=== PATIENT | male | born 1945 | race Caucasian/White ===

== ENCOUNTER 2019-08-29 13:36 | Outpatient (CLI) | payer MEDICARE, SELFPAY ==
--- NOTE | ~2019-08-29 | XR_ITS ---
EXAMINATION: XR chest 2V DATE: 08/29/2019 13:56 INDICATION: Shortness of breath TECHNIQUE: Frontal and lateral views of the chest are obtained COMPARISON: 09/22/2018 FINDINGS: There is severe emphysema. Patchy bilateral airspace opacities are present in the lung base s and right midlung zone. There is a nodular opacity of the right lung base. The cardiomediastinal si lhouette is normal. There is no pleural effusion or pneumothorax. There is mild thoracic spondylosis. IMPRESSION: 1. Patchy airspace opacities and nodular opacity of the right lung base which could be infectious or inflammatory. Recommend followup radiographs in 10-14 days after appropriate therapy to evaluate for improvement/resolution. 2. Emphysema. Reviewed, dictated and finalized at location B. IMPRESSION: 1. Patchy airspace opacities and nodular opacity of the right lung base which c ould be infectious or inflammatory. Recommend followup radiographs in 10-14 day s after appropriate therapy to evaluate for improvement/resolution. 2. Emphysema.
== END 2019-08-29 13:37 | disposition home or self-care (01) ==
PROVIDERS: PCP Family Medicine; Visit Provider Family Medicine
DX: R06.02 Shortness of breath (principal); J43.9 Emphysema, unspecified; R91.8 Other nonspecific abnormal finding of lung field
CPT/HCPCS: 71046

== ENCOUNTER 2019-09-15 11:17 | Outpatient (CLI) | payer MEDICARE, SELFPAY ==
--- NOTE | ~2019-09-15 | XR_ITS ---
EXAMINATION: XR chest 2V DATE: 09/15/2019 11:40 INDICATION: Pneumonia, unspecified organism. TECHNIQUE: Frontal and lateral views of the chest were obtained. COMPARISON: Chest 2 views 08/29/2019, 09/22/2018, chest CT 05/30/2017 FINDINGS: The lungs are hyperexpanded, consistent with emphysema. There are mild airspace opacities i n right mid and lower lung zones with a peripheral predominance. No pleural effusion or pneumothorax. The heart size is normal. IMPRESSION: 1. Unchanged mild peripheral airspace opacities in right mid and lower lung zones, consistent with at electasis/scarring versus pneumonia. 2. Emphysema. Reviewed, dictated and finalized at location A. IMPRESSION: 1. Unchanged mild peripheral airspace opacities in right mid and lower lung zon es, consistent with atelectasis/scarring versus pneumonia. 2. Emphysema.
== END 2019-09-15 11:18 | disposition home or self-care (01) ==
PROVIDERS: PCP Family Medicine; Visit Provider Physician Assistant Medical
DX: J18.9 Pneumonia, unspecified organism (principal); J43.9 Emphysema, unspecified; R91.8 Other nonspecific abnormal finding of lung field
CPT/HCPCS: 71046

== ENCOUNTER 2020-08-05 09:57 | Outpatient (CLI) | payer MEDICARE, SELFPAY | END 2020-08-05 09:58 | disposition home or self-care (01) | LOC: ANHCOVIDVC 09:57 | PROVIDERS: PCP Family Medicine | DX: Z23 Encounter for immunization (principal) | CPT/HCPCS: 0001A; 91300 ==

== ENCOUNTER 2020-08-26 10:02 | Outpatient (CLI) | payer MEDICARE, SELFPAY | END 2020-08-26 10:03 | disposition home or self-care (01) | LOC: ANHCOVIDVC 10:02 | PROVIDERS: PCP Family Medicine | DX: Z23 Encounter for immunization (principal) | CPT/HCPCS: 0002A; 91300 ==

== ENCOUNTER 2020-10-21 15:38 | Outpatient (CLI) | payer MEDICARE, SELFPAY ==
--- NOTE | ~2020-10-21 | CT_ITS ---
EXAMINATION:CT lung screening DATE: 10/21/2020 16:01 INDICATION: Personal history of tobacco dependence. Current smoker with 60 pack year history. TECHNIQUE: Computed tomography (CT) of the chest was performed without intravenous contrast. Automate d exposure control and iterative reconstruction technique were employed. The dose-length product (DLP ) was 116.44 mGy-cm. COMPARISON: Chest CT 05/30/2017 FINDINGS: There is severe emphysema. There is mild atelectasis in right middle lobe and right lower l obe. No pleural effusion. The heart size is normal. There are coronary artery calcifications. There a re calcifications of the aortic valve. No pericardial effusion. The central pulmonary arteries are en larged, consistent with pulmonary arterial hypertension. There are cysts in the liver measuring up to 2.5 cm. There is bilateral gynecomastia. There is mild thoracic spondylosis. IMPRESSION: 1. Lung-RADS category 1: Negative. Continue annual screening with noncontrast low-dose chest CT in 12 months. Reviewed, dictated and finalized at location A. IMPRESSION: 1. Lung-RADS category 1: Negative. Continue annual screening with noncontrast l ow-dose chest CT in 12 months.
== END 2020-10-21 15:39 | disposition home or self-care (01) ==
PROVIDERS: PCP Family Medicine; Visit Provider Internal Medicine Critical Care Medicine
DX: Z12.2 Encounter for screening for malignant neoplasm of respiratory organs (principal); Z87.891 Personal history of nicotine dependence
CPT/HCPCS: 71271

== ENCOUNTER 2020-12-17 12:14 | Outpatient (RCR) | payer MEDICARE, SELFPAY ==
[2020-12-17 14:29] VITALS: BMI 25.1
== END 2021-01-28 12:07 | disposition home or self-care (01) ==
LOC: ANHWOC 12:14
PROVIDERS: PCP Family Medicine; Visit Provider Urology
DX: C67.9 Malignant neoplasm of bladder, unspecified (principal)
CPT/HCPCS: 99212; A9270; G0463

== ENCOUNTER 2021-05-08 07:48 | Outpatient (RCR) | payer MEDICARE, SELFPAY | END 2021-07-16 23:59 | disposition home or self-care (01) | LOC: ANHWOC 07:48 | PROVIDERS: PCP Family Medicine; Visit Provider Urology | DX: C67.9 Malignant neoplasm of bladder, unspecified (principal) | CPT/HCPCS: 99213; G0463 ==

== ENCOUNTER 2021-11-01 13:03 | Emergency (ER) | payer MEDICARE, SELFPAY ==
[2021-11-01 13:18] VITALS: BP 158/74; PULSE 103; RESP 18; TEMP 36.2; O2SAT 95
--- NOTE | 2021-11-01 13:36 | ED.SKABFB ---
HPI - Skin/Abscess/Foreign Bdy General Chief complaint: Skin/Abscess/Foreign Body Stated complaint: itchy rash all over body Time Seen by Provider: 11/01/21 13:16 History of Present Illness HPI narrative: 76-year-old male with history of bullous pemphigoid who has been following up with his doctor for multiple months and has had multiple courses of steroids, doxycycline, amongst many other treatments, with only temporary relief, presents here with the same symptoms, he is mostly concerned about the itchiness. Denies any pain, fevers, or any signs of infection. Related Data Home Medications Medication Instructions Recorded Confirmed niacinamide 500 mg tablet 500 mg PO BID 06/30/21 10/14/21 hydrochlorothiazide 12.5 mg capsule 12.5 mg PO BID 10/14/21 10/14/21 Allergies Allergy/AdvReac Type Severity Reaction Status Date / Time No Known Allergies Allergy Unknown Verified 11/01/21 13:21 Review of Systems Review of Systems: CONST: No fever. HEENT: No sore throat C/V: No chest pain RESP: No cough GI: No nausea/vomiting : No dysuria. M/S: No joint pain. SKIN: Diffuse rash all over body, worst in right lower extremity NEURO: [No headache or focal numbness or weakness] PSYCH: [No depression] FORMERLY [facility], 1928–1983 Past Medical History Medical History BMI 23.0-23.9, adult BMI 24.0-24.9, adult BMI 25.0-25.9,adult BMI 26.0-26.9,adult BMI 27.0-27.9,adult BMI 28.0-28.9,adult BMI 35.0-35.9,adult Bullous pemphigoid Hyperkalemia Hyperlipidemia associated with type 2 diabetes mellitus Hypertension Malignant neoplasm of bladder, unspecified Pneumonia and influenza Pulmonary artery hypertension Rash Tobacco abuse Surgical History Surgical History History of radical prostatectomy Family History Family History Father Cancer Diabetes mellitus Mother Diabetes mellitus Acute myocardial infarction Sibling No problems noted. 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 EYES: EOMI, conjunctiva normal ENT: Hearing grossly intact LUNGS: Nonlabored breathing. HEART: [Regular rate and rhythm] ABD: Stoma in place draining clear urine EXT: Normal range of motion, multiple vesicles RLE non painful, vesicles RUE and several on back, not in dermatomal distribution SKIN: Per above NEURO: [Alert and oriented x 3. No gross focal sensory or strength deficits.] PSYCH: Normal affect Course Course Emergency Course: 76-year-old male who has been dealing with chronic skin rash and itchiness presents with itchiness, vital signs within acceptable limits, distribution and lack of pain not consistent with shingles infection, no signs of infection of the rash, patient very well-appearing, as he already is being followed by his primary care doctor for the bullous pemphigoid I will not try to alter his medications at this time, I will start him on medications for pruritus which include hydroxyzine at night, Zyrtec during the day. He is urged to follow-up with his primary care doctor. Stable fo
--- NOTE | 2021-11-01 13:49 | PC.NURSE ---
Pt has itching and redness and tenderness to the stoma site on his urostomy bag, skin is irritated and states it is chronic.
== END 2021-11-01 14:06 | disposition home or self-care (01) ==
LOC: ANHED 13:48
PROVIDERS: Emergency Provider Emergency Medicine; PCP Family Medicine
DX: L29.9 Pruritus, unspecified (principal); L12.0 Bullous pemphigoid; F17.210 Nicotine dependence, cigarettes, uncomplicated; I10 Essential (primary) hypertension; E78.5 Hyperlipidemia, unspecified; E11.9 Type 2 diabetes mellitus without complications
CPT/HCPCS: 99283

== ENCOUNTER 2021-11-05 12:32 | Outpatient (RCR) | payer MEDICARE, SELFPAY ==
[2021-11-05 14:28] VITALS: BMI 28.6
== END 2022-01-19 08:08 | disposition home or self-care (01) ==
LOC: ANHWOC 12:32
PROVIDERS: PCP Family Medicine; Visit Provider Nurse Practitioner Family
DX: L30.9 Dermatitis, unspecified (principal)
CPT/HCPCS: 99213; G0463

== ENCOUNTER 2021-12-01 09:23 | Emergency (ER) | payer MEDICARE, SELFPAY ==
[2021-12-01] VITALS (7 sets, daily range): BP systolic 112–120; BP diastolic 71–80; PULSE 76–87; RESP 16–18; TEMP 36.4; O2SAT 92–96
--- NOTE | ~2021-12-01 | US_ITS ---
EXAMINATION: US venous doppler [facility] DATE: 12/01/2021 10:34 INDICATION: Bilateral lower limb swelling TECHNIQUE: Grayscale ultrasound images without and with compression and Doppler ultrasound images of the bilateral lower extremity veins were obtained. COMPARISON: None. FINDINGS: The visualized portions of right common femoral vein, profunda (deep) femoral vein, femoral vein, pop liteal vein, posterior tibial veins, peroneal veins, lesser saphenous vein and greater saphenous vein outflow are patent. 3.2 x 1.2 x 3.7 cm Evans cyst at the right popliteal fossa. The visualized portions of left common femoral vein, profunda femoral vein, femoral vein, popliteal v ein, posterior tibial veins, peroneal veins, lesser saphenous vein and greater saphenous vein outflow are patent. IMPRESSION: 1. No deep venous thrombosis in either lower limb. 2. Small Evans's cyst at the right popliteal fossa. Reviewed, dictated and finalized at location A.
--- NOTE | ~2021-12-01 | XR_ITS ---
EXAMINATION: XR chest 2V DATE: 12/01/2021 09:59 INDICATION: Fatigue and shortness of breath TECHNIQUE: AP and lateral views of the chest are obtained. COMPARISON: None available FINDINGS: The lungs are hyperinflated but free of acute opacities. There is no pleural effusion or pn eumothorax. The cardiomediastinal silhouette is normal. There is mild thoracic spondylosis. IMPRESSION: 1. No acute cardiopulmonary abnormality. Reviewed, dictated and finalized at location A.
--- NOTE | 2021-12-01 09:34 | ECG_ITS ---
Measurements Intervals [place] Rate: 77 P: 77 UT: 164 QRS: -21 QRSD: 90 T: -1 QT: 339 QTc: 385 Interpretive Statements SINUS RHYTHM WITH OCCASIONAL SUPRAVENTRICULAR PREMATURE COMPLEXES LOW QRS VOLTAGE IN PRECORDIAL LEADS [QRS DEFLECTION < 1.0 mV IN CHEST LEADS] ANTERIOR MYOCARDIAL INFARCTION , OLD [40+ ms Q WAVE IN V1-V4] COMPARED TO ECG 03/29/2019 15:44:54 T-WAVE ABNORMALITIES HAVE IMPROVED Electronically Signed On 12-01-2021 15:52:10 CDT by Cory Phillips M.D.
--- NOTE | 2021-12-01 09:35 | ED.BACK ---
HPI - Back Pain/Injury General Chief Complaint: Back Pain/Injury Stated Complaint: kidney problems/pain x 6-7 days Time Seen by Provider: 12/01/21 09:23 History of Present Illness HPI Narrative: Patient is a 76-year-old male here with a history of DM, COPD, pulmonary HTN, bullous pemphigoid for evaluation of fatigue and weakness over the past several weeks. Patient states that he has been feeling generally unwell and fatigued. He has been evaluated by his primary care provider without clear etiology, although he was treated for UTI about a month ago. Of note, urine culture did not grow any bacteria. Does note that he feels short of breath and nauseated but denies vomiting. He has a history of chronic leg swelling, was taking a diuretic but was taken off of this due to kidney function. Leg swelling is now worse. States his low back with aching over the past couple of days, but his not having any back pain today. Denies chest pain, fevers, chills, diarrhea, constipation, blood in stools, changes to his weight. He has a uterotomy bag due to bladder and prostate cancer. Related Data Home Medications Medication Instructions Recorded Confirmed niacinamide 500 mg tablet 500 mg PO BID 06/30/21 11/25/21 hydrochlorothiazide 12.5 mg capsule 12.5 mg PO BID 10/14/21 11/25/21 empagliflozin 25 mg tablet 25 mg PO DAILY 11/25/21 11/25/21 (Jardiance) Allergies Allergy/AdvReac Type Severity Reaction Status Date / Time No Known Allergies Allergy Unknown Verified 12/01/21 09:28 Review of Systems Review of Systems: Gen: Reports weakness. Denies fevers or chills Eyes: Denies eye pain or visual change ENT: Denies congestion Respiratory: Denies shortness of breath or cough CV: Denies chest pain or palpitations GI: Reports nausea. Denies abdominal pain, emesis or diarrhea denies burning, urgency, frequency or hematuria Musculoskeletal: Reports back pain, resolved. Reports leg swelling. Denies muscle pain Neuro: Denies numbness, tingling, focal weakness Skin: Denies rash Except as documented, all other systems reviewed and negative PMFSH Past Medical History Medical History BMI 23.0-23.9, adult BMI 24.0-24.9, adult BMI 25.0-25.9,adult BMI 26.0-26.9,adult BMI 27.0-27.9,adult BMI 28.0-28.9,adult BMI 35.0-35.9,adult Bullous pemphigoid Hyperkalemia Hyperlipidemia associated with type 2 diabetes mellitus Hypertension Malignant neoplasm of bladder, unspecified Pneumonia and influenza Pulmonary artery hypertension Rash Tobacco abuse Surgical History Surgical History History of radical prostatectomy Family History Family History Father Cancer Diabetes mellitus Pancreatic cancer Mother Diabetes mellitus Acute myocardial infarction Heart disease Sibling No problems noted. 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 Head: Normocephalic and atraumatic. EYES: PERRLA/EOMI, conjunctivae clear NOSE: No nasal drainage EARS: External ear normal in appearance THROAT: Oropharynx is clear. Mucous membranes are moist. NECK: [place]
[2021-12-01 10:02] LABS: Basophils Percent Auto 0.1 % (0.2-1.2); Hematocrit 50.9 % (42.0-52.0); Immature Granulocyte Absolute 0.14 K/mm3 (0.00-0.031); Immature Granulocyte Percent A 0.9 % (0-0.5); Lymphocytes Absolute Auto 0.57 K/mm3 (0.9-3.2); Lymphocytes Percent Auto 3.8 % (18.3-44.2); Mean Corpuscular HGB Conc 33.4 g/dl (32-36); Mean Corpuscular Hemoglobin 28.9 pg (26-34); Mean Corpuscular Volume 86.4 fl (80-100); Mean Platelet Volume 8.9 fl (7.4-10.4); Monocytes Absolute Auto 0.5 K/mm3 (0.1-0.6); Monocytes Percent Auto 3.3 % (2.6-8.5); Neutrophils Absolute Auto 13.8 K/mm3 (1.3-6.7); Neutrophils Percent Auto 91.9 % (45.5-73.1); Nucleated Red Blood Cells Perc 0.1 % (0.0-0.2); Platelet Count Result 179 k/mm3 (150-375); Red Blood Count 5.89 M/mm3 (4.6-6.20); Red Cell Distribution Width 14.2 % (11.5-14.5)
[2021-12-01 10:04] LABS: Appearance Urine Clear (Clear); Bilirubin Urine Negative (Negative); Blood Urine 2+ (Negative); Color Urine Yellow (Yellow); Glucose Urine UA 1+ mg/dL (Negative); Ketones Urine Negative (Negative); Leukocyte Esterase Ur Negative LEU/UL (Negative); Nitrate Urine Negative (Negative); Protein Urine 3+ mg/dL (Negative); Specific Grav Ur 1.015 (1.001-1.035); Urobilinogen Urine 0.2 mg/dL (<2.0)
[2021-12-01 10:07] LABS: Add Urine Microscopic? YES
[2021-12-01 10:15] LABS: Bacteria Urine Trace /hpf; Mucus Urine Rare /lpf; Squamous Epithelial Cell Urine Rare /hpf (Few)
[2021-12-01 10:21] LABS: Sodium 132 mmol/L (137-145)
[2021-12-01 10:25] LABS: Alanine Aminotransferase 39 U/L (6-50); Albumin Level 3.9 g/dL (3.5-5.1); Alkaline Phosphatase 50 U/L (38-126); Anion Gap 7 mmol/L (8-16); Aspartate Amino Transferase 29 U/L (17-59); Bilirubin,Total 0.6 mg/dL (0.2-1.3); Blood Urea Nitrogen 60 mg/dL (9-20); Calcium 10.4 mg/dL (8.4-10.2); Carbon Dioxide 20 mmol/L (22-30); Chloride 105 mmol/L (98-107); Estimated CRCL calculation 35 ml/min; Estimated Glomerular Filt Rate 45; Glucose 202 mg/dL (65-110); Potassium 4.3 mmol/L (3.4-5.0)
[2021-12-01 10:28] LABS: NT Pro B Type Natriuretic Pept 268 pg/mL (5-100)
[2021-12-01 10:45] LABS: Magnesium 2.1 mg/dL (1.6-2.3)
--- NOTE | 2021-12-01 12:16 | PC.NURSE ---
home medication list put in pt. discharge folder. Pt. signed discharge instruction sheet but refused verbal discharge instructions. Pt. in NAD. Shirt returned to pt. Pt. refuses to change and didn't want me checking to see if his gown is untied. Asked Why isn't my stupid here? . States he cannot provide a number to call to notify his he needs picked up.
--- NOTE | 2021-12-01 12:16 | PC.NURSE ---
IV lock was in L AC, removed, dressing applied. Multiple bruises on LUE prior to removal.
--- NOTE | 2021-12-01 12:23 | PC.NURSE ---
contacted by Gunjan Brunner RN prior to this time supposed to be enroute.
== END 2021-12-01 17:02 | disposition home or self-care (01) ==
PROVIDERS: Physician Assistant; Emergency Provider Emergency Medicine; PCP Family Medicine
DX: L03.115 Cellulitis of right lower limb (principal); J44.9 Chronic obstructive pulmonary disease, unspecified; E11.69 Type 2 diabetes mellitus with other specified complication; E78.5 Hyperlipidemia, unspecified; I10 Essential (primary) hypertension; I27.21 Secondary pulmonary arterial hypertension; M79.89 Other specified soft tissue disorders; R06.02 Shortness of breath; Z85.51 Personal history of malignant neoplasm of bladder; Z87.01 Personal history of pneumonia (recurrent); Z90.79 Acquired absence of other genital organ(s); Z87.891 Personal history of nicotine dependence; Z79.84 Long term (current) use of oral hypoglycemic drugs; R94.31 Abnormal electrocardiogram [ECG] [EKG]
CPT/HCPCS: 36415; 71046; 80053; 81001; 83735; 83880; 84100; 85025; 93005; 93970; 99284

== ENCOUNTER 2021-12-07 19:40 | Inpatient (IN) | payer MEDICARE, SELFPAY ==
[2021-12-07] VITALS (21 sets, daily range): BP systolic 100–131; BP diastolic 49–68; PULSE 90–113; RESP 15–24; TEMP 36.6; O2SAT 93–100
--- NOTE | ~2021-12-07 | XR_ITS ---
EXAMINATION: XR chest 1V portable Exam Date/Time: 12/07/2021 20:17 CDT HISTORY: cough Comparison: 12/01/2021. RESULT: Lines, tubes, and devices: None. Lungs and pleura: Senescent change, otherwise clear. Cardiomediastinal silhouette: Stable cardiomediastinal silhouette. Other: No acute osseous or upper abdominal finding. IMPRESSION: No acute cardiopulmonary process. Reviewed, dictated and finalized at location K.
--- NOTE | ~2021-12-07 | CT_ITS ---
EXAMINATION: CT abdomen pelvis wo con DATE: 12/07/2021 21:09 INDICATION: weaknesss TECHNIQUE: Computed tomography (CT) of the abdomen and pelvis was performed without intravenous contr ast. Automated exposure control and iterative reconstruction technique were employed. The dose-length product was 686.73 mGy-cm. COMPARISON: 05/12/2006. FINDINGS: Lower thorax: Senescent changes in the lungs. Right lower pleural bleb with surrounding fibrosis. Aor tic valve calcification Liver: Normal. Biliary/Gallbladder: Gallbladder is normal. No bile duct dilation. Pancreas: No mass or duct dilation. Spleen: Normal. Adrenals:No mass. Kidneys: No mass, stone, or hydronephrosis. Bilateral perinephric stranding. GI tract: No small or large bowel dilation. Normal appendix. Post surgical changes in the bowel inclu ding a dilated appearing right lower quadrant small bowel anastomosis, without any dilation of proxim al small bowel, right lower quadrant ostomy, and anastomosis of the bilateral ureters with the ileum. Diverticulosis without diverticulitis. Mesentery/Peritoneum: No ascites, mass, or free air. Retroperitoneum: No mass. Atherosclerotic abdominal aortic and/or arterial calcifications. 3.2 cm inf rarenal abdominal aortic aneurysm. Pelvis: Bladder is surgically absent.. Soft Tissues: Large fat herniation into the right lower quadrant ostomy, without bowel obstruction. Bones: No acute osseous finding. IMPRESSION: No acute abdominopelvic process. Reviewed, dictated and finalized at location K.
--- NOTE | ~2021-12-07 | NM_ITS ---
EXAMINATION: NM GI bleeding DATE: 12/16/2021 16:56 CDT INDICATION: GI bleeding. TECHNIQUE: 22.9 mCi Tc 99m in vitro labeled red cells administered intravenously. Scintigraphic imag es of the abdomen were obtained through 1 hour. FINDINGS: There is abnormal radiotracer accumulation in the right central abdomen which progresses in to the left abdomen over the course of the examination. IMPRESSION: 1. Active GI bleed which may originate in the proximal small bowel or the transverse colon. Reviewed, dictated and finalized at location A. IMPRESSION: 1. Active GI bleed which may originate in the proximal small bowel or the booth sverse colon.
--- NOTE | ~2021-12-07 | US_ITS ---
EXAMINATION: US renal BI DATE: 12/09/2021 12:42 INDICATION: Elevated creatinine TECHNIQUE: Multiple grayscale and Doppler ultrasound images of the kidneys were obtained. COMPARISON: None. FINDINGS: The right kidney measures 11.9 x 5.7 x 7.0 cm. The left kidney measures 11.4 x 6.1 x 6.2 cm . The kidneys demonstrate normal parenchymal echogenicity. There is no hydronephrosis. The bladder is not distended. IMPRESSION: 1. Normal kidneys without hydronephrosis. Reviewed, dictated and finalized at location B.
--- NOTE | ~2021-12-07 | NM_ITS ---
EXAMINATION: NM GI bleeding DATE: 12/11/2021 14:59 INDICATION: Gastrointestinal bleed TECHNIQUE: 18.6 mCi Tc 99m UltraTag in vitro labeled red cells administered intravenously. Scintigra phic images of the abdomen were obtained through 43 minutes. FINDINGS: Activity is first seen in the bowels in the right upper quadrant at 3-4 minutes in the margareth on of the proximal duodenum. There is good movement movement of the activity fossa midline extending into a the jejunum initially in the left upper quadrant and left subsequently in the more caudally in the left abdomen. IMPRESSION: 1. Active gastrointestinal bleed which appears to originate in the proximal duodenum in the right up per quadrant which suggests possibility of peptic ulcer disease. Consider endoscopy for further evalu ation. Reviewed, dictated and finalized at location A. IMPRESSION: 1. Active gastrointestinal bleed which appears to originate in the proximal du odenum in the right upper quadrant which suggests possibility of peptic ulcer d isease. Consider endoscopy for further evaluation.
--- NOTE | 2021-12-07 19:50 | ECG_ITS ---
Measurements Intervals [place] Rate: 93 P: 76 MO: 166 QRS: -41 QRSD: 86 T: 60 QT: 291 QTc: 363 Interpretive Statements SINUS RHYTHM LOW QRS VOLTAGE IN LIMB LEADS INFERIOR INFARCT, AGE INDETERMINATE ANTEROSEPTAL INFARCT, AGE INDETERMINATE BORDERLINE T WAVE ABNORMALITY- HIGH LATERAL LEADS BASELINE ARTIFACT- I, III, AVL, V4 ABNORMAL ECG Electronically Signed On 12-07-2021 21:08:24 CDT by Osmani Cain D.O.
[2021-12-07 20:17] LABS: Basophils Percent Auto 0.2 % (0.2-1.2); Hemoglobin 17.7 g/dL (14.0-18.0); Immature Granulocyte Absolute 0.16 K/mm3 (0.00-0.031); Immature Granulocyte Percent A 1.3 % (0-0.5); Lymphocytes Absolute Auto 0.35 K/mm3 (0.9-3.2); Lymphocytes Percent Auto 2.8 % (18.3-44.2); Mean Corpuscular HGB Conc 33.4 g/dl (32-36); Mean Corpuscular Hemoglobin 28.3 pg (26-34); Mean Corpuscular Volume 84.8 fl (80-100); Mean Platelet Volume 8.8 fl (7.4-10.4); Monocytes Absolute Auto 0.2 K/mm3 (0.1-0.6); Monocytes Percent Auto 1.7 % (2.6-8.5); Neutrophils Absolute Auto 11.8 K/mm3 (1.3-6.7); Nucleated Red Blood Cells Perc 0.3 % (0.0-0.2); Platelet Count Result 209 k/mm3 (150-375); Red Blood Count 6.25 M/mm3 (4.6-6.20); Red Cell Distribution Width 14.2 % (11.5-14.5); White Blood Count 12.6 K/mm3 (4.5-10.0)
[2021-12-07 20:21] LABS: Alveolar/Arterial O2 Gradient 65.2 mmHg; Base Excess ABG -14.9 mEq/l (+/-2.0); Fractional Inspired Oxygen 28 %; HCO3 ABG 11.8 mEq/l (22.0-26.0); Oxygen Content ABG 23.3 %vol (16.0-22.0); Oxyhemoglobin 95.6 % THb (90.0-100.0); PCO2 ABG 31.5 mmHg (35.0-45.0); PO2 ABG 97.3 mmHg (80.0-100.0); PO2 FiO2 Ratio Arterial Blood 3.48 %; Total Hemoglobin 17.3 g/dL (12.0-18.0)
[2021-12-07 20:23] LABS: Device NASAL CANNULA; Modified Allen's Test Pass; Site Drawn RIGHT RADIAL; pH ABG 7.193 (7.350-7.450)
[2021-12-07 20:28] LABS: Burr Cells 1+ (NORMAL); Platelet Estimate Adequate (Adequate); Poikilocytosis 1+ (NORMAL)
[2021-12-07 20:29] LABS: Alanine Aminotransferase 41 U/L (6-50); Albumin Level 3.8 g/dL (3.5-5.1); Alkaline Phosphatase 53 U/L (38-126); Anion Gap 14 mmol/L (8-16); Aspartate Amino Transferase 34 U/L (17-59); Bilirubin,Total 0.6 mg/dL (0.2-1.3); Blood Urea Nitrogen 95 mg/dL (9-20); Carbon Dioxide 12 mmol/L (22-30); Chloride 103 mmol/L (98-107); Glucose 228 mg/dL (65-110); Potassium 5.9 mmol/L (3.4-5.0); Sodium 129 mmol/L (137-145)
[2021-12-07 20:38] LABS: Estimated CRCL calculation 16 ml/min; Estimated Glomerular Filt Rate 18; NT Pro B Type Natriuretic Pept 555 pg/mL (5-100)
[2021-12-07] MEDS: SODIUM CHLORIDE 0.9% IV 1,000 ML 999 ML IV CONT (20:49)
--- NOTE | 2021-12-07 20:55 | ED.WEAKNESS ---
HPI - Weakness General Chief complaint: Weakness Stated complaint: weakness diarrhea lethargy Time Seen by Provider: 12/07/21 19:47 Source: patient History of Present Illness HPI Narrative: Patient presents with generalized weakness and fatigue. Patient reports he was seen the other day was diagnosed with a skin infection discharged home on antibiotics. Reports his cellulitis has improved however his weakness continued to worsen so they return to the ER for further evaluation. Patient denies any focal areas of pain such as chest pain or abdominal pain. He denies nausea and vomiting. He does report diarrhea since initiating his antibiotics for cellulitis. He is also reporting shortness of breath and cough. Reports overall he feels like his weakness is progressively worse over the past couple weeks Related Data Home Medications Medication Instructions Recorded Confirmed niacinamide 500 mg tablet 500 mg PO BID 06/30/21 11/25/21 hydrochlorothiazide 12.5 mg capsule 12.5 mg PO BID 10/14/21 11/25/21 empagliflozin 25 mg tablet 25 mg PO DAILY 11/25/21 11/25/21 (Jardiance) doxycycline hyclate 100 mg capsule cap 12/07/21 prednisone 20 mg tablet tablet 12/07/21 rosuvastatin 40 mg tablet tablet 12/07/21 Allergies Allergy/AdvReac Type Severity Reaction Status Date / Time No Known Allergies Allergy Unknown Verified 12/07/21 19:52 Review of Systems Review of Systems: CONSTITUTIONAL: Denies fever, chills, or sweats. EYES: Denies visual changes, redness, or discharge. ENT: Denies rhinorrhea, congestion, sore throat, or otalgia. CARDIOVASCULAR: Denies chest pain, palpitations, or edema. RESPIRATORY: Denies cough or dyspnea. GASTROINTESTINAL: Denies abdominal pain, nausea, vomiting, or diarrhea. GENITOURINARY: Denies dysuria or hematuria. SKIN: Denies rash or itching. MUSCULOSKELETAL: Denies back pain, joint pain, or myalgia. NEUROLOGIC: Denies headache, numbness, dizziness, or focal weakness. PSYCHIATRIC: Denies anxiety or depression. All systems reviewed & are unremarkable except as noted in HPI and below PMFSH Past Medical History Medical History BMI 23.0-23.9, adult BMI 24.0-24.9, adult BMI 25.0-25.9,adult BMI 26.0-26.9,adult BMI 27.0-27.9,adult BMI 28.0-28.9,adult BMI 35.0-35.9,adult Bullous pemphigoid Hyperkalemia Hyperlipidemia associated with type 2 diabetes mellitus Hypertension Malignant neoplasm of bladder, unspecified Pneumonia and influenza Pulmonary artery hypertension Rash Tobacco abuse Surgical History Surgical History History of radical prostatectomy Family History Family History Father Cancer Diabetes mellitus Pancreatic cancer Mother Diabetes mellitus Acute myocardial infarction Heart disease Sibling No problems noted. 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 HEAD: Normocephalic, atraumatic. EYES: PERRLA and EOMI. ENT: Nares clear, no rhinorrhea or epistaxis. Mucous membranes moist. NECK: Supple. No masses. No JVD CHEST: Clear to auscultation
--- NOTE | 2021-12-07 21:00 | PC.NURSE ---
Patient in CT at this time.
[2021-12-07 21:32] LABS: Appearance Urine Slightly Cloudy (Clear); Bilirubin Urine 3+ (Negative); Blood Urine 2+ (Negative); Color Urine Yellow (Yellow); Glucose Urine UA Negative (Negative); Ketones Urine Negative (Negative); Leukocyte Esterase Ur 1+ LEU/UL (Negative); Nitrate Urine Negative (Negative); Protein Urine 3+ mg/dL (Negative); Specific Grav Ur 1.015 (1.001-1.035); Urobilinogen Urine 0.2 mg/dL (<2.0); pH Urine >=9.0 (5.0-9.0)
[2021-12-07 21:41] LABS: Bacteria Urine Trace /hpf; Mucus Urine Rare /lpf; Squamous Epithelial Cell Urine Rare /hpf (Few); WBC Urine 31-50 /hpf
[2021-12-07 21:42] LABS: Add Urine Microscopic? YES
[2021-12-07] MEDS: FUROSEMIDE INJ 40 MG/4 ML VIAL IV PUSH (21:49)
[2021-12-07] MEDS: INSULIN HUMAN REGULAR (*BKC) 100 UNITS/ML 8 UNITS IV PUSH (21:49)
--- NOTE | 2021-12-07 22:00 | PC.NURSE ---
Attempted to draw lactic, this nurse attempted, and 2 ED techs, unsuccessful,Phlebotomy called,manager house also looking.
[2021-12-07] MEDS: ALBUTEROL SULFATE NEB 2.5 MG/3 ML INH 5 MG INHALATION (22:14)
[2021-12-07] MEDS: SODIUM ZIRCONIUM CYCLOSILICATE 10 GM POWD.PACK PO (22:21)
[2021-12-07 22:24] LABS: Lactic Acid Reflex 3.5 mmol/L (0.7-2.0)
[2021-12-07] MEDS: CALCIUM GLUCONATE 1,000 MG/10 ML VIAL 1000 MG IV PUSH (23:01)
--- NOTE | 2021-12-07 23:25 | PM.IMHP ---
H&P: HPI History of Present Illness Date/Time: Patient was placed observation status for expected length of stay less than 23 hours for management, will plan to re-evaluate tomorrow for improvement. 12/07/21 23:25 Chief Complaint: Weakness Narrative: Mr. Canales is a 76-year-old gentleman who presented emergency room with complaints of increasing weakness. Patient was seen in the emergency room on 12/01/2021 with complaints of fatigue and weakness for several weeks. Patient stated at that time he had been generally feeling unwell and fatigued. Patient had been evaluated by his primary care provider without a clear etiology of his weakness. Patient at that time was diagnosed with cellulitis and was sent home on Keflex. Patient is already on doxycycline for his history of bullous pemphigoid. Patient states that he has progressively gotten weaker and over the last 2 days he has had diarrhea. Patient states he has also been dry heaving, but has had no vomiting. Patient states today he did tolerate a soft well that for breakfast and half a cup of applesauce later that day. Patient's spouse states the patient was supposed to follow up with Nephrology in January, and they were attempting to get an earlier appointment secondary to patient not feeling well. Patient denies any chest pain, abnormal shortness of breath, lightheadedness, dizziness, syncopal, or near syncopal episodes. Patient does wear oxygen at 2 L at home per nasal cannula at night. Patient is supposed to be wearing oxygen at all times, but he states he only wears it during the day if he is feeling unwell. Patient states over the last 2 days he has been wearing it 24 hours a day. Patient states that he feels the cellulitis he was treated for on the 01 of December has significantly improved. Patient states he does continue to have edema to bilateral extremities, but this is a chronic issue. Patient states that he also does have discoloration to bilateral feet and they are chronically cold secondary to poor circulation. Upon evaluation in emergency room patient was noted to have hyperkalemia with a BUN and creatinine that were more elevated than normal. Patient states he has been nauseated. Patient does have a history of bladder cancer and urostomy. Patient states he has been taking all medications at home as best he can secondary to his nausea. Patient states that he does have a history of COPD and he has been using his DuoNebs at least daily if not twice daily. Review of Systems Review of Systems: A 12 point review of systems was completed patient all pertinent positive and negative per HPI the remainder are unremarkable. [facility] Past Medical History Medical History (Updated 12/07/21 @ 23:42 by Pat Parada APRN) BMI 26.0-26.9,adult BMI 27.0-27.9,adult Bullous pemphigoid Chronic kidney disease COPD (chronic obstructive pulmonary disease) Hyperkalemia Hyperlipidemia associated with type 2 diabetes mellitus Hypertension Malignant neoplasm of bladder, unspecified On home oxygen therapy Pneumonia and influenza Pulmonary artery hypertension Rash Tobacco abuse Surgical History Surgical History (Updated 12/07/21 @ 23:37 by Pat Parada APRN) History of radical prostatectomy History of urostomy Family History Family History Father Cancer Diabetes mellitus Pancreatic cancer Mother Diabetes mellitus Acute myocardial infarction Heart disease Sibling No problems noted. Social History Social History Smoking packs per day: 1 Smoking cigarettes per day: 20.0 Years smoked: 60 Smoking pack-years: 60.00 Smoking status: Former smoker (quit spring 2020) Tobacco type: cigarettes Second hand tobacco smoke exposure: Yes Smoking end date: 08/05/20 Alcohol intake: current Drinks per week:
[2021-12-08] VITALS (17 sets, daily range): BP systolic 102–116; BP diastolic 55–62; PULSE 93–111; RESP 14–20; TEMP 36.3–36.5; O2SAT 92–98; BMI 25.2
--- NOTE | 2021-12-08 00:20 | ADMGEN ---
This patient, Raimundo Canales, was admitted to Medical Room 240-01. Patient/family oriented to hospital policies and general routines including ID bracelet, bed and alarms, visiting hours, pain management, procedures, bathroom and other care routines, personal items, smoking policy, room service/diet, and visiting hours. Information on how to activate the Rapid Response Team has been discussed. Patient/Family are encouraged to report perceived risks to care and to ask questions if they do not understand what they are told or what they should do.
[2021-12-08 01:12] LABS: Reflex Lactic Acid Yes or No Add Lactic
[2021-12-08 01:21] LABS: Anion Gap 16 mmol/L (8-16); Blood Urea Nitrogen 91 mg/dL (9-20); Calcium 10.1 mg/dL (8.4-10.2); Carbon Dioxide 11 mmol/L (22-30); Chloride 105 mmol/L (98-107); Estimated CRCL calculation 16 ml/min; Estimated Glomerular Filt Rate 18; Glucose 99 mg/dL (65-110); Phosphorus 5.6 mg/dL (2.5-4.5); Sodium 132 mmol/L (137-145)
[2021-12-08 05:48] LABS: Lactic Acid 2.5 mmol/L (0.7-2.0)
[2021-12-08 06:05] LABS: Albumin Level 3.4 g/dL (3.5-5.1); Anion Gap 17 mmol/L (8-16); Blood Urea Nitrogen 96 mg/dL (9-20); Calcium 9.9 mg/dL (8.4-10.2); Carbon Dioxide 11 mmol/L (22-30); Chloride 104 mmol/L (98-107); Estimated CRCL calculation 15 ml/min; Estimated Glomerular Filt Rate 17; Glucose 143 mg/dL (65-110); Phosphorus 6.7 mg/dL (2.5-4.5); Potassium 5.7 mmol/L (3.4-5.0); Sodium 132 mmol/L (137-145)
[2021-12-08 07:54] LABS: Glucose Point of Care 168 mg/dl (65-105)
--- NOTE | 2021-12-08 07:57 | PM.CNNEP ---
Assessment and Plan Additional Plan 1. the patient has chronic kidney disease. This is most likely to diabetes and hypertension. He has not been evaluated for other causes though. Possibilities include infiltrative diseases and inflammatory diseases. Obstruction is always a possibility as well. I will order a renal ultrasound. He does have an ileostomy however so may have the appearance of ultrasound because of the presence of the ileostomy the insertion of the ureters in to this. I will order KENDAL, sed rate, complements, immunofixation, and a renal ultrasound. 2. The patient has acute on chronic kidney disease. The patient has had nausea vomiting and diarrhea. Been eating. He is probably dehydrated. I will give him some IV fluids. Progressive diabetic kidney is a possibility as well but this is somewhat rapid for just simple progression. Obstruction is always a possibility as well. He could have passed a stone. Allergic interstitial nephritis is less likely but possible because he is on antibiotics for that cellulitis. Rhabdomyolysis is always a possibility so will check a CPK. Will give him IV fluids. His sugar is low I will give him D5 with the isotonic fluid 3. The patient has pyuria and a mildly elevated white count in his blood. He could also have a UTI as well as cellulitis. He is on ceftriaxone. Will get some blood cultures. Urine cultures are pending. will add vancomycin to the mix. 4. Sodium level is slightly low. This is improving with time. Will keep an eye on this. Normal saline should help this. Will check a Cortisol and TSH in case it persists. 5. the patient has a metabolic acidosis. Anion gap is about 17. Lactic acid is a little bit high. Uremic acids it also could be a possibility. Ketones could be high because of starvation ketosis. His sugars are not high so I doubt if this is DKA. Does the bicarb is so low and he has renal impairment will add some bicarb to the fluid. Lactate levels are decreasing. He is on metformin which may have caused this. Will check another lactic acid level later today. 6. Phosphorus level is high. Will keep an eye on this. Consider binders if he starts eating at all. 7. Potassium is 5.7. Will give Lokelma. 8. Diabetes. He is on insulin and sliding scale Per hospitalists. 9. Patient has hypertension. Blood pressure is well controlled. 10. The patient has edema. This is probably from nephrotic syndrome. He is probably still volume depleted. Consider albumin supplementation once we learn a little bit more. History of Present Illness Reason for Consult Consult date: 12/08/21 Chief Complaint Chief complaint: Hyperkalemia History of Present Illness Narrative: Raimundo is a very pleasant 76-year-old gentleman is who has multiple medical problems including chronic kidney disease with a baseline creatinine of 1.5, proteinuria, diabetes, diabetic retinopathy, bladder cancer status post resection of the bladder and ileostomy, hypertension, COPD, bullous pemphigoid, pulmonary hypertension, former tobacco abuse but he does not smoke anymore, hyperlipidemia. The patient has been sick for couple of weeks. Has had nausea. He has been unable to eat. He also has some belly discomfort. He also has had diarrhea. He has had gradually worsening swelling. About a week ago he came to the emergency room was found to have cellulitis. He was treated with an antibiotic. He never did really get any better but he has continued to have nausea and diarrhea. His swelling has also worsened. He has gradually gotten weaker as well. He was going to see Dr. Hernández in the office but was unable to get an appointment for quite a while. Because he was getting worse he decided to come back to the ER. He has not noted dark urine or bloody urine. Review of Systems Constitutional: Constitutional: Reports no additional constitutional complaints Eyes: Eyes: Reports n
[2021-12-08 08:44] LABS: Parathyroid Intact 46.5 pg/mL (7.5-53.5)
[2021-12-08 08:48] LABS: Complement C3 100 mg/dL (88-165)
[2021-12-08] MEDS: FLUTICASONE/SALMETEROL 230-21 MCG INHALER 1 PUFF 2 PUFF INHALATION (08:53)
[2021-12-08] MEDS: IPRATROPIUM BR 0.02% INH SOLN 0.5 MG/2.5 ML VIAL INHALATION ×2 (08:53→14:08)
[2021-12-08] MEDS: ALBUTEROL SULFATE NEB 2.5 MG/3 ML INH INHALATION ×2 (08:53→14:08)
[2021-12-08] MEDS: SODIUM BICARBONATE 8.4% 150 MEQ in DEXTROSE 5% 1,000 ML 950 ML 100 MEQ IV CONT ×2 (09:23→21:00)
[2021-12-08] MEDS: ONDANSETRON INJ 4 MG/2 ML VIAL IV PUSH (09:24)
[2021-12-08] MEDS: HEPARIN SODIUM 5,000 UNITS/ML VIAL 5000 UNITS SUB-Q ×2 (09:24→20:59)
[2021-12-08] MEDS: ROSUVASTATIN 10 MG TABLET 40 MG PO (09:24)
[2021-12-08] MEDS: SODIUM ZIRCONIUM CYCLOSILICATE 10 GM POWD.PACK PO (11:01)
[2021-12-08 12:02] LABS: Glucose Point of Care 270 mg/dl (65-105)
[2021-12-08 12:04] LABS: Creatinine Urine 19.3 mg/dL; Total Protein Urine Random 77 mg/dL; Ur Ttl Prot Creatinine Ratio 3.99 mg/mg (0-0.20)
[2021-12-08 12:05] LABS: Sodium Urine Random 81 meq/L
[2021-12-08] MEDS: INSULIN ASPART (*BKC) 100 UNITS/ML SUB-Q ×2 (12:11→16:41)
--- NOTE | 2021-12-08 12:42 | PM.IMPN ---
Progress Note: A&P Assessment and Plan (1) Acute kidney injury superimposed on chronic kidney disease: Code(s): N17.9 - Acute kidney failure, unspecified; N18.9 - Chronic kidney disease, unspecified Status: Acute Assessment and Plan: Most likely multifactorial including dehydration from diarrhea as well as advancing kidney disease. Patient did receive a L of IV fluids in the emergency room. Nephrology Consul, monitor labs (2) Acute hyperkalemia: Code(s): E87.5 - Hyperkalemia Status: Acute Assessment and Plan: Monitor (3) Acidosis: Code(s): E87.2 - Acidosis Status: Acute Assessment and Plan: Metabolic. Complicated by renal failure. (4) Diarrhea: Code(s): R19.7 - Diarrhea, unspecified Status: Acute Assessment and Plan: C diff pending (5) UTI (urinary tract infection): Code(s): N39.0 - Urinary tract infection, site not specified Status: Acute Assessment and Plan: Rocephin Subjective Date/time seen: 12/08/21 12:42 Having complaints of nausea. Mild abdominal cramping. Exam Narrative: Constitutional: Patient is well-nourished in no acute distress. Patient is alert and oriented x3 HEENT: Moist mucous membranes. No scleral icterus. No lymphadenopathy. Neck: No carotid bruits noted no JVD noted Lungs: Patient has expiratory wheezes noted to bilateral lung silveira upon auscultation. Accessory muscle use. Cardiovascular: Apical pulse is regular rate and rhythm. S1-S2 noted, no S3 or S4 noted. No gallops, murmurs, or rubs noted. Abdomen: Soft, round, and nontender. No palpable masses. Urostomy bags in place draining a clear yellow urine. Extremities: 3+ edema noted to bilateral lower extremities from gambino to feet. Patient's toes and feet are purple in color. Pedal pulses are palpable at 1+. Neurological: No focal neurological deficits. Cranial nerves II-XII grossly intact. Psychiatric: Cooperative, appropriate mood, and affect Objective Data Vital Signs Vital Signs: Vital Signs - 24 hr 12/07/21 19:40 12/07/21 20:09 12/07/21 20:15 Temperature 97.8 F Pulse Rate 95 97 96 Respiratory Rate 17 15 Blood Pressure 100/68 Pulse Oximetry 93 Oxygen Delivery Room Air 12/07/21 20:16 07/03/22 20:30 12/07/21 20:31 Temperature Pulse Rate 96 93 93 Respiratory Rate 20 19 17 Blood Pressure 106/60 116/68 Pulse Oximetry 93 Oxygen Delivery 12/07/21 20:45 12/07/21 21:09 12/07/21 21:10 Temperature Pulse Rate 90 101 H 94 Respiratory Rate 16 21 H 21 H Blood Pressure 111/65 Pulse Oximetry 98 Oxygen Delivery 12/07/21 21:15 12/07/21 21:52 12/07/21 22:00 Temperature Pulse Rate 91 91 98 Respiratory Rate 15 16 17 Blood Pressure Pulse Oximetry 99 Oxygen Delivery 12/07/21 22:14 12/07/21 22:19 12/07/21 22:15 Temperature Pulse Rate 112 H 113 H Respiratory Rate 24 H 22 H 19 Blood Pressure Pulse Oximetry 100 Oxygen Delivery 12/07/21 22:27 12/07/21 22:30 12/07/21 22:31 Temperature Pulse Rate Respiratory Rate 16 17 18 Blood Pressure 102/49 L 115/63 Pulse Oximetry Oxygen Delivery 12/07/21 23:47 12/07/21 22:32 12/07/21 22:45 Temperature Pulse Rate 102 H 99 Respiratory Rate 18 18 19 Blood Pressure 131/66 Pulse Oximetry 97 Oxygen Delivery 12/08/21 00:46 12/08/21 00:53 12/08/21 01:57 Temperature 97.7 F 97.7 F Pulse Rate 106 H 106 H Respiratory Rate 16 16 Blood Pressure 102/60 102/60 Pulse Oximetry 92 92 95 Oxygen Delivery Room Air 12/08/21 04:40 12/08/21 04:00 12/08/21 08:54 Temperature 97.6 F Pulse Rate 108 H 111 H 98 Respiratory Rate 14 20 Blood Pressure 114/55 L Pulse Oximetry 98 Oxygen Delivery 12/08/21 08:58 12/08/21 09:08 Temperature Pulse Rate 102 H Respiratory Rate 18 Blood Pressure Pulse Oximetry 93 Oxygen Delivery Room Air Intake/Output Intake/Output: Intake &
[2021-12-08 14:41] LABS: Erythrocyte Sedimentation Rate 1 mm/hr (0-20)
[2021-12-08 14:56] LABS: Creatine Kinase 45 U/L (55-170)
[2021-12-08 16:29] LABS: Glucose Point of Care 312 mg/dl (65-105)
[2021-12-08 21:12] LABS: Glucose Point of Care 264 mg/dl (65-105)
[2021-12-08] MEDS: ACETAMINOPHEN 325 MG TABLET 650 MG PO (22:00)
[2021-12-08 22:39] LABS: Lactic Acid Reflex 2.7 mmol/L (0.7-2.0)
[2021-12-09] VITALS (11 sets, daily range): BP systolic 96–106; BP diastolic 46–73; PULSE 95–103; RESP 18; TEMP 36.5–36.6; O2SAT 91–95
[2021-12-09 01:28] LABS: Reflex Lactic Acid Yes or No Add Lactic
[2021-12-09 02:28] LABS: Hematocrit 45.2 % (42.0-52.0); Hemoglobin 15.7 g/dL (14.0-18.0); Mean Corpuscular HGB Conc 34.7 g/dl (32-36); Mean Corpuscular Hemoglobin 28.3 pg (26-34); Mean Corpuscular Volume 81.4 fl (80-100); Mean Platelet Volume 8.5 fl (7.4-10.4); Platelet Count Result 165 k/mm3 (150-375); Red Blood Count 5.55 M/mm3 (4.6-6.20); Red Cell Distribution Width 13.8 % (11.5-14.5); White Blood Count 16.3 K/mm3 (4.5-10.0)
[2021-12-09 02:40] LABS: Lactic Acid Reflex 1.2 mmol/L (0.7-2.0)
[2021-12-09 02:43] LABS: Albumin Level 2.7 g/dL (3.5-5.1); Anion Gap 10 mmol/L (8-16); Blood Urea Nitrogen 106 mg/dL (9-20); Calcium 8.3 mg/dL (8.4-10.2); Carbon Dioxide 18 mmol/L (22-30); Chloride 97 mmol/L (98-107); Glucose 268 mg/dL (65-110); Phosphorus 5.6 mg/dL (2.5-4.5); Sodium 125 mmol/L (137-145)
[2021-12-09 02:46] LABS: Estimated CRCL calculation 14 ml/min; Estimated Glomerular Filt Rate 16
[2021-12-09] MEDS: ONDANSETRON INJ 4 MG/2 ML VIAL IV PUSH ×2 (04:50→08:12)
[2021-12-09] MEDS: METOCLOPRAMIDE HCL INJ 10 MG/2 ML VIAL IV PUSH (06:31)
[2021-12-09 07:55] LABS: Glucose Point of Care 322 mg/dl (65-105)
[2021-12-09] MEDS: HEPARIN SODIUM 5,000 UNITS/ML VIAL 5000 UNITS SUB-Q ×2 (08:02→20:46)
[2021-12-09] MEDS: ROSUVASTATIN 10 MG TABLET 40 MG PO (08:02)
[2021-12-09] MEDS: INSULIN ASPART (*BKC) 100 UNITS/ML SUB-Q ×3 (08:02→16:37)
--- NOTE | 2021-12-09 09:24 | PM.PNNEP ---
Progress Note: A&P Additional Plan 1. the patient has chronic kidney disease. Serology and immuno fix are pending. Renal ultrasound not done yet. Urinalysis shows protein blood bilirubin and white cells. Urine culture shows mixed general fill abhi. Blood cultures are pending. He is on ceftriaxone and vancomycin. This is most likely to diabetes and hypertension. However, his urinalysis has always shown blood in the urine dating back to October. Consider eval or renal biopsy down the line? Because of question of infection will hold off on biopsy for now. Will continue antibiotics and IV fluids and see where this goes. 2. The patient has acute on chronic kidney disease. Renal ultrasound not done yet. urine culture shows mixed general fill abhi. Urine electrolytes are non pre renal. Urine protein shows nephrotic range proteinuria. Blood cultures are pending. He is on ceftriaxone and vancomycin. CPK is normal. The patient has had nausea vomiting and diarrhea. He has not been eating. He is hungry or today though. I suspect he has dehydration. renal ultrasound is still pending so we have not ruled out obstruction. CT did not show obstruction or stone, though. He did have bilateral perinephric stranding. Unclear what the etiology of this is but he is on antibiotics in case it is infectious. thing a negative urine culture is not necessarily factual because he was on antibiotics at the time the culture. Progressive diabetic kidney is a possibility as well but this is somewhat rapid for just simple progression. Will continue IV fluids. Check another creatinine tomorrow 3. The patient has Possible infection. He had cellulitis before and is on antibiotics for that. He has pyuria and perinephric stranding but is urine cultures are negative. However he was on antibiotics at the time of the culture from the prior emergency room stay. 4. Sodium level is lower. It was in the low 130s recently. His renal insufficiency may be contributing to this. He is getting normal saline IV fluids. Will check another sodium later today. He does have high sugars which may contribute to the low sodium as well. 5. the patient has a metabolic acidosis. Anion gap is now 10. Lactic acid is now normal. 6. Phosphorus level is Better. 7. Potassium is normal now. Will DC Mojganma. 8. Diabetes. He is on insulin and sliding scale Per hospitalists. 9. Patient has hypertension. Blood pressure is well controlled. 10. The patient has edema. This is probably from nephrotic syndrome. He is probably still volume depleted. Consider albumin supplementation once we learn a little bit more. Subjective Date/time seen: 12/09/21 09:24 Interval history: patient feels better today. He is less nauseated. He thinks he may even have some breakfast. He has no shortness of breath. Review of Systems Cardiovascular: Cardiovascular: Reports no additional cardiovascular complaints Respiratory: Respiratory: Reports no additional respiratory complaints Gastrointestinal: Gastrointestinal: Reports no additional gastrointestinal complaints Genitourinary: Genitourinary: Reports no additional male genitourinary complaints Exam Narrative: WDWN in NAD skin no rash head ncat lungs clear cor reg no rub abd BS+ nontender and soft ext 1+ bilateral edema below the knees. Objective Data Vital Signs Vital Signs: Vital Signs - 24 hr 12/08/21 14:08 12/08/21 14:19 12/08/21 12:00 Temperature Pulse Rate 93 99 100 Respiratory Rate 18 18 Blood Pressure Pulse Oximetry Oxygen Delivery Oxygen Flow Rate 12/08/21 14:28 12/08/21 16:00 12/08/21 19:51 Temperature 36.3 C L 36.4 C Pulse Rate 97 102 H 100 Respiratory Rate 16 14 Blood Pressure 108/62 116/60 Pulse Oximetry 97 96 Oxygen Delivery Oxygen Flow Rate 12/08/21 20:00 12/08/21 20:00 0
[2021-12-09] MEDS: FLUTICASONE/SALMETEROL 230-21 MCG INHALER 1 PUFF 2 PUFF INHALATION (09:45)
[2021-12-09] MEDS: ALBUTEROL SULFATE NEB 2.5 MG/3 ML INH INHALATION ×2 (09:45→14:23)
[2021-12-09] MEDS: IPRATROPIUM BR 0.02% INH SOLN 0.5 MG/2.5 ML VIAL INHALATION ×2 (09:45→14:23)
[2021-12-09] MEDS: SODIUM BICARBONATE 8.4% 100 MEQ in DEXTROSE 5% 1,000 ML 1,000 ML IV CONT ×2 (11:17→21:27)
--- NOTE | 2021-12-09 11:32 | PM.IMPN ---
Progress Note: A&P Assessment and Plan (1) Acute kidney injury superimposed on chronic kidney disease: Code(s): N17.9 - Acute kidney failure, unspecified; N18.9 - Chronic kidney disease, unspecified Status: Acute Assessment and Plan: Most likely multifactorial including dehydration from diarrhea as well as advancing kidney disease. Nephrology Consul, monitor labs -question need for hemodialysis. -possible progression chronic kidney disease (2) Acute hyperkalemia: Code(s): E87.5 - Hyperkalemia Status: Acute Assessment and Plan: Monitor (3) Acidosis: Code(s): E87.2 - Acidosis Status: Acute Assessment and Plan: Metabolic. Complicated by renal failure. (4) UTI (urinary tract infection): Code(s): N39.0 - Urinary tract infection, site not specified Status: Acute Assessment and Plan: Negative urine cultures. (5) Weakness: Code(s): R53.1 - Weakness Status: Acute Assessment and Plan: Question etiology. Likely related to worsening kidney function and uremia. Being managed per Nephrology (6) Hyponatremia: Code(s): E87.1 - Hypo-osmolality and hyponatremia Status: Acute Assessment and Plan: Likely secondary to the decreased p.o. intake and also renal dysfunction. Plan If cultures negative can Dc antibiotics Subjective Date/time seen: 12/09/21 11:32 Patient still feels pretty weak and lethargic. No specific complaints. Exam Narrative: Constitutional: Patient is well-nourished in no acute distress. Patient is alert and oriented x3 HEENT: Moist mucous membranes. No scleral icterus. No lymphadenopathy. Neck: No carotid bruits noted no JVD noted Lungs: Patient has expiratory wheezes noted to bilateral lung silveira upon auscultation. Accessory muscle use. Cardiovascular: Apical pulse is regular rate and rhythm. S1-S2 noted, no S3 or S4 noted. No gallops, murmurs, or rubs noted. Abdomen: Soft, round, and nontender. No palpable masses. Urostomy bags in place draining a clear yellow urine. Extremities: 3+ edema noted to bilateral lower extremities from gambino to feet. Patient's toes and feet are purple in color. Pedal pulses are palpable at 1+. Neurological: No focal neurological deficits. Cranial nerves II-XII grossly intact. Psychiatric: Cooperative, appropriate mood, and affect Objective Data Vital Signs Vital Signs: Vital Signs - 24 hr 12/08/21 14:08 12/08/21 14:19 12/08/21 12:00 Temperature Pulse Rate 93 99 100 Respiratory Rate 18 18 Blood Pressure Pulse Oximetry Oxygen Delivery Oxygen Flow Rate 12/08/21 14:28 12/08/21 16:00 12/08/21 19:51 Temperature 97.3 F L 97.6 F Pulse Rate 97 102 H 100 Respiratory Rate 16 14 Blood Pressure 108/62 116/60 Pulse Oximetry 97 96 Oxygen Delivery Oxygen Flow Rate 12/08/21 20:00 12/08/21 20:00 12/09/21 00:00 Temperature Pulse Rate 97 100 Respiratory Rate Blood Pressure Pulse Oximetry Oxygen Delivery Nasal Cannula Oxygen Flow Rate 2 12/09/21 04:08 12/09/21 04:00 12/09/21 08:00 Temperature 97.7 F Pulse Rate 99 99 Respiratory Rate 18 Blood Pressure 96/58 L Pulse Oximetry 93 Oxygen Delivery Room Air Oxygen Flow Rate Intake/Output Intake/Output: Intake & Output 12/06/21 12/07/21 12/08/21 12/09/21 23:59 23:59 23:59 23:59 Intake Total 1000 2300 690 Output Total 1375 450 Balance 1000 925 240 Meds/Results Medications: Active Medications Generic Name Dose Route Start Last Admin Trade Name Conorq PRN Reason Stop Dose Admin Acetaminophen 650 mg 12/07/21 23:12 12/08/21 22:00 Acetaminophen 325 Mg Tablet PO 650 mg Q6H PRN Administration Mild Pain (1-3) or Fever Albuterol 2.5 mg 12/08/21 02:00 12/09/21 09:45 Albuterol Sulfate Neb 2.5 Mg/3 Ml Inh INHALATION 2.5 mg Q6HRT DAVID Administration Albuterol 2.5 mg 12/08/21 01:46 Albuterol
[2021-12-09 12:00] LABS: Glucose Point of Care 283 mg/dl (65-105)
[2021-12-09] MEDS: ACETAMINOPHEN 325 MG TABLET 650 MG PO (12:14)
[2021-12-09 16:36] LABS: Glucose Point of Care 299 mg/dl (65-105)
[2021-12-09 21:26] LABS: Glucose Point of Care 371 mg/dl (65-105)
[2021-12-10] VITALS (17 sets, daily range): BP systolic 90–116; BP diastolic 48–60; PULSE 74–112; RESP 12–18; TEMP 36.4–36.6; O2SAT 87–99
[2021-12-10] MEDS: IPRATROPIUM BR 0.02% INH SOLN 0.5 MG/2.5 ML VIAL INHALATION ×3 (02:18→13:30)
[2021-12-10] MEDS: ALBUTEROL SULFATE NEB 2.5 MG/3 ML INH INHALATION ×2 (02:18→08:01)
[2021-12-10] MEDS: ONDANSETRON INJ 4 MG/2 ML VIAL IV PUSH ×3 (02:34→20:35)
[2021-12-10 06:14] LABS: Hematocrit 39.4 % (42.0-52.0); Hemoglobin 14.1 g/dL (14.0-18.0); Mean Corpuscular HGB Conc 35.8 g/dl (32-36); Mean Corpuscular Hemoglobin 29.1 pg (26-34); Mean Corpuscular Volume 81.2 fl (80-100); Mean Platelet Volume 9.6 fl (7.4-10.4); Platelet Count Result 123 k/mm3 (150-375); Red Blood Count 4.85 M/mm3 (4.6-6.20); Red Cell Distribution Width 13.6 % (11.5-14.5); White Blood Count 14.1 K/mm3 (4.5-10.0)
[2021-12-10 06:30] LABS: Albumin Level 2.3 g/dL (3.5-5.1); Anion Gap 9 mmol/L (8-16); Calcium 7.2 mg/dL (8.4-10.2); Carbon Dioxide 26 mmol/L (22-30); Chloride 89 mmol/L (98-107); Glucose 379 mg/dL (65-110); Phosphorus 4.6 mg/dL (2.5-4.5); Potassium 3.9 mmol/L (3.4-5.0); Sodium 124 mmol/L (137-145)
[2021-12-10 07:50] LABS: Glucose Point of Care 402 mg/dl (65-105)
[2021-12-10] MEDS: FLUTICASONE/SALMETEROL 230-21 MCG INHALER 1 PUFF 2 PUFF INHALATION (08:04)
[2021-12-10 08:05] LABS: Blood Urea Nitrogen 128 mg/dL (9-20); Estimated CRCL calculation 14 ml/min; Estimated Glomerular Filt Rate 15
[2021-12-10] MEDS: INSULIN GLARGINE (*BKC) 100 UNITS/ML 10 UNITS SUB-Q (08:35)
[2021-12-10] MEDS: INSULIN ASPART (*BKC) 100 UNITS/ML 10 UNITS SUB-Q (08:35)
[2021-12-10] MEDS: FUROSEMIDE 40 MG TABLET PO ×2 (08:36→17:13)
[2021-12-10] MEDS: ROSUVASTATIN 10 MG TABLET 40 MG PO (08:36)
[2021-12-10] MEDS: HEPARIN SODIUM 5,000 UNITS/ML VIAL 5000 UNITS SUB-Q ×2 (08:36→20:35)
[2021-12-10] MEDS: SODIUM BICARBONATE 8.4% 100 MEQ in DEXTROSE 5% 1,000 ML 1,000 ML IV CONT (09:19)
--- NOTE | 2021-12-10 09:46 | PM.PNNEP ---
Progress Note: A&P Additional Plan 1. the patient has chronic kidney disease. Serology and immuno fix are pending. Renal ultrasound not done yet. Urinalysis shows protein blood bilirubin and white cells. Urine culture shows mixed general fill abhi. Blood cultures are pending. He is on ceftriaxone and vancomycin. This is most likely to diabetes and hypertension. However, his urinalysis has always shown blood in the urine dating back to October. Consider eval or renal biopsy down the line? for now will continue to treat infection. Will repeat the urinalysis to be sure it is clearing up. 2. The patient has acute on chronic kidney disease. Renal ultrasound not done yet. urine culture shows mixed general fill ahbi. Urine electrolytes are non pre renal. Urine protein shows nephrotic range proteinuria. Blood cultures are No growth to date. Renal ultrasound shows no hydro. Normal size kidneys. He is on ceftriaxone and vancomycin. CPK is normal. The patient has had nausea vomiting and diarrhea. I suspect he has dehydration. CT did not show obstruction or stone, though. He did have bilateral perinephric stranding. He is on antibiotics in case infection is playing a role. Progressive diabetic kidney is a possibility as well but this is somewhat rapid for just simple progression. Will continue IV fluids. Check a urinalysis today to be sure infection is clearing. His creatinine is a little higher. This may be from the diuretics. Will add albumin to help intravascular volume. 3. The patient has possible infection. He had cellulitis before and is on antibiotics for that. He has pyuria and perinephric stranding but is urine cultures are negative. However he was on antibiotics at the time of the culture from the prior emergency room stay. 4. Sodium level is lower. It was in the low 130s recently. His renal insufficiency may be contributing to this. He is getting normal saline IV fluids. Will check another sodium later today. He does have high sugars which may contribute to the low sodium as well. 5. the patient has a metabolic acidosis. Anion gap is now 10. Lactic acid is now normal. 6. Phosphorus level is better. 7. Potassium is normal now. He is off Lokelma. 8. Diabetes. He is on insulin and sliding scale Per hospitalists. 9. Patient has hypertension. Blood pressure is well controlled. actually it is a little bit soft. 10. The patient has edema. This is probably from nephrotic syndrome. He is probably still volume depleted. At albumin Subjective Date/time seen: 12/10/21 09:46 Interval history: patient feels better today. He ate some yesterday. He thinks he may even have some breakfast. He has no shortness of breath. Exam Narrative: WDWN in NAD skin no rash or subcu nodules head ncat lungs clear bilateral cor reg no rub abd BS+ nontender and soft ext 1+ bilateral edema below the knees. He has no erythema anymore. Objective Data Vital Signs Vital Signs: Vital Signs - 24 hr 12/09/21 12:00 12/09/21 14:26 12/09/21 14:26 Temperature Pulse Rate 95 97 Respiratory Rate 18 Blood Pressure Pulse Oximetry 94 Oxygen Delivery Room Air Oxygen Flow Rate 12/09/21 14:35 12/09/21 14:26 12/09/21 16:00 Temperature 36.6 C Pulse Rate 96 98 103 H Respiratory Rate 18 18 Blood Pressure 106/73 Pulse Oximetry 93 Oxygen Delivery Oxygen Flow Rate 12/09/21 19:19 12/09/21 20:22 12/09/21 20:00 Temperature 36.6 C Pulse Rate 100 100 Respiratory Rate 18 18 Blood Pressure 98/46 L Pulse Oximetry 91 95 95 Oxygen Delivery Room Air Room Air Oxygen Flow Rate 12/09/21 20:00 12/10/21 00:00 12/10/21 02:21 Temperature Pulse Rate 103 H 112 H 110 H Respiratory Rate 18 Blood Pressure Pulse Oximetry Oxygen Delivery Oxygen Flow Rate 12/10/21 02:31 12/10/21
[2021-12-10] MEDS: SODIUM CHLORIDE 0.9% IV 1,000 ML 75 ML IV CONT (10:24)
[2021-12-10] MEDS: TIMOLOL MALEATE 0.5% OP SOLN 5 ML BOTTLE 1 DROP LEFT EYE ×2 (10:55→17:13)
[2021-12-10 11:47] LABS: Appearance Urine Clear (Clear); Bilirubin Urine Negative (Negative); Blood Urine 2+ (Negative); Color Urine Yellow (Yellow); Glucose Urine UA 1+ mg/dL (Negative); Ketones Urine Negative (Negative); Leukocyte Esterase Ur 1+ LEU/UL (NEGATIVE); Nitrate Urine Positive (Negative); Protein Urine 1+ mg/dL (Negative); Specific Grav Ur 1.015 (1.001-1.035); Urobilinogen Urine 0.2 mg/dL (<2.0); pH Urine 8.5 (5.0-9.0)
[2021-12-10] MEDS: ALBUMIN HUMAN 25% 25 GM/100 ML 100 ML IVPB ×3 (11:52→23:21)
[2021-12-10 11:57] LABS: Amorphous Sediment Urine Few; Bacteria Urine 1+ /hpf; Mucus Urine Moderate /lpf; Squamous Epithelial Cell Urine Rare /hpf (Few); WBC Urine 21-30 /hpf (0-3)
[2021-12-10] MEDS: ACETAMINOPHEN 325 MG TABLET 650 MG PO ×2 (11:58→20:38)
[2021-12-10 11:59] LABS: Add Urine Microscopic? YES; IFOB Positive Control Positive; Immunochemical Fecal Occult Bl Positive (N)
[2021-12-10 12:00] LABS: Glucose Point of Care 313 mg/dl (65-105)
[2021-12-10] MEDS: INSULIN ASPART (*BKC) 100 UNITS/ML SUB-Q (12:05)
[2021-12-10 13:29] LABS: Alveolar/Arterial O2 Gradient 635.2 mmHg; Base Excess ABG -14.3 mEq/l (+/-2.0); Fractional Inspired Oxygen 100 %; HCO3 ABG 13.9 mEq/l (22.0-26.0); PCO2 ABG 42.3 mmHg (35.0-45.0); PO2 FiO2 Ratio Arterial Blood 0.35 %; Total Hemoglobin 8.7 g/dL (12.0-18.0)
[2021-12-10] MEDS: ALBUTEROL SULFATE NEB 2.5 MG/0.5 ML INH (13:30)
[2021-12-10 13:33] LABS: Oxygen Saturation ABG 51.7 % (95.0-100.0); Oxyhemoglobin 64.9 % THb (90.0-100.0); PO2 ABG 35.5 mmHg (80.0-100.0); pH ABG 7.134 (7.350-7.450)
--- NOTE | 2021-12-10 15:12 | PM.IMPN ---
Progress Note: A&P Assessment and Plan (1) Acute kidney injury superimposed on chronic kidney disease: Code(s): N17.9 - Acute kidney failure, unspecified; N18.9 - Chronic kidney disease, unspecified Status: Acute Assessment and Plan: Most likely multifactorial including dehydration from diarrhea as well as advancing kidney disease. Nephrology Consul, monitor labs -question need for hemodialysis. -possible progression chronic kidney disease (2) Acute hyperkalemia: Code(s): E87.5 - Hyperkalemia Status: Acute Assessment and Plan: Monitor (3) Acidosis: Code(s): E87.2 - Acidosis Status: Acute Assessment and Plan: Metabolic. Complicated by renal failure. (4) UTI (urinary tract infection): Code(s): N39.0 - Urinary tract infection, site not specified Status: Acute Assessment and Plan: Negative urine cultures. (5) Weakness: Code(s): R53.1 - Weakness Status: Acute Assessment and Plan: Question etiology. Likely related to worsening kidney function and uremia. Being managed per Nephrology (6) Hyponatremia: Code(s): E87.1 - Hypo-osmolality and hyponatremia Status: Acute Assessment and Plan: Likely secondary to the decreased p.o. intake and also renal dysfunction. Plan If cultures negative can Dc antibiotics Additional Plan 12/10/2021 interval history patient still complains of being tired and fatigue does not feel like participating in physical therapy and has a poor appetite, patient is a chronic kidney disease seen by Nephrology suspect secondary to diabetes and hypertension kidney ultrasound is normal, blood in urine culture no growth so far patient is being treated ceftriaxone and vancomycin will continue 1 more day if there is no growth will stop antibiotic, will continue IV fluid and monitor kidney function, will PT OT evaluate the patient, patient is present in the room and answered all questions Subjective Date/time seen: 12/10/21 15:12 12/10/2021 interval history patient still complains of being tired and fatigue does not feel like participating in physical therapy and has a poor appetite, patient is a chronic kidney disease seen by Nephrology suspect secondary to diabetes and hypertension kidney ultrasound is normal, blood in urine culture no growth so far patient is being treated ceftriaxone and vancomycin will continue 1 more day if there is no growth will stop antibiotic, will continue IV fluid and monitor kidney function, will PT OT evaluate the patient, patient is present in the room and answered all questions. Exam Narrative: Patient is comfortable, NAD HEENT: eyes are clear and none icteric LUNGS: normal respiratory effort ABD: not distended Lower extremities: no edema SKIN: nonjaundiced Neuro: grossly intact. Objective Data Vital Signs Vital Signs: Vital Signs - 24 hr 12/09/21 16:00 12/09/21 19:19 12/09/21 20:22 Temperature 97.8 F Pulse Rate 103 H 100 Respiratory Rate 18 Blood Pressure 98/46 L Pulse Oximetry 91 95 Oxygen Delivery Room Air Oxygen Flow Rate 12/09/21 20:00 12/09/21 20:00 12/10/21 00:00 Temperature Pulse Rate 100 103 H 112 H Respiratory Rate 18 Blood Pressure Pulse Oximetry 95 Oxygen Delivery Room Air Oxygen Flow Rate 12/10/21 02:21 12/10/21 02:31 12/10/21 03:11 Temperature 97.9 F Pulse Rate 110 H 103 H 103 H Respiratory Rate 18 18 18 Blood Pressure 90/48 L Pulse Oximetry 92 Oxygen Delivery Oxygen Flow Rate 12/10/21 04:00 12/10/21 08:01 12/10/21 08:07 Temperature Pulse Rate 112 H 89 91 Respiratory Rate 12 12 Blood Pressure Pulse Oximetry Oxygen Delivery Oxygen Flow Rate 12/10/21 08:40 12/10/21 08:49 12/10/21 08:43 Temperature Pulse Rate Respiratory Rate Blood Pressure Pulse Oximetry 87 L Oxygen Delivery Nasal Cannula Nasal Cannula Room Air Oxygen F
[2021-12-10] MEDS: MENTHOL 10% / METHYL SALICYLATE 15% 57 GM TUBE 1 APPLIC TOPICAL (15:19)
[2021-12-10 16:30] LABS: Glucose Point of Care 97 mg/dl (65-105)
[2021-12-10 20:54] LABS: Glucose Point of Care 170 mg/dl (65-105)
[2021-12-11] VITALS (51 sets, daily range): BP systolic 48–131; BP diastolic 21–82; PULSE 80–115; RESP 16–23; TEMP 36.1–36.8; O2SAT 90–100
[2021-12-11] MEDS: ONDANSETRON INJ 4 MG/2 ML VIAL IV PUSH (01:17)
[2021-12-11] MEDS: IPRATROPIUM BR 0.02% INH SOLN 0.5 MG/2.5 ML VIAL INHALATION ×4 (02:33→19:55)
[2021-12-11] MEDS: ALBUTEROL SULFATE NEB 2.5 MG/3 ML INH INHALATION ×4 (02:33→19:55)
[2021-12-11] MEDS: SODIUM CHLORIDE 0.9% IV 1,000 ML 75 ML IV CONT ×2 (04:42→16:42)
[2021-12-11] MEDS: ALBUMIN HUMAN 25% 25 GM/100 ML 100 ML IVPB ×3 (04:43→19:00)
[2021-12-11 05:19] LABS: Kappa\\Lambda Light Chains 0.84 (0.26-1.65); Lambda Light Chain 26.5 mg/L (5.7-26.3)
[2021-12-11] MEDS: ACETAMINOPHEN 325 MG TABLET 650 MG PO (05:52)
[2021-12-11 06:17] LABS: Albumin Level 3.3 g/dL (3.5-5.1); Anion Gap 10 mmol/L (8-16); Calcium 7.3 mg/dL (8.4-10.2); Carbon Dioxide 29 mmol/L (22-30); Chloride 91 mmol/L (98-107); Glucose 196 mg/dL (65-110); Phosphorus 3.6 mg/dL (2.5-4.5); Potassium 3.3 mmol/L (3.4-5.0); Sodium 130 mmol/L (137-145)
[2021-12-11 06:47] LABS: Blood Urea Nitrogen 135 mg/dL (9-20); Estimated CRCL calculation 13 ml/min; Estimated Glomerular Filt Rate 15
[2021-12-11 08:01] LABS: Glucose Point of Care 189 mg/dl (65-105)
[2021-12-11] MEDS: ROSUVASTATIN 10 MG TABLET 40 MG PO (08:19)
[2021-12-11] MEDS: TIMOLOL MALEATE 0.5% OP SOLN 5 ML BOTTLE 1 DROP LEFT EYE (08:19)
[2021-12-11 08:34] LABS: Basophils Percent Auto 0.1 % (0.2-1.2); Eosinophils Absolute Auto 0.1 K/mm3 (0-0.3); Eosinophils Percent Auto 0.6 % (0-4.4); Hematocrit 28.3 % (42.0-52.0); Hemoglobin 9.8 g/dL (14.0-18.0); Immature Granulocyte Percent A 0.8 % (0-0.5); Immature Platelet Fraction Pct 2.9 % (0.9-11.2); Lymphocytes Absolute Auto 0.93 K/mm3 (0.9-3.2); Lymphocytes Percent Auto 7.4 % (18.3-44.2); Mean Corpuscular HGB Conc 34.6 g/dl (32-36); Mean Corpuscular Hemoglobin 28.9 pg (26-34); Mean Corpuscular Volume 83.5 fl (80-100); Mean Platelet Volume 9.2 fl (7.4-10.4); Monocytes Absolute Auto 0.8 K/mm3 (0.1-0.6); Monocytes Percent Auto 6.4 % (2.6-8.5); Neutrophils Absolute Auto 10.7 K/mm3 (1.3-6.7); Neutrophils Percent Auto 84.7 % (45.5-73.1); Platelet Count Result 121 k/mm3 (150-375); Red Blood Count 3.39 M/mm3 (4.6-6.20); Red Cell Distribution Width 13.6 % (11.5-14.5); White Blood Count 12.7 K/mm3 (4.5-10.0)
[2021-12-11] MEDS: SODIUM CHLORIDE 0.9% IV 500 ML IV CONT (08:43)
[2021-12-11] MEDS: SODIUM CHLORIDE 0.9% IV 500 ML 999 ML IV CONT (09:58)
[2021-12-11] MEDS: FLUTICASONE/SALMETEROL 230-21 MCG INHALER 1 PUFF 2 PUFF INHALATION ×2 (10:08→19:55)
--- NOTE | 2021-12-11 11:27 | PC.NURSE ---
While doing morning med pass I checked patients BP and it was 67/33. Patient reported feeling weak and tired. Dr Justin called and orders were received. Bolus given per orders. Patient received 2 500ml bolus and pressure came up to 94/56. Will continue to monitor patient.
[2021-12-11 11:41] LABS: Glucose Point of Care 204 mg/dl (65-105)
--- NOTE | 2021-12-11 12:03 | PM.PNNEP ---
Progress Note: A&P Additional Plan 1. the patient has chronic kidney disease. Serology and immuno fix are pending. Renal ultrasound not done yet. Urinalysis shows protein blood bilirubin and white cells. Urine culture shows mixed general fill abhi. Blood cultures are pending. He is on ceftriaxone and vancomycin. This is most likely to diabetes and hypertension. However, his urinalysis has always shown blood in the urine dating back to October. Consider eval or renal biopsy down the line? for now will continue to treat infection. his repeat urinalysis still shows blood and pus. He has been on antibiotics for a while. He does not have any symptoms of UTI. Perhaps the red cells and the white cells are inflammatory rather than infectious. His creatinine keeps going up. I think we should do a kidney biopsy. I will talk with the patient more. 2. The patient has acute on chronic kidney disease. Renal ultrasound not done yet. urine culture shows mixed general fill abhi. Urine electrolytes are non pre renal. Urine protein shows nephrotic range proteinuria. Blood cultures are No growth to date. Renal ultrasound shows no hydro. Normal size kidneys. He is on ceftriaxone and vancomycin. CPK is normal. The patient has had nausea vomiting and diarrhea. I suspect he has dehydration. CT did not show obstruction or stone, though. He did have bilateral perinephric stranding. He is on antibiotics in case infection is playing a role. Progressive diabetic kidney is a possibility as well but this is somewhat rapid for just simple progression. Will continue IV fluids. See discussion above about urinalysis. 3. The patient has possible infection. He had cellulitis before and is on antibiotics for that. He has pyuria and perinephric stranding but is urine cultures are negative. However he was on antibiotics at the time of the culture from the prior emergency room stay. 4. Sodium level is better. He is on fluid restriction, furosemide, and saline. 5. Metabolic acidosis is resolved. 6. Phosphorus level is better. 7. Hyperkalemia is resolved. 8. Diabetes. He is on insulin and sliding scale Per hospitalists. 9. Patient has hypertension. Blood pressure is well controlled. actually it is a little bit soft. 10. The patient has edema. This is probably from nephrotic syndrome. He is probably still volume depleted. He is getting albumin plus Lasix. Subjective Date/time seen: 12/11/21 12:03 Interval history: patient feels better today. No chest pain or shortness of breath. Exam Narrative: WDWN in NAD skin no rash or subcu nodules head ncat lungs clear to auscultation cor reg no rub abd BS+ nontender and soft ext 1+ bilateral edema below the knees. He has no erythema anymore. Objective Data Vital Signs Vital Signs: Vital Signs - 24 hr 12/10/21 13:31 12/10/21 13:39 12/10/21 14:12 Temperature 36.4 C L Pulse Rate 74 82 98 Respiratory Rate 12 18 Blood Pressure 116/60 Pulse Oximetry 99 Oxygen Delivery Oxygen Flow Rate 12/10/21 16:00 12/10/21 19:59 12/10/21 20:00 Temperature 36.4 C Pulse Rate 97 91 93 Respiratory Rate 16 Blood Pressure 97/48 L Pulse Oximetry 97 Oxygen Delivery Oxygen Flow Rate 12/10/21 20:00 12/11/21 00:27 12/11/21 02:36 Temperature 36.5 C Pulse Rate 93 94 80 Respiratory Rate 16 16 16 Blood Pressure 110/70 Pulse Oximetry 97 92 Oxygen Delivery Nasal Cannula Oxygen Flow Rate 2 12/10/21 21:08 12/11/21 00:00 12/11/21 02:50 Temperature Pulse Rate 92 82 Respiratory Rate 16 Blood Pressure Pulse Oximetry 94 Oxygen Delivery Nasal Cannula Oxygen Flow Rate 2 12/11/21 04:26 12/11/21 04:00 12/11/21 08:03 Temperature 36.4 C Pulse Rate 93 89 94 Respiratory Rate 16 Blood Pressure 90/62 L Pulse Oximetry 90 Oxygen Delivery Oxygen Flow R
--- NOTE | 2021-12-11 12:19 | WPDGICN ---
Assessment and Plan Assessment and plan (1) Gastrointestinal bleeding: Code(s): K92.2 - Gastrointestinal hemorrhage, unspecified Status: Acute Assessment and Plan: he began seen blood in his stools yesterday. His states that it was dark red primarily. His hemoglobin dropped by over 4 g. he will have a tag red blood cell scan shortly. I told that depending on the results he may need EGD and/or colonoscopy tomorrow. Hopefully this can will localize source of bleeding. If not we will perform both upper and lower gastrointestinal endoscopy. I discussed the procedures with him and his and also discussed the prep and risks. (2) Acute anemia: Code(s): D64.9 - Anemia, unspecified Status: Acute Assessment and Plan: He has never been anemic before. As noted, his hemoglobin was 14.1 yesterday and had been in normal range recently. He does not recall ever being treated for anemia in the past. (3) Acute kidney injury superimposed on chronic kidney disease: Code(s): N17.9 - Acute kidney failure, unspecified; N18.9 - Chronic kidney disease, unspecified Status: Acute Assessment and Plan: His BUN was 62 weeks ago and now is over 130. Likewise creatinine has increased from 1.5 2 weeks ago to 4.0 today he is being followed by Nephrology for acute chronic kidney failure (4) Bullous pemphigoid: Code(s): L12.0 - Bullous pemphigoid Status: Acute Assessment and Plan: he has had this condition for a long time. He states that he had been on prednisone, steroids for long time which is why he has chronic ecchymoses of his skin. He had finally got off the prednisone but recently did take a short course for a flare up and because of his COPD. (5) Ecchymosis: Code(s): R58 - Hemorrhage, not elsewhere classified Status: Acute Assessment and Plan: severe ecchymoses of the upper extremities which are not new and he believes secondary to long-term steroid therapy. He has not had any active bleeding from his extremities. GI Consult Note Consult date/time: 12/11/21 12:19 HPI: Raimundo Canales is a 76 year old male with a history of DM, COPD, pulmonary HTN, bullous pemphigoid for evaluation of fatigue and weakness over the past several weeks.? Patient states that he has been feeling generally unwell and fatigued.? He has been evaluated by his primary care provider without clear etiology, although he was treated for UTI about a month ago. Of note, urine culture did not grow any bacteria. Does note that he feels short of breath and nauseated but denies vomiting.?He was in the emergency room a little over a week ago and found to have cellulitis. He was sent home on antibiotics. A few days ago he came back because he was feeling so weak. On admission his hemoglobin was normal. Today it is 9.8, down from 14 yesterday. He has been seen dark red blood in his stools beginning early yesterday. He does not have any specific abdominal pain. His added that his appetite has been poor lately. He had been on anti-inflammatory medications but not in the last few weeks. He also had that prednisone for many years for his skin condition. He had been off it except for short course that he took recently. He has never had endoscopy or colonoscopy Review of Systems Review of Systems: All systems reviewed & are unremarkable except as noted in HPI and below PMFSH Past Medical History Medical History BMI 26.0-26.9,adult BMI 27.0-27.9,adult Bullous pemphigoid Chronic kidney disease COPD (chronic obstructive pulmonary disease) Hyperkalemia Hyperlipidemia associated with type 2 diabetes mellitus Hypertension Malignant neoplasm of bladder, unspecified On home oxygen therapy Pneumonia and influenza Pulmonary artery hypertension Rash Tobacco abuse Surgical History Surgical History (Reviewed 12/11/21 @ 12:39 by Sheryl
--- NOTE | 2021-12-11 13:00 | PM.EVENT ---
Event Note Event Note Event Note: Late entry. I went back to talk with patient about the renal biopsy at around 1pm and he is down for a bleeding scan to investigate a large drop in hemoglobin. discussed with at length.
--- NOTE | 2021-12-11 15:23 | PCDIET ---
Patients BP is 64/[address] Justin notified and came to bedside to assess patient. He is talking with shells inspector at this time. Patient HR 112 , temp 97.5, resp 20. Patient alert and oriented complains of weakness and fatigue. Awaiting orders from physician.
--- NOTE | 2021-12-11 15:35 | PM.IMPN ---
Progress Note: A&P Assessment and Plan (1) Acute kidney injury superimposed on chronic kidney disease: Code(s): N17.9 - Acute kidney failure, unspecified; N18.9 - Chronic kidney disease, unspecified Status: Acute Assessment and Plan: Most likely multifactorial including dehydration from diarrhea as well as advancing kidney disease. Nephrology Consul, monitor labs -question need for hemodialysis. -possible progression chronic kidney disease (2) Acute hyperkalemia: Code(s): E87.5 - Hyperkalemia Status: Acute Assessment and Plan: Monitor (3) Acidosis: Code(s): E87.2 - Acidosis Status: Acute Assessment and Plan: Metabolic. Complicated by renal failure. (4) UTI (urinary tract infection): Code(s): N39.0 - Urinary tract infection, site not specified Status: Acute Assessment and Plan: Negative urine cultures. (5) Weakness: Code(s): R53.1 - Weakness Status: Acute Assessment and Plan: Question etiology. Likely related to worsening kidney function and uremia. Being managed per Nephrology (6) Hyponatremia: Code(s): E87.1 - Hypo-osmolality and hyponatremia Status: Acute Assessment and Plan: Likely secondary to the decreased p.o. intake and also renal dysfunction. Plan If cultures negative can Dc antibiotics Additional Plan 12/11/2021 interval history patient still complains of being tired and fatigue does not feel like participating in physical therapy and has a poor appetite, patient is a chronic kidney disease seen by Nephrology suspect secondary to diabetes and hypertension kidney ultrasound is normal, blood in urine culture no growth so far patient is being treated ceftriaxone and vancomycin will continue 1 more day if there is no growth will stop antibiotic, will continue IV fluid and monitor kidney function, will PT OT evaluate the patient, patient is present in the room and answered all questions. This morning patient was more somnolent and his BP was soft, his stool was black, no esperanza bleeding, patient was given NS 500 bolus which did improve his BP, gave another 500cc bolus, his HGB dropped to 9.8 today from 14.1 on 12/10, RBC tag scan showed Active gastrointestinal bleed which appears to originate in the proximal duodenum in the right upper quadrant which suggests possibility of peptic ulcer disease. Consider endoscopy for further evaluation. D/W Dr. Stark, will give 2 units of PRBC, 1 L of NS bolus, PPI drip, and transferred to ICU, will Check hgb q4 hours, Called Dr. Odonnell, no answer and sent a text with information, will monitor, will Keep patient NPO. Subjective Date/time seen: 12/11/21 15:35 12/11/2021 interval history patient still complains of being tired and fatigue does not feel like participating in physical therapy and has a poor appetite, patient is a chronic kidney disease seen by Nephrology suspect secondary to diabetes and hypertension kidney ultrasound is normal, blood in urine culture no growth so far patient is being treated ceftriaxone and vancomycin will continue 1 more day if there is no growth will stop antibiotic, will continue IV fluid and monitor kidney function, will PT OT evaluate the patient, patient is present in the room and answered all questions This morning patient was more somnolent and his BP was soft, his stool was black, no esperanza bleeding, patient was given NS 500 bolus which did improve his BP, gave another 500cc bolus, his HGB dropped to 9.8 today from 14.1 on 12/10, RBC tag scan showed Active gastrointestinal bleed which appears to originate in the proximal duodenum in the right upper quadrant which suggests possibility of peptic ulcer disease. Consider endoscopy for further evaluation. D/W Dr. Stark, will give 2 units of PRBC, 1 L of NS bolus, PPI drip, and transferred to ICU, will Check hgb q4 hours, Called Dr. Odonnell, no answer and sent a text with information, theo joyce
--- NOTE | 2021-12-11 15:56 | PC.NURSE ---
This patient, Raimundo Canales, was transferred to [ICU 11 ] on 12/11/21 at 1556. Personal belongings sent with patient. Report given to [Martinez ADAN ]. Appropriate documentation sent with patient.
--- NOTE | 2021-12-11 16:04 | PC.NURSE ---
This patient, Raimundo Canales, was received from [facility] on 12/11/21 at 1604. Patient/family oriented to unit policies and routines.
[2021-12-11] MEDS: SODIUM CHLORIDE 0.9% IV 1,000 ML 999 ML IV CONT ×2 (16:06→17:15)
[2021-12-11 16:53] LABS: INR 1.9; Prothrombin Time 20.8 Seconds (11.1-14.7)
[2021-12-11 17:00] LABS: Hemoglobin 5.8 g/dL (14.0-18.0)
[2021-12-11 17:01] LABS: Hematocrit 17.6 % (42.0-52.0)
[2021-12-11] MEDS: NOREPINEPHRINE 8 MG/D5W 250 ML 8 MG/250 ML BAG 9.38 MG IV CONT (17:14)
[2021-12-11] MEDS: SODIUM CHLORIDE 0.9% IV 250 ML 30 ML IV CONT (17:14)
--- NOTE | 2021-12-11 18:11 | WPDANESEPP ---
Anes - Eval Pre Procedure Procedure: Operation Date: 12/11/21 18:00 Proposed Procedures p Esophagogastroduodenoscopy - Vitor Odonnell MD Date/Time: 12/11/21 18:11 Surgeon: dalia Pre Op Diagnosis: Hyperkalemia Patient Data Age: 76 Gender: M Height: 1.7 m Weight: 73.2 kg Last Vital Signs Temp 36.6 C 12/11/21 18:07 Pulse 101 H 12/11/21 18:07 Resp 20 12/11/21 18:07 BP 84/55 L 12/11/21 18:07 Pulse Ox 95 12/11/21 18:07 O2 Del Method Nasal Cannula 12/11/21 10:06 O2 Flow Rate 1 12/11/21 10:06 Allergies Allergy/AdvReac Type Severity Reaction Status Date / Time No Known Allergies Allergy Unknown Verified 12/07/21 19:52 Home Medications Medication Instructions Recorded Confirmed Type niacinamide 500 mg tablet 500 mg PO BID 06/30/21 12/08/21 History insulin glargine 100 unit/mL (3 20 unit (0.2 mL) subcut QPM #15 mL 11/04/21 12/08/21 Rx mL) subcutaneous pen (Basaglar KwikPen U-100 Insulin) cephalexin 500 mg capsule 500 mg PO Q6H #28 caps 12/01/21 12/08/21 Rx doxycycline hyclate 100 mg capsule 1 cap PO BID 12/07/21 12/08/21 History prednisone 20 mg tablet 1.5 tablet PO DAILY 12/07/21 12/08/21 History rosuvastatin 40 mg tablet 1 tablet PO DAILY 12/07/21 12/08/21 History fluticasone furoate 200 1 inh inhalation DAILY 12/08/21 12/08/21 History mcg-vilanterol 25 mcg/dose inhalation powder (Breo Ellipta) metformin 1,000 mg tablet 1 tablet PO BID 12/08/21 12/08/21 History timolol maleate 0.5 % eye drops 1 drp LEFT EYE BID 12/10/21 12/10/21 History Laboratory Tests 12/08/21 12/08/21 12/10/21 22:21 22:21 20:37 WBC RBC Hgb Hct MCV MCH MCHC RDW Plt Count MPV Immature Gran % (Auto) Neut % (Auto) Lymph % (Auto) [place] % (Auto) Eos % (Auto) Baso % (Auto) Lymph # (Auto) [place] # (Auto) Eos # (Auto) Baso # (Auto) Abs Immat Gran (auto) Absolute Neuts (auto) Absolute Nucleated RBC Nucleated RBC % % Immature Plt Fraction PT INR Sodium Potassium Chloride Carbon Dioxide Anion Gap BUN Creatinine Estim Creat Clear Calc Estimated GFR Glucose POC Capillary Glucose 170 mg/dl H mg/dl (65-105) Calcium Phosphorus Albumin KENDAL Screen Negative (Negative) [place]/Lambda Ratio 0.84 (0.26-1.65) Free [place] Light Chains 22.2 mg/L H mg/L (3.3-19.4) Free Lambda Light Chain 26.5 mg/L H mg/L (5.7-26.3) Blood Type Antibody Screen Crossmatch 12/11/21 12/11/21 12/11/21 05:41 07:54 08:11 WBC RBC Hgb Hct MCV MCH MCHC RDW Plt Count MPV Immature Gran % (Auto) Neut % (Auto) Lymph % (Auto) [place] % (Auto) Eos % (Auto) Baso % (Auto) Lymph # (Auto) [place] # (Auto) Eos # (Auto) Baso # (Auto) Abs Immat Gran (auto) Absolute Neuts (auto) Absolute Nucleated RBC Nucleated RBC % % Immature Plt Fraction PT INR Sodium 130 mmol/L L mmol/L (137-145) Potassium 3.3 mmol/L L mmol/L (3.4-5.0) Chloride 91 mmol/L L mmol/L (98-107) Carbon Dioxide 29 mmol/L mmol/L (22-30) Anion Gap 10 mmol/L mmol/L (8-16) BUN 135 mg/dL H mg/dL (9-20) Creatinine 4.00
--- NOTE | 2021-12-11 18:15 | P.PCNBED_ITS ---
Procedures Central Line Placement Right Femoral: Central Line Date: 12/11/21 Central Line Time: 18:15 Discussed w/ the patient/family/POA,the placement of a central venous catheter, including its clinical necessity/indication & associated potential risks, benifits and alternatives.: Yes The patient/family/POA understand(s) and acknowledge(s) the need to proceed with central venous catheter insertion as an important element of the patient's clinical management.: Yes Consent: I have discussed with the patient and/or surrogate, the non-emergent placement of a central venous catheter, including its clinical necessity/indication and associated potential risks and complications. The patient and/or surrogate understand(s) and acknowledge(s) the need to proceed with central venous catheter insertion as an important element of the patient's clinical management. Time Out Performed: Yes Patient Position: supine Patient placed on monitor/pulse ox: Yes Provider Prep: mask, sterile gown, sterile gloves, Max. sterile barrier precautions and hand hygiene with conventional soap/water or alcohol based hand rub Central line prep: 2% Chlorhexidine scrub Local anesthesia used: lidocaine 1% Amount of anesthesia used (ml): 5 Sterile US Technique with sterile gel/sterile probe covers: Yes Central line lumen inserted: triple [place]: 7 Length (cm): 20 Post Procedure: sutured in place, good blood return, all ports aspirated, flushed, capped, transparent dressing, hemostatic product, antimicrobial product and aseptic technique maintained throughout procedure Post procedure x-ray: other (n/a with femoral placement) Patient tolerated procedure: well Complications: none Additional comments: Dr. Victor Manuel Bernard, attending ED physician, notified of procedure and was available if needed.
[2021-12-11 18:27] LABS: Glucose Point of Care 248 mg/dl (65-105)
[2021-12-11] MEDS: LACTATED RINGERS 1,000 ML 150 ML IV CONT (18:46)
[2021-12-11] MEDS: EPINEPHrine INJ 1 MG/10 ML SYRINGE XX (19:03)
--- NOTE | 2021-12-11 19:12 | WPDANESEPPF ---
Anes - Initial Pre Proc Eval Procedure: Operation Date: 12/11/21 18:00 Proposed Procedures p Esophagogastroduodenoscopy - Vitor Odonnell MD Date/Time: 12/11/21 19:12 Surgeon: Jeimy Lugo MD Pre Op Diagnosis: Hyperkalemia Patient Data Age: 76 Gender: M Height: 1.7 m Weight: 73.2 kg Last Vital Signs Temp 36.6 C 12/11/21 18:07 Pulse 93 12/11/21 19:02 Resp 20 12/11/21 18:07 BP 48/21 L 12/11/21 19:02 Pulse Ox 95 12/11/21 18:07 O2 Del Method Nasal Cannula 12/11/21 10:06 O2 Flow Rate 1 12/11/21 10:06 Allergies Allergy/AdvReac Type Severity Reaction Status Date / Time No Known Allergies Allergy Unknown Verified 12/07/21 19:52 Home Medications Medication Instructions Recorded Confirmed Type niacinamide 500 mg tablet 500 mg PO BID 06/30/21 12/08/21 History insulin glargine 100 unit/mL (3 20 unit (0.2 mL) subcut QPM #15 mL 11/04/21 12/08/21 Rx mL) subcutaneous pen (Basaglar KwikPen U-100 Insulin) cephalexin 500 mg capsule 500 mg PO Q6H #28 caps 12/01/21 12/08/21 Rx doxycycline hyclate 100 mg capsule 1 cap PO BID 12/07/21 12/08/21 History prednisone 20 mg tablet 1.5 tablet PO DAILY 12/07/21 12/08/21 History rosuvastatin 40 mg tablet 1 tablet PO DAILY 12/07/21 12/08/21 History fluticasone furoate 200 1 inh inhalation DAILY 12/08/21 12/08/21 History mcg-vilanterol 25 mcg/dose inhalation powder (Breo Ellipta) metformin 1,000 mg tablet 1 tablet PO BID 12/08/21 12/08/21 History timolol maleate 0.5 % eye drops 1 drp LEFT EYE BID 12/10/21 12/10/21 History Laboratory Tests 12/08/21 12/08/21 12/10/21 22:21 22:21 20:37 WBC RBC Hgb Hct MCV MCH MCHC RDW Plt Count MPV Immature Gran % (Auto) Neut % (Auto) Lymph % (Auto) [place] % (Auto) Eos % (Auto) Baso % (Auto) Lymph # (Auto) [place] # (Auto) Eos # (Auto) Baso # (Auto) Abs Immat Gran (auto) Absolute Neuts (auto) Absolute Nucleated RBC Nucleated RBC % % Immature Plt Fraction PT INR Sodium Potassium Chloride Carbon Dioxide Anion Gap BUN Creatinine Estim Creat Clear Calc Estimated GFR Glucose POC Capillary Glucose 170 mg/dl H mg/dl (65-105) Calcium Phosphorus Albumin KENDAL Screen Negative (Negative) [place]/Lambda Ratio 0.84 (0.26-1.65) Free [place] Light Chains 22.2 mg/L H mg/L (3.3-19.4) Free [place]ambda Light Chain 26.5 mg/L H mg/L (5.7-26.3) Blood Type Antibody Screen Crossmatch 12/11/21 12/11/21 12/11/21 05:41 07:54 08:11 WBC RBC Hgb Hct MCV MCH MCHC RDW Plt Count MPV Immature Gran % (Auto) Neut % (Auto) Lymph % (Auto) [place] % (Auto) Eos % (Auto) Baso % (Auto) Lymph # (Auto) [place] # (Auto) Eos # (Auto) Baso # (Auto) Abs Immat Gran (auto) Absolute Neuts (auto) Absolute Nucleated RBC Nucleated RBC % % Immature Plt Fraction PT INR Sodium 130 mmol/L L mmol/L (137-145) Potassium 3.3 mmol/L L mmol/L (3.4-5.0) Chloride 91 mmol/L L mmol/L (98-107) Carbon Dioxide 29 mmol/L mmol/L (22-30) Anion Gap 10 mmol/L mmol/L (8-16) BUN 135 mg/dL H mg/dL (9-20)
[2021-12-11] MEDS: NOREPINEPHRINE 8 MG/D5W 250 ML 8 MG/250 ML BAG 28.13 MG IV CONT (20:08)
[2021-12-11] MEDS: CENTRAL LINE FLUSH 10 ML IV PUSH (20:38)
[2021-12-12] VITALS (38 sets, daily range): BP systolic 84–130; BP diastolic 47–94; PULSE 77–124; RESP 11–20; TEMP 36.2–36.8; O2SAT 90–100
[2021-12-12] MEDS: NOREPINEPHRINE 8 MG/D5W 250 ML 8 MG/250 ML BAG 18.75 MG IV CONT (00:37)
[2021-12-12] MEDS: ALBUMIN HUMAN 25% 25 GM/100 ML 100 ML IVPB ×4 (00:41→18:41)
[2021-12-12] MEDS: ALBUTEROL SULFATE NEB 2.5 MG/3 ML INH INHALATION ×4 (01:51→19:55)
[2021-12-12] MEDS: IPRATROPIUM BR 0.02% INH SOLN 0.5 MG/2.5 ML VIAL INHALATION ×4 (01:52→19:56)
[2021-12-12 02:29] LABS: Basophils Absolute Auto 0.1 K/mm3 (0.0-0.1); Basophils Percent Auto 0.3 % (0.2-1.2); Hematocrit 38.9 % (42.0-52.0); Immature Granulocyte Absolute 0.31 K/mm3 (0.00-0.031); Immature Platelet Fraction Pct 7.1 % (0.9-11.2); Lymphocytes Absolute Auto 0.38 K/mm3 (0.9-3.2); Lymphocytes Percent Auto 1.2 % (18.3-44.2); Mean Corpuscular HGB Conc 33.4 g/dl (32-36); Mean Corpuscular Hemoglobin 30.2 pg (26-34); Mean Corpuscular Volume 90.3 fl (80-100); Mean Platelet Volume 9.7 fl (7.4-10.4); Monocytes Absolute Auto 1.2 K/mm3 (0.1-0.6); Monocytes Percent Auto 3.7 % (2.6-8.5); Neutrophils Absolute Auto 29.4 K/mm3 (1.3-6.7); Neutrophils Percent Auto 93.8 % (45.5-73.1); Nucleated Red Blood Cells Perc 0.1 % (0.0-0.2); Platelet Count Result 78 k/mm3 (150-375); Red Blood Count 4.31 M/mm3 (4.6-6.20); Red Cell Distribution Width 13.9 % (11.5-14.5); White Blood Count 31.3 K/mm3 (4.5-10.0)
[2021-12-12 03:15] LABS: Alanine Aminotransferase 34 U/L (6-50); Albumin Level 2.4 g/dL (3.5-5.1); Alkaline Phosphatase 36 U/L (38-126); Anion Gap 11 mmol/L (8-16); Aspartate Amino Transferase 43 U/L (17-59); Bilirubin,Total 0.3 mg/dL (0.2-1.3); Calcium 5.7 mg/dL (8.4-10.2); Carbon Dioxide 21 mmol/L (22-30); Chloride 98 mmol/L (98-107); Estimated CRCL calculation 13 ml/min; Estimated Glomerular Filt Rate 14; Glucose 335 mg/dL (65-110); Magnesium 1.5 mg/dL (1.6-2.3); Potassium 3.5 mmol/L (3.4-5.0); Sodium 130 mmol/L (137-145)
[2021-12-12 03:20] LABS: Blood Urea Nitrogen 140 mg/dL (9-20)
[2021-12-12] MEDS: INSULIN ASPART (*BKC) 100 UNITS/ML SUB-Q ×3 (03:42→18:41)
[2021-12-12] MEDS: CENTRAL LINE FLUSH 10 ML IV PUSH ×4 (03:47→22:56)
[2021-12-12] MEDS: SODIUM CHLORIDE 0.9% IV 1,000 ML 75 ML IV CONT (04:49)
--- NOTE | 2021-12-12 06:49 | WPDGIPROGNO ---
Progress Note: A&P Assessment and Plan (1) Gastrointestinal bleeding: Code(s): K92.2 - Gastrointestinal hemorrhage, unspecified Status: Acute Assessment and Plan: he began seen blood in his stools yesterday. His states that it was dark red primarily. His hemoglobin dropped by over 4 g. he will have a tag red blood cell scan shortly. I told that depending on the results he may need EGD and/or colonoscopy tomorrow. Hopefully this can will localize source of bleeding. If not we will perform both upper and lower gastrointestinal endoscopy. I discussed the procedures with him and his and also discussed the prep and risks. 12/12/2021 since endoscopy and cautery of his ulcer, his blood counts have come up. Hemoglobin now over 13. This is likely to drop somewhat with equal aeration. His blood pressure has improved as we have been able to taper his pressors . I will start him on clear liquid diet. will continue to monitor with serial H&H. (2) Acute anemia: Code(s): D64.9 - Anemia, unspecified Status: Acute Assessment and Plan: He has never been anemic before. As noted, his hemoglobin was 14.1 yesterday and had been in normal range recently. He does not recall ever being treated for anemia in the past. 12/12/2021 total of 4 units of red blood cells have been given. (3) Acute kidney injury superimposed on chronic kidney disease: Code(s): N17.9 - Acute kidney failure, unspecified; N18.9 - Chronic kidney disease, unspecified Status: Acute Assessment and Plan: His BUN was 62 weeks ago and now is over 130. Likewise creatinine has increased from 1.5 2 weeks ago to 4.0 today he is being followed by Nephrology for acute chronic kidney failure (4) Bullous pemphigoid: Code(s): L12.0 - Bullous pemphigoid Status: Acute Assessment and Plan: he has had this condition for a long time. He states that he had been on prednisone, steroids for long time which is why he has chronic ecchymoses of his skin. He had finally got off the prednisone but recently did take a short course for a flare up and because of his COPD. (5) Ecchymosis: Code(s): R58 - Hemorrhage, not elsewhere classified Status: Acute Assessment and Plan: severe ecchymoses of the upper extremities which are not new and he believes secondary to long-term steroid therapy. He has not had any active bleeding from his extremities. (6) Hypotension: Code(s): I95.9 - Hypotension, unspecified Status: Acute Assessment and Plan: systolic pressure was below 100 most of the evening but has improved and now his norepinephrine drip has been tapered down to 7 mics. Subjective Date/time seen: 12/12/21 06:49 He has done well during the night. It appears that his bleeding has stopped since endoscopy. His blood counts have come up after 4 units of blood. Hemoglobin is currently 13, up from 5.8 before transfusion with 4 units of blood. His INR is elevated at 1.9, protime greater than 20 seconds. Consequently he will need FFP to help prevent rebleeding. His blood pressure has responded to Levophed which has been tapered from 20 mics down to 7. He asks whether he would need surgery not told him at this point it does not appear that he will. Exam Const: General: alert Orientation/consciousness: patient oriented x3 Resp: Auscultation: clear to auscultation bilaterally Cardio: Rhythm: regular rhythm GI: Auscultation: normal bowel sounds Skin: General skin exam: ecchymosis and purpura ( Upper extremity) Neuro: General: patient oriented x3 Objective Data Vital Signs Vital Signs: Vital Signs - 24 hr 12/11/21 08:03 12/11/21 10:04 12/11/21 10:06 Temperature Pulse Rate 94 83 83 Respiratory Rate 16 16 Blood Pressure Pulse Oximetry 93 Oxygen Delivery Nasal Cannula Oxygen Flow Rate 1 12/11/21 10:13 12/11/21 08:25 12/11/21 09:50 Temperature
--- NOTE | 2021-12-12 08:01 | PM.PNNEP ---
Progress Note: A&P Additional Plan 1. the patient has chronic kidney disease. Serology and immuno fix are pending. Renal ultrasound not done yet. Urinalysis shows protein blood bilirubin and white cells. Urine culture shows mixed general fill abhi. Blood cultures are pending. He is on ceftriaxone and vancomycin. KENDAL , sed rate, and complements okay. kappa lambda is normal. Immunofixation pending. Ultrasound shows normal size kidneys. This is most likely to diabetes and hypertension. Consider other causes due to blood in the urine? 2. The patient has acute on chronic kidney disease. Renal ultrasound not done yet. urine culture shows mixed general fill abhi. Urine electrolytes are non pre renal. Urine protein shows nephrotic range proteinuria. Blood cultures are No growth to date. Renal ultrasound shows no hydro. Normal size kidneys. He is on ceftriaxone and vancomycin. CPK is normal. acute kidney injury could be due to hydration versus progression of kidney disease, or other issues. CT did not show obstruction or stone, though. He did have bilateral perinephric stranding. He is on antibiotics in case infection is playing a role. He is too sick right now but possibly consider renal biopsy down the line. His BUN is high because of the renal failure but also because the blood in the gut. He has no uremic symptoms right now. I discussed with the patient that he might need dialysis down the line. 3. The patient has possible infection. He had cellulitis before and is on antibiotics for that. He has pyuria and perinephric stranding but is urine cultures are negative. However he was on antibiotics at the time of the culture from the prior emergency room stay. 4. Sodium level is fairly stable. 5. Metabolic acidosis is resolved. 6. Phosphorus level is better. 7. Hyperkalemia is resolved. 8. Diabetes. He is on insulin and sliding scale Per hospitalists. 9. Patient has hypertension. Blood pressure is well controlled. actually it is a little bit soft. 10. Edema is gone. 11. The patient has a duodenal ulcer with anemia. Getting treated for the ulcer. 12. The patient has hypotension. He is on pressors for this. Subjective Date/time seen: 12/12/21 08:00 Interval history: yesterday the patient had a substantial GI bleed. Bleeding scan and then endoscopy showed a duodenal ulcer. He is now on pantoprazole and octreotide. He never did really have any symptoms except for the blood in his stools. Patient feels okay today. He has no nausea Exam Narrative: WDWN in NAD skin no rash head ncat lungs clear to auscultation cor reg no rub or gallop abd BS+ nontender and soft ext 1+ bilateral edema below the knees. He has no erythema anymore. Objective Data Vital Signs Vital Signs: Vital Signs - 24 hr 12/11/21 15:27 12/11/21 17:14 12/11/21 17:31 Temperature 36.4 C L 36.1 C L Pulse Rate 112 H 109 H 102 H Respiratory Rate 20 23 H Blood Pressure 64/40 L 67/37 L 75/43 L Pulse Oximetry 98 92 Oxygen Delivery Oxygen Flow Rate 12/11/21 17:48 12/11/21 18:06 12/11/21 18:07 Temperature 36.1 C L 36.6 C 36.6 C Pulse Rate 95 104 H 101 H Respiratory Rate 19 21 H 20 Blood Pressure 67/37 L 84/55 L 84/55 L Pulse Oximetry 90 96 95 Oxygen Delivery Oxygen Flow Rate 12/11/21 19:02 12/11/21 18:24 12/11/21 19:28 Temperature 36.5 C 36.4 C Pulse Rate 93 99 92 Respiratory Rate 16 23 H Blood Pressure 48/21 L 103/82 90/55 L Pulse Oximetry 100 100 Oxygen Delivery Oxygen Flow Rate 12/11/21 18:40 12/11/21 18:50 12/11/21 18:55 Temperature 36.6 C Pulse Rate 100 98 101 H Respiratory Rate 19 20 20 Blood Pressure 77/42 L 81/30 L 48/21 L Pulse Oximetry 100 96 97 Oxygen Delivery Nasal Cannula Nasal Cannula Nasal Cannula Oxygen Flow Rate 1 1 1 12/11/21 18:57 12/11/21 19:02 12/11/21 16:00
[2021-12-12] MEDS: FLUTICASONE/SALMETEROL 230-21 MCG INHALER 1 PUFF 2 PUFF INHALATION ×2 (08:16→19:55)
[2021-12-12] MEDS: CALCIUM GLUC 2,000 MG/NS 100ML 2,000 MG/100 ML BAG 100 MG IVPB (10:10)
[2021-12-12] MEDS: TIMOLOL MALEATE 0.5% OP SOLN 5 ML BOTTLE 1 DROP LEFT EYE ×2 (10:11→16:31)
[2021-12-12] MEDS: INSULIN GLARGINE (*BKC) 100 UNITS/ML 20 UNITS SUB-Q (10:17)
[2021-12-12] MEDS: POTASSIUM CHLORIDE 20 MEQ PACKET (FOR LIQUID) 40 MEQ PO (10:18)
[2021-12-12] MEDS: MAGNESIUM SULF 2 GM/WATER 50ML 2 GM/50 ML BAG IVPB (10:18)
[2021-12-12 10:27] LABS: Glucose Point of Care 302 mg/dl (65-105)
[2021-12-12 11:21] LABS: Basophils Percent Auto 0.2 % (0.2-1.2); Eosinophils Absolute Auto 0.1 K/mm3 (0-0.3); Eosinophils Percent Auto 0.3 % (0-4.4); Hematocrit 31.2 % (42.0-52.0); Hemoglobin 10.6 g/dL (14.0-18.0); Immature Granulocyte Absolute 0.15 K/mm3 (0.00-0.031); Immature Granulocyte Percent A 0.8 % (0-0.5); Immature Platelet Fraction Pct 5.5 % (0.9-11.2); Lymphocytes Absolute Auto 0.59 K/mm3 (0.9-3.2); Mean Corpuscular Hemoglobin 29.9 pg (26-34); Mean Corpuscular Volume 88.1 fl (80-100); Mean Platelet Volume 10.6 fl (7.4-10.4); Monocytes Absolute Auto 1.1 K/mm3 (0.1-0.6); Monocytes Percent Auto 5.6 % (2.6-8.5); Neutrophils Percent Auto 90.1 % (45.5-73.1); Platelet Count Result 68 k/mm3 (150-375); Red Blood Count 3.54 M/mm3 (4.6-6.20); Red Cell Distribution Width 13.5 % (11.5-14.5); White Blood Count 19.9 K/mm3 (4.5-10.0)
--- NOTE | 2021-12-12 11:48 | WPDCNINT ---
Assessment and Plan Assessment and plan (1) Gastrointestinal bleeding: Code(s): K92.2 - Gastrointestinal hemorrhage, unspecified Status: Acute Assessment and Plan: Status post EGD which showed esophagitis gastritis and duodenal ulcer. Duodenal ulcer was injected with epinephrine cauterized and clipped He received 4 units of PRBC He is going to get 2 units of FFP for coagulopathy which was ordered by GI Continue serial hemoglobin monitoring every 6 hours Continue PPI infusion Discontinue octreotide infusion Started on clear liquid diet by GI advanced as per Gastroenterology recommendations (2) Acute kidney injury superimposed on chronic kidney disease: Code(s): N17.9 - Acute kidney failure, unspecified; N18.9 - Chronic kidney disease, unspecified Status: Acute Assessment and Plan: Patient is being followed by Nephrology who is managing workup for his acute kidney injury BUN is disproportionately elevated as compared to creatinine secondary to GI bleed Will defer workup and non emergent management to Nephrology (3) Shock: Code(s): R57.9 - Shock, unspecified Status: Acute Assessment and Plan: Hemorrhagic and hypovolemic shock secondary to upper GI bleed Patient was given2 L fluid bolus followed by 4 units of PRBC transfusion yesterday central venous catheter was emergently placed and patient was started on Levophed for blood pressure support continue Levophed titration to maintain mean arterial pressure patient is going get FFP today as per GI will hold further IV fluids in light of his renal failure and low urine output he is also receiving 25% albumin (4) Duodenal ulcer: Code(s): K26.9 - Duodenal ulcer, unspecified as acute or chronic, without hemorrhage or perforation Status: Acute Assessment and Plan: See above (5) Gastritis: Code(s): K29.70 - Gastritis, unspecified, without bleeding Status: Acute (6) Esophagitis: Code(s): K20.90 - Esophagitis, unspecified without bleeding Status: Acute (7) Hyperglycemia: Code(s): R73.9 - Hyperglycemia, unspecified Status: Acute Assessment and Plan: Continue Lantus and sliding scale (8) Electrolyte abnormality: Code(s): E87.8 - Other disorders of electrolyte and fluid balance, not elsewhere classified Status: Acute Assessment and Plan: Replace low Mag potassium and calcium (9) Metabolic acidosis: Code(s): E87.2 - Acidosis Status: Acute Assessment and Plan: Add bicarb (10) Coagulopathy: Code(s): D68.9 - Coagulation defect, unspecified Status: Acute Assessment and Plan: To he is going to receive FFP Will give vitamin K Check INR and fibrinogen level in the morning (11) UTI (urinary tract infection): Code(s): N39.0 - Urinary tract infection, site not specified Status: Acute Assessment and Plan: His UA was abnormal culture was negative. He will Complete a 5 day course of antibiotic tomorrow Additional Plan DVT prophylaxis -SCDs Stress ulcer prophylaxis -on PPI infusion Nutrition -clear liquid diet Code Status - Full Code Total Critical Care Time -32 minutes Due to a high probability of clinically significant, life threatening deterioration, the patient required my highest level of preparedness to intervene emergently and I personally spent this critical care time directly and personally managing the patient. This critical care time included obtaining a history; examining the patient; pulse oximetry; ordering and review of studies; arranging urgent treatment with development of a management plan; evaluation of patient's response to treatment; frequent reassessment; and discussions with other providers. It was exclusive of separately billable procedures and treating other patients and teaching time. Please see Assessment and Plan section and the rest of the note for further information on
[2021-12-12] MEDS: ROSUVASTATIN 10 MG TABLET 40 MG PO (13:08)
[2021-12-12 13:25] LABS: Glucose Point of Care 288 mg/dl (65-105)
[2021-12-12 13:38] LABS: Complement Total CH50 >60 U/mL (31-60)
[2021-12-12] MEDS: SODIUM CHLORIDE 0.9% IV 250 ML 30 ML IV CONT (15:56)
--- NOTE | 2021-12-12 16:00 | PCPTNOTE ---
Spoke with Dr. Price, patient currently on bedrest due to having a R femoral central line placed on 12/11/21. Dr. Price aware and approved Discharge of therapy orders at this time. Please re-order when patient is appropriate.
--- NOTE | 2021-12-12 16:53 | PCOTNOTE ---
D/C pt. from OT services at this time. Pt. experienced change in status, with transfer to ICU and femoral line placement. Pt is not appropriate for OT services at this time. Re-order therapy evaluations, when femoral line removed, and pt. safe to participate in therapy.
[2021-12-12 17:11] LABS: Hematocrit 26.1 % (42.0-52.0); Hemoglobin 9.3 g/dL (14.0-18.0)
[2021-12-12 19:02] LABS: Glucose Point of Care 210 mg/dl (65-105)
[2021-12-12] MEDS: PHYTONADIONE INJ 10 MG/ML AMP SUB-Q (19:23)
[2021-12-12] MEDS: ACETAMINOPHEN 325 MG TABLET 650 MG PO (22:55)
[2021-12-13] VITALS (25 sets, daily range): BP systolic 86–112; BP diastolic 46–59; PULSE 69–81; RESP 10–24; TEMP 36.4–36.8; O2SAT 90–100
[2021-12-13 00:36] LABS: Glucose Point of Care 102 mg/dl (65-105)
[2021-12-13] MEDS: ALBUMIN HUMAN 25% 25 GM/100 ML 100 ML IVPB ×2 (00:37→05:31)
[2021-12-13] MEDS: NOREPINEPHRINE 8 MG/D5W 250 ML 8 MG/250 ML BAG 7.5 MG IV CONT (00:38)
[2021-12-13 01:33] LABS: Hemoglobin 8.2 g/dL (14.0-18.0)
[2021-12-13] MEDS: IPRATROPIUM BR 0.02% INH SOLN 0.5 MG/2.5 ML VIAL INHALATION ×4 (02:07→19:45)
[2021-12-13] MEDS: ALBUTEROL SULFATE NEB 2.5 MG/3 ML INH INHALATION ×4 (02:07→19:45)
[2021-12-13 04:59] LABS: Hemoglobin 8.1 g/dL (14.0-18.0); Immature Platelet Fraction Pct 5.6 % (0.9-11.2); Mean Corpuscular HGB Conc 33.8 g/dl (32-36); Mean Corpuscular Hemoglobin 29.9 pg (26-34); Mean Corpuscular Volume 88.6 fl (80-100); Mean Platelet Volume 9.8 fl (7.4-10.4); Platelet Count Result 66 k/mm3 (150-375); Red Blood Count 2.71 M/mm3 (4.6-6.20); Red Cell Distribution Width 13.8 % (11.5-14.5); White Blood Count 12.8 K/mm3 (4.5-10.0)
[2021-12-13 05:00] LABS: INR 1.3; Prothrombin Time 15.8 Seconds (11.1-14.7)
[2021-12-13 05:01] LABS: Fibrinogen 247 mg/dl (215-510)
[2021-12-13 05:06] LABS: Alanine Aminotransferase 28 U/L (6-50); Albumin Level 3.4 g/dL (3.5-5.1); Alkaline Phosphatase 40 U/L (38-126); Anion Gap 11 mmol/L (8-16); Aspartate Amino Transferase 31 U/L (17-59); Bilirubin,Total 0.3 mg/dL (0.2-1.3); Calcium 6.9 mg/dL (8.4-10.2); Carbon Dioxide 25 mmol/L (22-30); Chloride 98 mmol/L (98-107); Estimated CRCL calculation 13 ml/min; Estimated Glomerular Filt Rate 14; Glucose 100 mg/dL (65-110); Magnesium 1.9 mg/dL (1.6-2.3); Sodium 134 mmol/L (137-145)
[2021-12-13 05:11] LABS: Blood Urea Nitrogen 129 mg/dL (9-20)
[2021-12-13] MEDS: CENTRAL LINE FLUSH 10 ML IV PUSH ×4 (05:32→20:12)
[2021-12-13] MEDS: ACETAMINOPHEN 325 MG TABLET 650 MG PO ×2 (05:34→20:22)
[2021-12-13] MEDS: CALCIUM GLUC 1,000 MG/NS 50 ML 1,000 MG/50 ML BAG 100 MG IVPB (08:40)
[2021-12-13] MEDS: KCL 20 MEQ/SW 100 ML 100 ML 50 MEQ IVPB (08:41)
[2021-12-13] MEDS: MIDODRINE HCL 10 MG TABLET PO ×3 (08:49→17:15)
[2021-12-13] MEDS: PANTOPRAZOLE SODIUM IV 40 MG VIAL IV PUSH ×2 (08:50→20:13)
[2021-12-13] MEDS: ROSUVASTATIN 10 MG TABLET 40 MG PO (09:00)
[2021-12-13] MEDS: TIMOLOL MALEATE 0.5% OP SOLN 5 ML BOTTLE 1 DROP LEFT EYE ×2 (09:00→17:15)
[2021-12-13 09:13] LABS: Glucose Point of Care 90 mg/dl (65-105)
[2021-12-13] MEDS: FLUTICASONE/SALMETEROL 230-21 MCG INHALER 1 PUFF 2 PUFF INHALATION ×2 (09:45→19:50)
--- NOTE | 2021-12-13 10:05 | WPDINTPN ---
Progress Note: A&P Assessment and Plan (1) Gastrointestinal bleeding: Code(s): K92.2 - Gastrointestinal hemorrhage, unspecified Status: Acute Assessment and Plan: Status post EGD which showed esophagitis gastritis and duodenal ulcer. Duodenal ulcer was injected with epinephrine cauterized and clipped He received 4 units of PRBC and 2 units of FFP for coagulopathy which was ordered by GI Hemoglobin appears to be stable in the range of 8. INR is 1.3 this morning Continue serial hemoglobin monitoring every 6 hours for another 24 hours Change PPI infusion to IV q.12 hours octreotide infusion was discontinued yesterday He is on liquid diet. Further advancement of diet per Gastroenterology recommendations (2) Acute kidney injury superimposed on chronic kidney disease: Code(s): N17.9 - Acute kidney failure, unspecified; N18.9 - Chronic kidney disease, unspecified Status: Acute Assessment and Plan: Patient is being followed by Nephrology who is managing workup for his acute kidney injury BUN is disproportionately elevated as compared to creatinine secondary to GI bleed His BUN is improving today and creatinine is stable. He has good urine output and potassium is low Will defer workup and non emergent management to Nephrology Hold diuretics as patient is on Levophed and also has good urine output without any diuretics Off IV fluids at this time (3) Shock: Code(s): R57.9 - Shock, unspecified Status: Acute Assessment and Plan: Hemorrhagic and hypovolemic shock secondary to upper GI bleed Patient was given2 L fluid bolus followed by 4 units of PRBC transfusion 12/12 central venous catheter was emergently placed and patient was started on Levophed for blood pressure support continue Levophed titration to maintain mean arterial pressure 12/13 patient was given 2 units of FFP by GI He is off IV fluids at this time He is receiving 25% albumin Add midodrine (4) Duodenal ulcer: Code(s): K26.9 - Duodenal ulcer, unspecified as acute or chronic, without hemorrhage or perforation Status: Acute Assessment and Plan: See above (5) Gastritis: Code(s): K29.70 - Gastritis, unspecified, without bleeding Status: Acute Assessment and Plan: See above (6) Esophagitis: Code(s): K20.90 - Esophagitis, unspecified without bleeding Status: Acute Assessment and Plan: See above (7) Hyperglycemia: Code(s): R73.9 - Hyperglycemia, unspecified Status: Acute Assessment and Plan: Continue sliding scale but hold Lantus until p.o. diet is back to baseline (8) Electrolyte abnormality: Code(s): E87.8 - Other disorders of electrolyte and fluid balance, not elsewhere classified Status: Acute Assessment and Plan: Replace low potassium and calcium (9) Metabolic acidosis: Code(s): E87.2 - Acidosis Status: Acute Assessment and Plan: Improved with bicarb (10) Coagulopathy: Code(s): D68.9 - Coagulation defect, unspecified Status: Acute Assessment and Plan: He received 2 units of FFP and 10 mg of vitamin K INR 1.3 and fibrinogen level is adequate this morning (11) UTI (urinary tract infection): Code(s): N39.0 - Urinary tract infection, site not specified Status: Acute Assessment and Plan: His UA was abnormal culture was negative. He will Complete a 5 day course of antibiotic 12/13 Additional Plan DVT prophylaxis -SCDs Stress ulcer prophylaxis -on PPI infusion Nutrition -clear liquid diet Code Status - Full Code Total Critical Care Time -30 minutes Due to a high probability of clinically significant, life threatening deterioration, the patient required my highest level of preparedness to intervene emergently and I personally spent this critical care time directly and personally managing the patient. This critical care time included obtaining a history; examini
--- NOTE | 2021-12-13 10:08 | PM.PNNEP ---
Progress Note: A&P Additional Plan 1. the patient has chronic kidney disease. Serology and immuno fix are pending. Renal ultrasound not done yet. Urinalysis shows protein blood bilirubin and white cells. Urine culture shows mixed general fill abhi. Blood cultures are pending. He is on ceftriaxone and vancomycin. KENDAL , sed rate, and complements okay. kappa lambda is normal. Immunofixation pending. Ultrasound shows normal size kidneys. This is most likely to diabetes and hypertension. Consider other causes due to blood in the urine? 2. The patient has acute on chronic kidney disease. Renal ultrasound not done yet. urine culture shows mixed urogenital abhi. Urine electrolytes are non pre renal. Urine protein shows nephrotic range proteinuria. Blood cultures are No growth to date. Renal ultrasound shows no hydro. Normal size kidneys. He is now off antibiotics. CPK is normal. acute kidney injury could be due to hydration versus progression of kidney disease, or other issues. CT did not show obstruction or stone, though. He did have bilateral perinephric stranding. He is on antibiotics in case infection is playing a role. He is too sick right now but possibly consider renal biopsy down the line. His BUN is high because of the renal failure but also because the blood in the gut. His BUN has come down some but the creatinine is stable. He has no uremic symptoms right now. I discussed with the patient that he might need dialysis down the line. 3. The patient has possible infection. He had cellulitis before and is on antibiotics for that. He has pyuria and perinephric stranding but is urine cultures are negative. However he was on antibiotics at the time of the culture from the prior emergency room stay. 4. Sodium level is fairly stable. Just barely below normal. 5. Metabolic acidosis is resolved. 6. Phosphorus level is better. 7. Hyperkalemia is resolved. 8. Diabetes. He is on insulin and sliding scale Per hospitalists. 9. Patient has hypertension. Blood pressure meds are on hold. 10. Edema is gone. 11. The patient has a duodenal ulcer with anemia. Getting treated for the ulcer. 12. The patient has hypotension. He is on pressors for this. he is still on norepinephrine. Starting midodrine to see if the norepinephrine can be weaned. Subjective Date/time seen: 12/13/21 10:08 Interval history: The patient is hungry. He wants regular food. He is tired of the full liquid diet. He has no more bright red blood. He does have some black stools. No belly pain or nausea. No chest pain or shortness of breath Exam Narrative: WDWN in NAD skin no rash head ncat lungs clear cor reg no rub or gallop abd BS+ nontender and soft ext 1+ bilateral edema below the knees. He has no erythema anymore. Objective Data Vital Signs Vital Signs: Vital Signs - 24 hr 12/12/21 10:18 12/12/21 10:30 12/12/21 11:00 Temperature Pulse Rate 91 88 92 Respiratory Rate Blood Pressure 120/64 129/94 H 111/80 Pulse Oximetry Oxygen Delivery Oxygen Flow Rate 12/12/21 14:20 12/12/21 14:53 12/12/21 14:30 Temperature Pulse Rate 81 78 Respiratory Rate 12 13 Blood Pressure Pulse Oximetry 96 Oxygen Delivery Nasal Cannula Oxygen Flow Rate 2 12/12/21 13:32 12/12/21 14:05 12/12/21 16:15 Temperature 36.2 C L Pulse Rate 79 78 77 Respiratory Rate 11 L Blood Pressure 101/52 L Pulse Oximetry 100 Oxygen Delivery Oxygen Flow Rate 12/12/21 16:30 12/12/21 17:30 12/12/21 12:00 Temperature 36.6 C 36.6 C Pulse Rate 80 81 89 Respiratory Rate 11 L 15 Blood Pressure 92/50 L 109/52 L Pulse Oximetry 100 95 Oxygen Delivery Oxygen Flow Rate 12/12/21 12:00 12/12/21 12:00 12/12/21 18:00 Temperature 36.4 C L Pulse Rate 79 81 Respiratory Rate 12 Blood Pressure 104/60 Pulse
--- NOTE | 2021-12-13 11:53 | WPDGIPROGNO ---
Progress Note: A&P Assessment and Plan (1) Gastrointestinal bleeding: Code(s): K92.2 - Gastrointestinal hemorrhage, unspecified Status: Acute Assessment and Plan: he began seen blood in his stools yesterday. His states that it was dark red primarily. His hemoglobin dropped by over 4 g. he will have a tag red blood cell scan shortly. I told that depending on the results he may need EGD and/or colonoscopy tomorrow. Hopefully this can will localize source of bleeding. If not we will perform both upper and lower gastrointestinal endoscopy. I discussed the procedures with him and his and also discussed the prep and risks. 12/12/2021 since endoscopy and cautery of his ulcer, his blood counts have come up. Hemoglobin now over 13. This is likely to drop somewhat with equal aeration. His blood pressure has improved as we have been able to taper his pressors . I will start him on clear liquid diet. will continue to monitor with serial H&H. 12/13/21 he had dark stools yesterday and during the night but none so far today. It appears that the bleeding has stopped. I discussed his situation with his family. I told that if his counts are stable we will advance his diet. (2) Acute anemia: Code(s): D64.9 - Anemia, unspecified Status: Acute Assessment and Plan: He has never been anemic before. As noted, his hemoglobin was 14.1 yesterday and had been in normal range recently. He does not recall ever being treated for anemia in the past. 12/12/2021 total of 4 units of red blood cells have been given. 12/13/2021 no further blood has been needed so far. He did receive FFP to bring his INR down (3) Acute kidney injury superimposed on chronic kidney disease: Code(s): N17.9 - Acute kidney failure, unspecified; N18.9 - Chronic kidney disease, unspecified Status: Acute Assessment and Plan: His BUN was 62 weeks ago and now is over 130. Likewise creatinine has increased from 1.5 2 weeks ago to 4.0 today he is being followed by Nephrology for acute chronic kidney failure 12/13/2021 BUN is down today. Part of his elevation was likely due to his gastrointestinal bleeding. (4) Bullous pemphigoid: Code(s): L12.0 - Bullous pemphigoid Status: Acute Assessment and Plan: he has had this condition for a long time. He states that he had been on prednisone, steroids for long time which is why he has chronic ecchymoses of his skin. He had finally got off the prednisone but recently did take a short course for a flare up and because of his COPD. (5) Ecchymosis: Code(s): R58 - Hemorrhage, not elsewhere classified Status: Acute Assessment and Plan: severe ecchymoses of the upper extremities which are not new and he believes secondary to long-term steroid therapy. He has not had any active bleeding from his extremities. (6) Hypotension: Code(s): I95.9 - Hypotension, unspecified Status: Acute Assessment and Plan: systolic pressure was below 100 most of the evening but has improved and now his norepinephrine drip has been tapered down to 7 mics. 12/13/2021 vasopressors continue to be tapered. Subjective Date/time seen: 12/13/21 11:53 He Passed dark stools last night. None today so far. He is hungry and would like to eat. Vital signs are stable as Levophed is tapered. Denies pain. He is drowsy now. I discussed his case with the family, his and son. I explained that there is a chance that he could rebleed but usually that happens within the 1st 48 hours. His hemoglobin was 8.2 then 8.1. We are awaiting the most recent draw Review of Systems Review of Systems: All systems reviewed & are unremarkable except as noted in HPI and below (HPI) Exam Const: General: alert Orientation/consciousness: patient oriented x3 Resp: Auscultation: clear to auscultation bilaterally Cardio: Rhythm: regular rhythm GI: GI Palp:
[2021-12-13] MEDS: POTASSIUM CHLORIDE 10 MEQ TABLET 40 MEQ PO (11:56)
[2021-12-13 12:08] LABS: Glucose Point of Care 126 mg/dl (65-105)
[2021-12-13 12:16] LABS: Hematocrit 24.1 % (42.0-52.0); Hemoglobin 8.2 g/dL (14.0-18.0)
--- NOTE | 2021-12-13 14:12 | PM.IMPN ---
Progress Note: A&P Assessment and Plan (1) Acute kidney injury superimposed on chronic kidney disease: Code(s): N17.9 - Acute kidney failure, unspecified; N18.9 - Chronic kidney disease, unspecified Status: Acute Assessment and Plan: Most likely multifactorial including dehydration from diarrhea as well as advancing kidney disease. Nephrology Consul, monitor labs -question need for hemodialysis. -possible progression chronic kidney disease (2) Acute hyperkalemia: Code(s): E87.5 - Hyperkalemia Status: Acute Assessment and Plan: Monitor (3) Acidosis: Code(s): E87.2 - Acidosis Status: Acute Assessment and Plan: Metabolic. Complicated by renal failure. (4) UTI (urinary tract infection): Code(s): N39.0 - Urinary tract infection, site not specified Status: Acute Assessment and Plan: Negative urine cultures. (5) Weakness: Code(s): R53.1 - Weakness Status: Acute Assessment and Plan: Question etiology. Likely related to worsening kidney function and uremia. Being managed per Nephrology (6) Hyponatremia: Code(s): E87.1 - Hypo-osmolality and hyponatremia Status: Acute Assessment and Plan: Likely secondary to the decreased p.o. intake and also renal dysfunction. Plan If cultures negative can Dc antibiotics Additional Plan 12/13/2021 interval history patient still complains of being tired and fatigue does not feel like participating in physical therapy and has a poor appetite, patient is a chronic kidney disease seen by Nephrology suspect secondary to diabetes and hypertension kidney ultrasound is normal, blood in urine culture no growth so far patient is being treated ceftriaxone and vancomycin will continue 1 more day if there is no growth will stop antibiotic, will continue IV fluid and monitor kidney function, will PT OT evaluate the patient, patient is present in the room and answered all questions. This morning patient was more somnolent and his BP was soft, his stool was black, no esperanza bleeding, patient was given NS 500 bolus which did improve his BP, gave another 500cc bolus, his HGB dropped to 9.8 today from 14.1 on 12/10, RBC tag scan showed Active gastrointestinal bleed which appears to originate in the proximal duodenum in the right upper quadrant which suggests possibility of peptic ulcer disease. Consider endoscopy for further evaluation. D/W Dr. Stark, will give 2 units of PRBC, 1 L of NS bolus, PPI drip, and transferred to ICU, will Check hgb q4 hours, Called Dr. Odonnell, no answer and sent a text with information, will monitor, will Keep patient NPO. on 12/11 patient hemoglobin dropped to 5.6 patient was taken to GI lab had a EGD and patient had a bleeding duodenal ulcer which was cauterized and clipped patient was transferred to ICU. patient was found to elevated INR 1.9 though is not on any anticoagulation, most likely secondary to liver disease, patient was also given FFP, his hemoglobin is stable and not requiring any more transfusion, patient states is feeling little better compared to when he arrived, will continue to monitor patient is seen by family program specialist and GI further recommendation to follow. Subjective Date/time seen: 12/13/21 14:12 12/13/2021 interval history patient still complains of being tired and fatigue does not feel like participating in physical therapy and has a poor appetite, patient is a chronic kidney disease seen by Nephrology suspect secondary to diabetes and hypertension kidney ultrasound is normal, blood in urine culture no growth so far patient is being treated ceftriaxone and vancomycin will continue 1 more day if there is no growth will stop antibiotic, will continue IV fluid and monitor kidney function, will PT OT evaluate the patient, patient is present in the room and answered all questions. This morning patient was more somnolent and his BP was soft, his stool was bl
--- NOTE | 2021-12-13 14:27 | P.PNCROSS_ITS ---
Event Note Event Note Event Note: Patient's left foot dorsal surface appears red and warm. Appears to be celluli tis. Both dorsalis pedis and posterior tibial pulses are palpable. Cap refill is good. He does have lower extremity edema bilaterally. Will start vancomycin. Requested nurse to burak the area with a skin marker
[2021-12-13 17:18] LABS: Glucose Point of Care 142 mg/dl (65-105)
[2021-12-13 18:59] LABS: Hemoglobin 8.2 g/dL (14.0-18.0)
[2021-12-13 21:08] LABS: Glucose Point of Care 177 mg/dl (65-105)
[2021-12-14] VITALS (27 sets, daily range): BP systolic 86–112; BP diastolic 43–63; PULSE 61–78; RESP 12–25; TEMP 36.4–37.1; O2SAT 88–100
--- NOTE | 2021-12-14 01:55 | PC.NURSE ---
This RN spoke with patient concerning patient needing to turn and change positions. Made him aware that he will end up with bedsores if he does not move. Patient stated, I don't care if I get bedsores.
[2021-12-14] MEDS: ALBUTEROL SULFATE NEB 2.5 MG/3 ML INH INHALATION ×4 (02:11→20:27)
[2021-12-14] MEDS: IPRATROPIUM BR 0.02% INH SOLN 0.5 MG/2.5 ML VIAL INHALATION ×4 (02:11→20:27)
[2021-12-14] MEDS: ACETAMINOPHEN 325 MG TABLET 650 MG PO ×3 (02:16→16:00)
[2021-12-14] MEDS: CENTRAL LINE FLUSH 10 ML IV PUSH ×4 (06:09→20:48)
[2021-12-14 06:15] LABS: Hematocrit 24.4 % (42.0-52.0); Hemoglobin 8.1 g/dL (14.0-18.0); Immature Platelet Fraction Pct 4.8 % (0.9-11.2); Mean Corpuscular HGB Conc 33.2 g/dl (32-36); Mean Corpuscular Hemoglobin 29.8 pg (26-34); Mean Corpuscular Volume 89.7 fl (80-100); Mean Platelet Volume 9.9 fl (7.4-10.4); Platelet Count Result 80 k/mm3 (150-375); Red Blood Count 2.72 M/mm3 (4.6-6.20); White Blood Count 12.1 K/mm3 (4.5-10.0)
[2021-12-14 06:26] LABS: Alanine Aminotransferase 24 U/L (6-50); Albumin Level 3.4 g/dL (3.5-5.1); Alkaline Phosphatase 56 U/L (38-126); Anion Gap 9 mmol/L (8-16); Aspartate Amino Transferase 26 U/L (17-59); Bilirubin,Total 0.3 mg/dL (0.2-1.3); Blood Urea Nitrogen 119 mg/dL (9-20); Calcium 7.4 mg/dL (8.4-10.2); Carbon Dioxide 26 mmol/L (22-30); Chloride 101 mmol/L (98-107); Glucose 146 mg/dL (65-110); Magnesium 1.8 mg/dL (1.6-2.3); Phosphorus 3.4 mg/dL (2.5-4.5); Potassium 3.8 mmol/L (3.4-5.0); Sodium 136 mmol/L (137-145)
[2021-12-14 06:30] LABS: Estimated CRCL calculation 12 ml/min; Estimated Glomerular Filt Rate 12
[2021-12-14] MEDS: CALCIUM GLUC 1,000 MG/NS 50 ML 1,000 MG/50 ML BAG 100 MG IVPB (07:57)
[2021-12-14] MEDS: ROSUVASTATIN 10 MG TABLET 40 MG PO (07:58)
[2021-12-14] MEDS: PANTOPRAZOLE SODIUM IV 40 MG VIAL IV PUSH ×2 (07:58→20:48)
[2021-12-14] MEDS: TIMOLOL MALEATE 0.5% OP SOLN 5 ML BOTTLE 1 DROP LEFT EYE ×2 (07:59→16:01)
[2021-12-14] MEDS: MIDODRINE HCL 10 MG TABLET PO ×3 (07:59→16:00)
[2021-12-14 08:25] LABS: Glucose Point of Care 151 mg/dl (65-105)
[2021-12-14] MEDS: FLUTICASONE/SALMETEROL 230-21 MCG INHALER 1 PUFF 2 PUFF INHALATION ×2 (08:47→20:27)
--- NOTE | 2021-12-14 09:41 | WPDINTPN ---
Progress Note: A&P Assessment and Plan (1) Gastrointestinal bleeding: Code(s): K92.2 - Gastrointestinal hemorrhage, unspecified Status: Acute Assessment and Plan: Status post EGD which showed esophagitis gastritis and duodenal ulcer. Duodenal ulcer was injected with epinephrine cauterized and clipped He received 4 units of PRBC and 2 units of FFP for coagulopathy which was ordered by GI Hemoglobin appears to be stable in the range of 8 now for last 2 days INR is 1.3 this morning Continue monitoring but less frequently at this time Continue PPI infusion to IV q.12 hours octreotide infusion was discontinued yesterday He is on self diet. Further advancement of diet per Gastroenterology recommendations (2) Acute kidney injury superimposed on chronic kidney disease: Code(s): N17.9 - Acute kidney failure, unspecified; N18.9 - Chronic kidney disease, unspecified Status: Acute Assessment and Plan: Patient is being followed by Nephrology who is managing workup for his acute kidney injury BUN is disproportionately elevated as compared to creatinine secondary to GI bleed His BUN is improving today and creatinine is stable. He has good urine output and potassium is in normal range Will defer workup and non emergent management to Nephrology Hold diuretics as patient is on Levophed and also has good urine output without any diuretics Off IV fluids at this time (3) Shock: Code(s): R57.9 - Shock, unspecified Status: Acute Assessment and Plan: Hemorrhagic and hypovolemic shock secondary to upper GI bleed Patient was given 2 L fluid bolus followed by 4 units of PRBC transfusion 12/12 central venous catheter was emergently placed and patient was started on Levophed for blood pressure support Patient continues to require 2-3 mcg of Levophed to maintain his mean arterial pressure. Continue Levophed titration to maintain mean arterial pressure 12/13 patient was given 2 units of FFP by GI He is off IV fluids at this time I will continue 25% albumin for another 24 hours Continue midodrine And hydrocortisone (4) Duodenal ulcer: Code(s): K26.9 - Duodenal ulcer, unspecified as acute or chronic, without hemorrhage or perforation Status: Acute Assessment and Plan: See above (5) Gastritis: Code(s): K29.70 - Gastritis, unspecified, without bleeding Status: Acute Assessment and Plan: See above (6) Esophagitis: Code(s): K20.90 - Esophagitis, unspecified without bleeding Status: Acute Assessment and Plan: See above (7) Hyperglycemia: Code(s): R73.9 - Hyperglycemia, unspecified Status: Acute Assessment and Plan: Continue sliding scale but hold Lantus until p.o. diet is back to baseline (8) Electrolyte abnormality: Code(s): E87.8 - Other disorders of electrolyte and fluid balance, not elsewhere classified Status: Acute Assessment and Plan: Replace low calcium (9) Metabolic acidosis: Code(s): E87.2 - Acidosis Status: Acute Assessment and Plan: Improved with bicarb (10) Coagulopathy: Code(s): D68.9 - Coagulation defect, unspecified Status: Acute Assessment and Plan: He received 2 units of FFP and 10 mg of vitamin K INR 1.3 and fibrinogen level is adequate this morning (11) UTI (urinary tract infection): Code(s): N39.0 - Urinary tract infection, site not specified Status: Acute Assessment and Plan: His UA was abnormal culture was negative. He will Complete a 5 day course of antibiotic 12/13 (12) Cellulitis: Code(s): L03.90 - Cellulitis, unspecified Status: Acute Assessment and Plan: The area of redness and redness itself appears better today. He is afebrile. Continue vancomycin at this time (13) COPD (chronic obstructive pulmonary disease): Code(s): J44.9 - Chronic obstructive pulmonary disease, unspecified Status
--- NOTE | 2021-12-14 10:52 | PM.PNNEP ---
Progress Note: A&P Additional Plan 1. the patient has chronic kidney disease. Serology negative. Renal ultrasound not done yet. Urinalysis shows protein blood bilirubin and white cells. Urine culture shows mixed general fill abhi. Blood cultures are negative He is on vancomycin. KENDAL , sed rate, and complements okay. kappa lambda is normal. 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 Urine immunofixation pending. Ultrasound shows normal size kidneys. Most likely has hypertension and diabetes involved in his kidney issues but also has a positive serum immuno fix. He will need a biopsy. Will let Dr. Hernández know. 2. The patient has acute on chronic kidney disease. Renal ultrasound not done yet. urine culture shows mixed urogenital abhi. Urine electrolytes are non pre renal. Urine protein shows nephrotic range proteinuria. Blood cultures are No growth to date. Renal ultrasound shows no hydro. Normal size kidneys. He is now off antibiotics. CPK is normal. The smoldering rise in his creatinine may be due to a paraprotein issue. He is still on pressors for low blood pressure from his GI bleed. So he is still too sick for a renal biopsy. His creatinine unfortunately is worse. But his BUN is better. He has no uremic symptoms. He may need dialysis at some point. 3. The patient has possible infection. He had cellulitis before and is on antibiotics for that. He has pyuria and perinephric stranding but is urine cultures are negative. However he was on antibiotics at the time of the culture from the prior emergency room stay. 4. Sodium level is fairly stable. Just barely below normal. 5. Metabolic acidosis is resolved. 6. Phosphorus level is better. 7. Hyperkalemia is resolved. 8. Diabetes. He is on insulin and sliding scale Per hospitalists. 9. Patient has hypertension. Blood pressure meds are on hold. 10. Edema is minimal. 11. The patient has a duodenal ulcer with anemia. Getting treated for the ulcer. 12. The patient has hypotension. He is on pressors but at a lower dose. Subjective Date/time seen: 12/14/21 10:52 Interval history: The patient is hungry. He got a regular breakfast. No chest pain shortness of breath or nausea. Exam Narrative: WDWN in NAD skin no rash or subQ nodules head ncat lungs clear bilaterally cor reg no rub abd BS+ nontender and soft ext trace edema Objective Data Vital Signs Vital Signs: Vital Signs - 24 hr 12/13/21 12:00 12/13/21 14:00 12/13/21 14:30 Temperature Pulse Rate 79 76 Respiratory Rate 21 H Blood Pressure 112/59 L Pulse Oximetry 96 Oxygen Delivery Nasal Cannula Oxygen Flow Rate 3 12/13/21 14:36 12/13/21 12:00 12/13/21 12:00 Temperature 36.6 C Pulse Rate 76 74 74 Respiratory Rate 16 19 Blood Pressure 103/54 L Pulse Oximetry 98 Oxygen Delivery Oxygen Flow Rate 12/13/21 16:00 12/13/21 14:00 12/13/21 14:00 Temperature Pulse Rate 70 80 Respiratory Rate 20 Blood Pressure 112/59 L Pulse Oximetry 95 98 Oxygen Delivery Nasal Cannula Oxygen Flow Rate 3 12/13/21 16:00 12/13/21 16:00 12/13/21 18:00 Temperature 36.4 C L Pulse Rate 81 81 79 Respiratory Rate 24 H Blood Pressure 97/50 L Pulse Oximetry 97 Oxygen Delivery Oxygen Flow Rate 12/13/21 18:00 12/13/21 19:45 12/13/21 19:45 Temperature Pulse Rate 81 79 Respiratory Rate 20 23 H Blood Pressure 100/54 L Pulse Oximetry 90 98 Oxygen Delivery Nasal Cannula Oxygen Flow Rate 4 12/13/21 19:52 12/13/21 20:00 12/13/21 20:00 Temperature Pulse Rate 80 81 Respiratory Rate 19 Blood Pressure Pulse Oximetry 96 Oxygen Delivery Nasal Cannula Oxygen Flow Rate 3 12/13/21 20:00 12/13/21 22:00 12/13/21 22:00 Temperature 36.7 C Pulse Rate 80 77 77 Respiratory Rate 17 17 Blood Pressure 95/49 L 86/53 L Pulse
[2021-12-14] MEDS: ALBUMIN HUMAN 25% 25 GM/100 ML 100 ML IVPB ×2 (11:22→17:56)
[2021-12-14 11:33] LABS: Glucose Point of Care 171 mg/dl (65-105)
--- NOTE | 2021-12-14 12:03 | PM.IMPN ---
Progress Note: A&P Assessment and Plan (1) Acute kidney injury superimposed on chronic kidney disease: Code(s): N17.9 - Acute kidney failure, unspecified; N18.9 - Chronic kidney disease, unspecified Status: Acute Assessment and Plan: Most likely multifactorial including dehydration from diarrhea as well as advancing kidney disease. Nephrology Consul, monitor labs -question need for hemodialysis. -possible progression chronic kidney disease (2) Acute hyperkalemia: Code(s): E87.5 - Hyperkalemia Status: Acute Assessment and Plan: Monitor (3) Acidosis: Code(s): E87.2 - Acidosis Status: Acute Assessment and Plan: Metabolic. Complicated by renal failure. (4) UTI (urinary tract infection): Code(s): N39.0 - Urinary tract infection, site not specified Status: Acute Assessment and Plan: Negative urine cultures. (5) Weakness: Code(s): R53.1 - Weakness Status: Acute Assessment and Plan: Question etiology. Likely related to worsening kidney function and uremia. Being managed per Nephrology (6) Hyponatremia: Code(s): E87.1 - Hypo-osmolality and hyponatremia Status: Acute Assessment and Plan: Likely secondary to the decreased p.o. intake and also renal dysfunction. Plan If cultures negative can Dc antibiotics Additional Plan This morning patient was more somnolent and his BP was soft, his stool was black, no esperanza bleeding, patient was given NS 500 bolus which did improve his BP, gave another 500cc bolus, his HGB dropped to 9.8 today from 14.1 on 12/10, RBC tag scan showed Active gastrointestinal bleed which appears to originate in the proximal duodenum in the right upper quadrant which suggests possibility of peptic ulcer disease. Consider endoscopy for further evaluation. D/W Dr. Stark, will give 2 units of PRBC, 1 L of NS bolus, PPI drip, and transferred to ICU, will Check hgb q4 hours, Called Dr. Odonnell, no answer and sent a text with information, will monitor, will Keep patient NPO. 12/13/2021 interval history: on 12/11 patient hemoglobin dropped to 5.6 patient was taken to GI lab had a EGD and patient had a bleeding duodenal ulcer which was cauterized and clipped patient was transferred to ICU. patient was found to elevated INR 1.9 though is not on any anticoagulation, most likely secondary to liver disease, patient was also given FFP, his hemoglobin is stable and not requiring any more transfusion, patient states is feeling little better compared to when he arrived, will continue to monitor patient is seen by battery assembler plastic and GI further recommendation to follow. 12/14/2021 interval history: on 12/11 patient hemoglobin dropped to 5.6 patient was taken to GI lab had a EGD and patient had a bleeding duodenal ulcer which was cauterized and clipped patient was transferred to ICU. patient was found to elevated INR 1.9 though he is not on any anticoagulation, most likely secondary to liver disease, patient was also given FFP, his hemoglobin is stable and not requiring any more transfusion, D/W intensitivist, patient BP is improving he on norepine 2mcg per min plan is to wean the patient, also he is wheezing bronchodilators, currently patient is somnolent, will continue to monitor patient is seen by battery assembler plastic and GI further recommendation to follow. Subjective Date/time seen: 12/14/21 12:03 12/14/2021 interval history: on 12/11 patient hemoglobin dropped to 5.6 patient was taken to GI lab had a EGD and patient had a bleeding duodenal ulcer which was cauterized and clipped patient was transferred to ICU. patient was found to elevated INR 1.9 though he is not on any anticoagulation, most likely secondary to liver disease, patient was also given FFP, his hemoglobin is stable and not requiring any more transfusion, D/W intensitivist, patient BP is improving he on norepine 2mcg per min plan is to wean the patient, also he is
[2021-12-14] MEDS: HYDROCORTISONE SODIUM SUCCINATE 100 MG/2 ML VIAL IV PUSH ×2 (13:03→20:48)
[2021-12-14 15:26] LABS: Glucose Point of Care 208 mg/dl (65-105)
[2021-12-14] MEDS: INSULIN ASPART (*BKC) 100 UNITS/ML SUB-Q (16:03)
[2021-12-14] MEDS: NOREPINEPHRINE 8 MG/D5W 250 ML 8 MG/250 ML BAG 3.75 MG IV CONT (17:55)
[2021-12-14 20:59] LABS: Glucose Point of Care 215 mg/dl (65-105)
[2021-12-15] VITALS (43 sets, daily range): BP systolic 86–127; BP diastolic 34–64; PULSE 65–96; RESP 11–22; TEMP 35.9–36.8; O2SAT 91–100; BMI 25.2
[2021-12-15] MEDS: ALBUMIN HUMAN 25% 25 GM/100 ML 100 ML IVPB ×2 (00:12→05:22)
[2021-12-15] MEDS: IPRATROPIUM BR 0.02% INH SOLN 0.5 MG/2.5 ML VIAL INHALATION ×3 (02:16→19:50)
[2021-12-15] MEDS: ALBUTEROL SULFATE NEB 2.5 MG/3 ML INH INHALATION ×3 (02:16→19:50)
[2021-12-15 04:44] LABS: Mean Corpuscular HGB Conc 33.3 g/dl (32-36); Mean Corpuscular Hemoglobin 30.1 pg (26-34); Mean Corpuscular Volume 90.2 fl (80-100); Mean Platelet Volume 10.1 fl (7.4-10.4); Platelet Count Result 63 k/mm3 (150-375); Red Blood Count 1.73 M/mm3 (4.6-6.20); Red Cell Distribution Width 14.1 % (11.5-14.5); White Blood Count 7.7 K/mm3 (4.5-10.0)
[2021-12-15 04:48] LABS: Hemoglobin 5.2 g/dL (14.0-18.0)
[2021-12-15 04:49] LABS: Hematocrit 15.6 % (42.0-52.0)
[2021-12-15 05:02] LABS: Albumin Level 3.5 g/dL (3.5-5.1)
[2021-12-15 05:08] LABS: Alanine Aminotransferase 18 U/L (6-50); Alkaline Phosphatase 57 U/L (38-126); Anion Gap 16 mmol/L (8-16); Aspartate Amino Transferase 20 U/L (17-59); Bilirubin,Total 0.3 mg/dL (0.2-1.3); Calcium 7.4 mg/dL (8.4-10.2); Carbon Dioxide 20 mmol/L (22-30); Chloride 100 mmol/L (98-107); Estimated CRCL calculation 11 ml/min; Estimated Glomerular Filt Rate 12; Glucose 262 mg/dL (65-110); Magnesium 1.7 mg/dL (1.6-2.3); Potassium 4.4 mmol/L (3.4-5.0); Sodium 136 mmol/L (137-145)
[2021-12-15 05:10] LABS: Blood Urea Nitrogen 128 mg/dL (9-20)
[2021-12-15] MEDS: HYDROCORTISONE SODIUM SUCCINATE 100 MG/2 ML VIAL IV PUSH ×3 (05:23→21:45)
[2021-12-15] MEDS: CENTRAL LINE FLUSH 10 ML IV PUSH ×4 (05:23→21:45)
[2021-12-15] MEDS: SODIUM CHLORIDE 0.9% IV 250 ML 30 ML IV CONT (07:19)
[2021-12-15] MEDS: INSULIN ASPART (*BKC) 100 UNITS/ML SUB-Q ×3 (07:20→17:47)
[2021-12-15] MEDS: MIDODRINE HCL 10 MG TABLET PO ×2 (07:26→15:20)
[2021-12-15] MEDS: TIMOLOL MALEATE 0.5% OP SOLN 5 ML BOTTLE 1 DROP LEFT EYE ×2 (07:26→16:37)
[2021-12-15] MEDS: PANTOPRAZOLE SODIUM IV 40 MG VIAL IV PUSH ×2 (07:26→21:45)
[2021-12-15] MEDS: ROSUVASTATIN 10 MG TABLET 40 MG PO (07:26)
[2021-12-15 07:34] LABS: Glucose Point of Care 281 mg/dl (65-105)
[2021-12-15] MEDS: FLUTICASONE/SALMETEROL 230-21 MCG INHALER 1 PUFF 2 PUFF INHALATION ×2 (08:19→19:52)
[2021-12-15] MEDS: SODIUM CHLORIDE 0.9% IV 500 ML IV CONT (08:24)
[2021-12-15] MEDS: MAGNESIUM SULF 2 GM/WATER 50ML 2 GM/50 ML BAG IVPB (08:24)
--- NOTE | 2021-12-15 08:24 | WPDINTPN ---
Progress Note: A&P Assessment and Plan (1) Gastrointestinal bleeding: Code(s): K92.2 - Gastrointestinal hemorrhage, unspecified Status: Acute Assessment and Plan: Status post EGD which showed esophagitis gastritis and duodenal ulcer. Duodenal ulcer was injected with epinephrine cauterized and clipped He received 4 units of PRBC and 2 units of FFP for coagulopathy which was ordered by GI Hemoglobin appears to be stable in the range of 8 now for last 2 days INR is 1.3 this morning Hemoglobin dropped to 5.2 this morning and patient also had 1 bowel movement with blood in it Will transfuse 2 units of PRBC Q.6 are hemoglobin monitoring Discussed with Dr. Odonnell with Gastroenterology he will plan to repeat EGD today Continue monitoring but less frequently at this time Continue PPI infusion to IV q.12 hours NPO (2) Acute kidney injury superimposed on chronic kidney disease: Code(s): N17.9 - Acute kidney failure, unspecified; N18.9 - Chronic kidney disease, unspecified Status: Acute Assessment and Plan: Patient is being followed by Nephrology who is managing workup for his acute kidney injury BUN is disproportionately elevated as compared to creatinine secondary to GI bleed His BUN is improving today and creatinine is stable. He has good urine output and potassium is in normal range Will defer workup and non emergent management to Nephrology Hold diuretics as patient is on Levophed and also has good urine output without any diuretics His getting 500 mL normal saline bolus for his hypertension (3) Shock: Code(s): R57.9 - Shock, unspecified Status: Acute Assessment and Plan: Hemorrhagic and hypovolemic shock secondary to upper GI bleed Patient was given 2 L fluid bolus followed by 4 units of PRBC transfusion 12/12 central venous catheter was emergently placed and patient was started on Levophed for blood pressure support Patient continues to require low-dose Levophed to maintain his mean arterial pressure. Continue Levophed titration to maintain mean arterial pressure 12/13 patient was given 2 units of FFP by GI He has been off of IV fluids but I will give 500 normal saline bolus at this time due to drop in blood pressure likely from his GI bleed He has been receiving 25% albumin Continue midodrine Continue hydrocortisone (4) Duodenal ulcer: Code(s): K26.9 - Duodenal ulcer, unspecified as acute or chronic, without hemorrhage or perforation Status: Acute Assessment and Plan: See above (5) Gastritis: Code(s): K29.70 - Gastritis, unspecified, without bleeding Status: Acute Assessment and Plan: See above (6) Esophagitis: Code(s): K20.90 - Esophagitis, unspecified without bleeding Status: Acute Assessment and Plan: See above (7) Hyperglycemia: Code(s): R73.9 - Hyperglycemia, unspecified Status: Acute Assessment and Plan: Continue sliding scale but hold Lantus until p.o. diet is back to baseline (8) Electrolyte abnormality: Code(s): E87.8 - Other disorders of electrolyte and fluid balance, not elsewhere classified Status: Acute Assessment and Plan: Replace low calcium (9) Metabolic acidosis: Code(s): E87.2 - Acidosis Status: Acute Assessment and Plan: Improved with bicarb (10) Coagulopathy: Code(s): D68.9 - Coagulation defect, unspecified Status: Acute Assessment and Plan: He received 2 units of FFP and 10 mg of vitamin K INR 1.3 and fibrinogen level is adequate this morning (11) UTI (urinary tract infection): Code(s): N39.0 - Urinary tract infection, site not specified Status: Acute Assessment and Plan: His UA was abnormal culture was negative. He will Complete a 5 day course of antibiotic 12/13 (12) Cellulitis: Code(s): L03.90 - Cellulitis, unspecified Status: Acute Assessment and Plan: [facility]
--- NOTE | 2021-12-15 10:03 | P.PNNP_ITS ---
Progress Note: A&P Assessment and Plan (1) HARRISON (acute kidney injury): Code(s): N17.9 - Acute kidney failure, unspecified Status: Acute Assessment and Plan: * suspect several issues: * hemodynamic instability * GI bleed/anemia * infection(?) * evaluation to date: * renal ultrasound without obstruction * urine culture shows mixed urogenital abhi * urine electrolytes are non pre renal * nephrotic range proteinuria noted * CPK normal * KENDAL, sed rate, and complements; kappa/lambda ratio is normal but serum immu nofixation shows a positive IgG monoclonal; urine immunofixation pending * creatinine relatively stable * BUN elevated but partly due to GI bleed and catabolic state * no critical electrolytes noted and reasonable urine output - 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 for [employer]/dialysis at this time * follow trend of repeat labs and UOP (2) Stage 3b chronic kidney disease: Code(s): N18.32 - Chronic kidney disease, stage 3b Status: Acute Assessment and Plan: * creatinine seems to have been running 1.4 - 1.9mg/dl since 2019 * presumably due to HTN, DM, vascular disease, age * however, positive serum immunofixation noted * he probably need a renal biopsy when he is more stable (3) Gastrointestinal bleeding: Code(s): K92.2 - Gastrointestinal hemorrhage, unspecified Status: Acute Assessment and Plan: * status post EGD * esophagitis, gastritis and duodenal ulcer * duodenal ulcer was injected with epinephrine cauterized and clipped * s/p mutiple PRBC and FFP transfusions * hemoglobin dropped to 5.2 this AM and bloody BM noted this AM * PRBC per protocol and serial H/Hs * GI following - repeat EGD planned today * on PPI (4) Shock: Code(s): R57.9 - Shock, unspecified Status: Acute Assessment and Plan: * due to hemorrhagic and hypovolemic shock secondary to upper GI bleed * IVFs, pressors, and blood product transfusions as needed for support * on midodrine and hydrocortisone as well (5) Cellulitis: Code(s): L03.90 - Cellulitis, unspecified Status: Acute Assessment and Plan: * suspected on left foot * clinical improvement noted with interventions * continue supportive therapy Long and extensive discussion (> 20 minutes) with at bedside regarding the above issues/problems including his renal dysfunction as well as the plan of care as outlined above. Will continue to follow. Subjective Date/time seen: 12/15/21 10:03 Chart reviewed - assuming care from Dr. Dillard; remains on levophed to maintain MAP; noted to have bloody bowel movement this AM associated with a drop in H/H as well; however, he does not report any acute issues or complaints; at bedside and we discussed the situation. Exam Narrative: General: WD/WN male in NAD Heart: normal S1 and S2; no rub Lungs: clear to auscultation Abdomen: soft, nontender, nondistended, positive bowel sounds; urostomy in right lower quadrant Extremities: no cyanosis or clubbing; no edema Skin: warm and dry Objective Data Vital Signs Vital Signs: Vital Signs Temp Pulse Resp BP Pulse Ox O2 Del Method O2 Flow Rate 12/15/21 08:32 36.6 C 80 12 114/48 L 98 12/15/21 08:30 76 16 12/15/21 08:20 93 12
--- NOTE | 2021-12-15 10:03 | PM.PNNEP ---
Progress Note: A&P Assessment and Plan (1) HARRISON (acute kidney injury): Code(s): N17.9 - Acute kidney failure, unspecified Status: Acute Assessment and Plan: suspect several issues: hemodynamic instability GI bleed/anemia infection(?) evaluation to date: renal ultrasound without obstruction urine culture shows mixed urogenital abhi urine electrolytes are non pre renal nephrotic range proteinuria noted CPK normal KENDAL, sed rate, and complements; kappa/lambda ratio is normal but serum immunofixation shows a positive IgG monoclonal; urine immunofixation pending creatinine relatively stable BUN elevated but partly due to GI bleed and catabolic state no critical electrolytes noted and reasonable urine output - 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/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 at this time follow trend of repeat labs and UOP (2) Stage 3b chronic kidney disease: Code(s): N18.32 - Chronic kidney disease, stage 3b Status: Acute Assessment and Plan: creatinine seems to have been running 1.4 - 1.9mg/dl since 2019 presumably due to HTN, DM, vascular disease, age however, positive serum immunofixation noted he probably need a renal biopsy when he is more stable (3) Gastrointestinal bleeding: Code(s): K92.2 - Gastrointestinal hemorrhage, unspecified Status: Acute Assessment and Plan: status post EGD esophagitis, gastritis and duodenal ulcer duodenal ulcer was injected with epinephrine cauterized and clipped s/p mutiple PRBC and FFP transfusions hemoglobin dropped to 5.2 this AM and bloody BM noted this AM PRBC per protocol and serial H/Hs GI following - repeat EGD planned today on PPI (4) Shock: Code(s): R57.9 - Shock, unspecified Status: Acute Assessment and Plan: due to hemorrhagic and hypovolemic shock secondary to upper GI bleed IVFs, pressors, and blood product transfusions as needed for support on midodrine and hydrocortisone as well (5) Cellulitis: Code(s): L03.90 - Cellulitis, unspecified Status: Acute Assessment and Plan: suspected on left foot clinical improvement noted with interventions continue supportive therapy Long and extensive discussion (> 20 minutes) with at bedside regarding the above issues/problems including his renal dysfunction as well as the plan of care as outlined above. Will continue to follow. Subjective Date/time seen: 12/15/21 10:03 Chart reviewed - assuming care from Dr. Gilma; remains on levophed to maintain MAP; noted to have bloody bowel movement this AM associated with a drop in H/H as well; however, he does not report any acute issues or complaints; at bedside and we discussed the situation. Exam Narrative: General: WD/WN male in NAD Heart: normal S1 and S2; no rub Lungs: clear to auscultation Abdomen: soft, nontender, nondistended, positive bowel sounds; urostomy in right lower quadrant Extremities: no cyanosis or clubbing; no edema Skin: warm and dry Objective Data Vital Signs Vital Signs: Vital Signs Temp Pulse Resp BP Pulse Ox O2 Del Method O2 Flow Rate 12/15/21 08:32 36.6 C 80 12 114/48 L 98 12/15/21 08:30 76 16 12/15/21 08:20 93 12 12/15/21 08:19 80 14 95 Nasal Cannula 3 12/15/21 08:16 36.6 C 85 17 105/41 L 96 12/15/21 07:32 96 89/41 L 12/15/21 06:35 77 89/34 L 12/15/21 06:00 79 14 101/45 L 96 12/15/21 06:00 79 12/15/21 05:43 79 86/38 L 12/15/21 04:00 70 12/15/21 04:00 36.6 C 76 16 91/47 L 98 12/15/21 04:00 98 Nasal Cannula 3 12/15/21 00:00 70 102/49 L 12/15/21 02:51 68 14 12/15/21 02:35 68 16 12/15/21 02:00 65 11 L 101/47 L 100 12/15/21 02:00 65 12/15/21 00:00 68 12/15/21 00:00 36.4 C 70 17 102/49 L 97 12/15/21 00:00 97 Nasal Cannula 3 12/14/21 22:00 70 17 96/
[2021-12-15 14:13] LABS: Hematocrit 21.8 % (42.0-52.0); Hemoglobin 7.4 g/dL (14.0-18.0)
--- NOTE | 2021-12-15 14:28 | PHAR ---
Afternoon medications administered late due to bedside EGD
[2021-12-15] MEDS: EPINEPHrine INJ 1 MG/10 ML SYRINGE 0.4 MG XX (14:55)
[2021-12-15 15:20] LABS: Glucose Point of Care 245 mg/dl (65-105)
[2021-12-15 17:11] LABS: Glucose Point of Care 316 mg/dl (65-105)
--- NOTE | 2021-12-15 18:04 | P.PNIM_ITS ---
Progress Note: A&P Assessment and Plan (1) Acute kidney injury superimposed on chronic kidney disease: Code(s): N17.9 - Acute kidney failure, unspecified; N18.9 - Chronic kidney disease, unspecified Status: Acute Assessment and Plan: Most likely multifactorial including dehydration from diarrhea as well as advancing kidney disease. Nephrology Consul, monitor labs -question need for hemodialysis. -possible progression chronic kidney disease (2) Acute hyperkalemia: Code(s): E87.5 - Hyperkalemia Status: Acute Assessment and Plan: Monitor (3) Acidosis: Code(s): E87.2 - Acidosis Status: Acute Assessment and Plan: Metabolic. Complicated by renal failure. (4) UTI (urinary tract infection): Code(s): N39.0 - Urinary tract infection, site not specified Status: Acute Assessment and Plan: Negative urine cultures. (5) Weakness: Code(s): R53.1 - Weakness Status: Acute Assessment and Plan: Question etiology. Likely related to worsening kidney function and uremia. Being managed per Nephrology (6) Hyponatremia: Code(s): E87.1 - Hypo-osmolality and hyponatremia Status: Acute Assessment and Plan: Likely secondary to the decreased p.o. intake and also renal dysfunction. Plan If cultures negative can Dc antibiotics Additional Plan This morning patient was more somnolent and his BP was soft, his stool was black, no esperanza bleeding, patient was given NS 500 bolus which did improve his BP, gave another 500cc bolus, his HGB dropped to 9.8 today from 14.1 on 12/10, RBC tag scan showed Active gastrointestinal bleed which appears to originate in the proximal duodenum in the right upper quadrant which suggests possibility of peptic ulcer disease. Consider endoscopy for further evaluation. D/W Dr. Stark, will give 2 units of PRBC, 1 L of NS bolus, PPI drip, and transferred to ICU, will Check hgb q4 hours, Called Dr. Odonnell, no answer and sent a text with information, will monitor, will Keep patient NPO. 12/13/2021 interval history: on 12/11 patient hemoglobin dropped to 5.6 patient was taken to GI lab had a EGD and patient had a bleeding duodenal ulcer which was cauterized and clipped patient was transferred to ICU. patient was found to elevated INR 1.9 though is not on any anticoagulation, most likely secondary to liver disease, patient was also given FFP, his hemoglobin is stable and not requiring any more transfusion, patient states is feeling little better compared to when he arrived, will continue to monitor patient is seen by training and development director and GI further recommendation to follow. 12/14/2021 interval history: on 12/11 patient hemoglobin dropped to 5.6 patient was taken to GI lab had a EGD and patient had a bleeding duodenal ulcer which was cauterized and clipped patient was transferred to ICU. patient was found to elevated INR 1.9 though he is not on any anticoagulation, most likely secondary to liver disease, patient was also given FFP, his hemoglobin is stable and not requiring any more transfusion, D/W intensitivist, patient BP is improving he on norepine 2mcg per min plan is to wean the patient, also he is wheezing bronchodilators, currently patient is somnolent, will continue to monitor patient is seen by training and development director and GI further recommendation to follow. 12/15/2021 interval history: on 12/11 patient hemoglobin dropped to 5.6 patient was taken to GI lab had a EGD and patient had a bleeding duodenal ulcer which was cauterized and clipped patient was transferred to ICU. patient was found to elevated INR 1.9 though he is not on any anticoagulation,
[2021-12-15 20:03] LABS: Glucose Point of Care 175 mg/dl (65-105)
[2021-12-15 20:26] LABS: Hematocrit 20.8 % (42.0-52.0)
[2021-12-15] MEDS: ACETAMINOPHEN 325 MG TABLET 650 MG PO (22:25)
[2021-12-16] VITALS (37 sets, daily range): BP systolic 75–121; BP diastolic 37–59; PULSE 65–91; RESP 5–24; TEMP 36.3–36.9; O2SAT 85–100
[2021-12-16] MEDS: INSULIN ASPART (*BKC) 100 UNITS/ML SUB-Q ×3 (00:05→12:33)
[2021-12-16 00:06] LABS: Glucose Point of Care 212 mg/dl (65-105)
[2021-12-16] MEDS: IPRATROPIUM BR 0.02% INH SOLN 0.5 MG/2.5 ML VIAL INHALATION ×4 (02:39→19:46)
[2021-12-16] MEDS: ALBUTEROL SULFATE NEB 2.5 MG/3 ML INH INHALATION ×4 (02:39→19:45)
[2021-12-16 03:34] LABS: Hematocrit 22.3 % (42.0-52.0); Hemoglobin 7.5 g/dL (14.0-18.0); Immature Platelet Fraction Pct 6.7 % (0.9-11.2); Mean Corpuscular HGB Conc 33.6 g/dl (32-36); Mean Corpuscular Hemoglobin 29.6 pg (26-34); Mean Corpuscular Volume 88.1 fl (80-100); Mean Platelet Volume 10.2 fl (7.4-10.4); Platelet Count Result 65 k/mm3 (150-375); Red Blood Count 2.53 M/mm3 (4.6-6.20); Red Cell Distribution Width 14.1 % (11.5-14.5); White Blood Count 10.4 K/mm3 (4.5-10.0)
[2021-12-16 03:44] LABS: Alanine Aminotransferase 15 U/L (6-50); Albumin Level 2.8 g/dL (3.5-5.1); Alkaline Phosphatase 59 U/L (38-126); Anion Gap 13 mmol/L (8-16); Aspartate Amino Transferase 20 U/L (17-59); Bilirubin,Total 0.3 mg/dL (0.2-1.3); Carbon Dioxide 19 mmol/L (22-30); Chloride 104 mmol/L (98-107); Glucose 193 mg/dL (65-110); Magnesium 2.2 mg/dL (1.6-2.3); Potassium 3.8 mmol/L (3.4-5.0); Sodium 136 mmol/L (137-145)
[2021-12-16 03:53] LABS: Estimated CRCL calculation 12 ml/min; Estimated Glomerular Filt Rate 13
[2021-12-16 03:56] LABS: Blood Urea Nitrogen 132 mg/dL (9-20)
[2021-12-16] MEDS: CENTRAL LINE FLUSH 10 ML IV PUSH ×4 (05:31→21:19)
[2021-12-16] MEDS: HYDROCORTISONE SODIUM SUCCINATE 100 MG/2 ML VIAL IV PUSH ×3 (05:31→21:19)
--- NOTE | 2021-12-16 07:25 | WPDGIPROGNO ---
Progress Note: A&P Assessment and Plan (1) Gastrointestinal bleeding: Code(s): K92.2 - Gastrointestinal hemorrhage, unspecified Status: Acute Assessment and Plan: he began seen blood in his stools yesterday. His states that it was dark red primarily. His hemoglobin dropped by over 4 g. he will have a tag red blood cell scan shortly. I told that depending on the results he may need EGD and/or colonoscopy tomorrow. Hopefully this can will localize source of bleeding. If not we will perform both upper and lower gastrointestinal endoscopy. I discussed the procedures with him and his and also discussed the prep and risks. 12/12/2021 since endoscopy and cautery of his ulcer, his blood counts have come up. Hemoglobin now over 13. This is likely to drop somewhat with equal aeration. His blood pressure has improved as we have been able to taper his pressors . I will start him on clear liquid diet. will continue to monitor with serial H&H. 12/13/21 he had dark stools yesterday and during the night but none so far today. It appears that the bleeding has stopped. I discussed his situation with his family. I told that if his counts are stable we will advance his diet. 12/16/2021 no stools at this morning. Last hemoglobin is 7.5. He denies abdominal pain. No emesis. Although he is hungry, I told he needs to stay on a clear liquid diet. (2) Acute anemia: Code(s): D64.9 - Anemia, unspecified Status: Acute Assessment and Plan: He has never been anemic before. As noted, his hemoglobin was 14.1 yesterday and had been in normal range recently. He does not recall ever being treated for anemia in the past. 12/12/2021 total of 4 units of red blood cells have been given. 12/13/2021 no further blood has been needed so far. He did receive FFP to bring his INR down 12/16/2021 will recheck INR this morning, he may need more FFP (3) Acute kidney injury superimposed on chronic kidney disease: Code(s): N17.9 - Acute kidney failure, unspecified; N18.9 - Chronic kidney disease, unspecified Status: Acute Assessment and Plan: His BUN was 62 weeks ago and now is over 130. Likewise creatinine has increased from 1.5 2 weeks ago to 4.0 today he is being followed by Nephrology for acute chronic kidney failure 12/13/2021 BUN is down today. Part of his elevation was likely due to his gastrointestinal bleeding. (4) Bullous pemphigoid: Code(s): L12.0 - Bullous pemphigoid Status: Acute Assessment and Plan: he has had this condition for a long time. He states that he had been on prednisone, steroids for long time which is why he has chronic ecchymoses of his skin. He had finally got off the prednisone but recently did take a short course for a flare up and because of his COPD. (5) Ecchymosis: Code(s): R58 - Hemorrhage, not elsewhere classified Status: Acute Assessment and Plan: severe ecchymoses of the upper extremities which are not new and he believes secondary to long-term steroid therapy. He has not had any active bleeding from his extremities. (6) Hypotension: Code(s): I95.9 - Hypotension, unspecified Status: Acute Assessment and Plan: systolic pressure was below 100 most of the evening but has improved and now his norepinephrine drip has been tapered down to 7 mics. 12/13/2021 vasopressors continue to be tapered. 12/16/2021. There are been Afrin drip being tapered off, currently at 1 meghan /minute Subjective Date/time seen: 12/16/21 07:25 After having been stable over the weekend, his hemoglobin suddenly dropped to 5.2 Wednesday night, early Wednesday morning and he had had dark melena type stools. EGD yesterday showed that the ulcer base was a little broader but there was no active spurting, only a trace of old blood in the distal duodenum. I reinjected the ulcer base with epinephrine, 4 mL and applied cautery to an edge t
[2021-12-16] MEDS: FLUTICASONE/SALMETEROL 230-21 MCG INHALER 1 PUFF 2 PUFF INHALATION ×2 (08:22→19:45)
[2021-12-16] MEDS: CALCIUM GLUC 2,000 MG/NS 100ML 2,000 MG/100 ML BAG 100 MG IVPB (08:33)
[2021-12-16] MEDS: SODIUM BICARBONATE TAB 650 MG TABLET PO (08:33)
[2021-12-16] MEDS: PANTOPRAZOLE SODIUM IV 40 MG VIAL IV PUSH (08:35)
[2021-12-16] MEDS: MIDODRINE HCL 10 MG TABLET PO ×2 (08:35→12:24)
[2021-12-16] MEDS: ROSUVASTATIN 10 MG TABLET 40 MG PO (08:35)
[2021-12-16] MEDS: TIMOLOL MALEATE 0.5% OP SOLN 5 ML BOTTLE 1 DROP LEFT EYE ×2 (08:36→17:37)
[2021-12-16 08:45] LABS: Glucose Point of Care 289 mg/dl (65-105)
[2021-12-16] MEDS: INSULIN GLARGINE (*BKC) 100 UNITS/ML 10 UNITS SUB-Q (08:54)
[2021-12-16 09:01] LABS: INR 1.3; Prothrombin Time 15.6 Seconds (11.1-14.7)
--- NOTE | 2021-12-16 09:43 | WPDINTPN ---
Progress Note: A&P Assessment and Plan (1) Gastrointestinal bleeding: Code(s): K92.2 - Gastrointestinal hemorrhage, unspecified Status: Acute Assessment and Plan: Status post EGD which showed esophagitis gastritis and duodenal ulcer. Duodenal ulcer was injected with epinephrine cauterized and clipped He received 4 units of PRBC and 2 units of FFP for coagulopathy which was ordered by GI Hemoglobin appears to be stable in the range of 8 now for last 2 days INR is 1.3 this morning 12/15 Hemoglobin dropped to 5.2 this morning and patient also had 1 bowel movement with blood in it Patient was transfused 2 units of PRBC before EGD and 1 unit later in the evening EGD showed reflux esophagitis single crater duodenal ulcer which was injected with epinephrine and cauterized. H pylori came back negative GI following Continue monitoring but less frequently at this time Continue PPI infusion to IV q.12 hours on clear liquid diet per GI (2) Acute kidney injury superimposed on chronic kidney disease: Code(s): N17.9 - Acute kidney failure, unspecified; N18.9 - Chronic kidney disease, unspecified Status: Acute Assessment and Plan: Patient is being followed by Nephrology who is managing workup for his acute kidney injury BUN is disproportionately elevated as compared to creatinine secondary to GI bleed His urine output is adequate and creatinine is elevated but stable. his potassium is in normal range and despite elevated BUN he is alert oriented x3 nephrology wants to get kidney biopsy but patient has been unstable due to his GI bleeding. I have discussed case with Dr. Shabazz. He does not plan for hemodialysis at this point. I will defer workup and non emergent management to Nephrology Hold diuretics as patient is on Levophed and also has good urine output without any diuretics I will add resume albumin due to his low blood pressure (3) Shock: Code(s): R57.9 - Shock, unspecified Status: Acute Assessment and Plan: Hemorrhagic and hypovolemic shock secondary to upper GI bleed Patient was given 2 L fluid bolus followed by 4 units of PRBC transfusion 12/12 central venous catheter was emergently placed and patient was started on Levophed for blood pressure support Patient continues to require verylow-dose Levophed to maintain his mean arterial pressure. Continue Levophed titration to maintain mean arterial pressure 12/13 patient was given 2 units of FFP by GI He has been off of IV fluids but I will give 500 normal saline bolus at this time due to drop in blood pressure likely from his GI bleed He has been receiving 25% albumin which I will resume Continue midodrine Continue hydrocortisone (4) Duodenal ulcer: Code(s): K26.9 - Duodenal ulcer, unspecified as acute or chronic, without hemorrhage or perforation Status: Acute Assessment and Plan: See above (5) Gastritis: Code(s): K29.70 - Gastritis, unspecified, without bleeding Status: Acute Assessment and Plan: See above (6) Esophagitis: Code(s): K20.90 - Esophagitis, unspecified without bleeding Status: Acute Assessment and Plan: See above (7) Hyperglycemia: Code(s): R73.9 - Hyperglycemia, unspecified Status: Acute Assessment and Plan: Continue sliding scale and resume Lantus (8) Electrolyte abnormality: Code(s): E87.8 - Other disorders of electrolyte and fluid balance, not elsewhere classified Status: Acute Assessment and Plan: Replace low calcium (9) Metabolic acidosis: Code(s): E87.2 - Acidosis Status: Acute Assessment and Plan: continue bicarb (10) Coagulopathy: Code(s): D68.9 - Coagulation defect, unspecified Status: Acute Assessment and Plan: He received 2 units of FFP and 10 mg of vitamin K INR 1.3 and fibrinogen level is adequate this morning (11) UTI (urinary tract infection): Cod
--- NOTE | 2021-12-16 10:02 | P.PNNP_ITS ---
Progress Note: A&P Assessment and Plan (1) HARRISON (acute kidney injury): Code(s): N17.9 - Acute kidney failure, unspecified Status: Acute Assessment and Plan: * suspect several issues: * hemodynamic instability * GI bleed/anemia * infection(?) * evaluation to date: * renal ultrasound without obstruction * urine culture shows mixed urogenital abhi * urine electrolytes are non pre renal * nephrotic range proteinuria noted * CPK normal * KENDAL, sed rate, and complements; kappa/lambda ratio is normal but serum immu nofixation shows a positive IgG monoclonal; urine immunofixation pending * creatinine relatively stable * BUN elevated but partly due to GI bleed and catabolic state * no critical electrolytes noted and reasonable urine output - 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 at 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 time but may need to consider if uremia/platelet dysfunction contributing to bleeding issues * follow trend of repeat labs and UOP (2) Stage 3b chronic kidney disease: Code(s): N18.32 - Chronic kidney disease, stage 3b Status: Acute Assessment and Plan: * creatinine seems to have been running 1.4 - 1.9mg/dl since 2019 * presumably due to HTN, DM, vascular disease, age * however, positive serum immunofixation noted * he probably need a renal biopsy when he is more stable (3) Gastrointestinal bleeding: Code(s): K92.2 - Gastrointestinal hemorrhage, unspecified Status: Acute Assessment and Plan: * status post EGD * esophagitis, gastritis and duodenal ulcer * duodenal ulcer was injected with epinephrine cauterized and clipped * s/p mutiple PRBC and FFP transfusions * hemoglobin dropped to 5.2 this AM and bloody BM noted this AM * PRBC per protocol and serial H/Hs * GI following - repeat EGD planned today * on PPI (4) Shock: Code(s): R57.9 - Shock, unspecified Status: Acute Assessment and Plan: * due to hemorrhagic and hypovolemic shock secondary to upper GI bleed * IVFs, pressors, and blood product transfusions as needed for support * on midodrine and hydrocortisone as well (5) Cellulitis: Code(s): L03.90 - Cellulitis, unspecified Status: Acute Assessment and Plan: * suspected on left foot * clinical improvement noted with interventions * continue supportive therapy Will continue to follow. Subjective Date/time seen: 12/16/21 10:02 S/P repeat EGD yesterday without any signs of active bleeding; still having bowel movements indicative of melena but further hematochezia noted; still requiring low dose levoped to maintain MAP/blood pressure; no acute complaints voiced; at bedside and we discussed the situation. Exam Narrative: General: WD/WN male in NAD Heart: normal S1 and S2; no rub Lungs: clear to auscultation Abdomen: soft, nontender, nondistended, positive bowel sounds; urostomy in right lower quadrant Extremities: no cyanosis or clubbing; no edema Skin: warm and dry Objective Data Vital Signs Vital Signs: Vital Signs Temp Pulse Resp BP Pulse Ox O2 Del Method O2 Flow Rate 12/16/21 08:00 36.4 C 80 18 93/51 L 91 12/16/21 08:00 80 12/16/21 08:00 92 Nasal Cannula 4 12/16/21 08:31 80 14 12/16/21 08:20 76 22 H 94 Nasal Cannula 5
--- NOTE | 2021-12-16 10:02 | PM.PNNEP ---
Progress Note: A&P Assessment and Plan (1) HARRISON (acute kidney injury): Code(s): N17.9 - Acute kidney failure, unspecified Status: Acute Assessment and Plan: suspect several issues: hemodynamic instability GI bleed/anemia infection(?) evaluation to date: renal ultrasound without obstruction urine culture shows mixed urogenital abhi urine electrolytes are non pre renal nephrotic range proteinuria noted CPK normal KENDAL, sed rate, and complements; kappa/lambda ratio is normal but serum immunofixation shows a positive IgG monoclonal; urine immunofixation pending creatinine relatively stable BUN elevated but partly due to GI bleed and catabolic state no critical electrolytes noted and reasonable urine output - 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 for 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/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 at this time but may need to consider if uremia/platelet dysfunction contributing to bleeding issues follow trend of repeat labs and UOP (2) Stage 3b chronic kidney disease: Code(s): N18.32 - Chronic kidney disease, stage 3b Status: Acute Assessment and Plan: creatinine seems to have been running 1.4 - 1.9mg/dl since 2019 presumably due to HTN, DM, vascular disease, age however, positive serum immunofixation noted he probably need a renal biopsy when he is more stable (3) Gastrointestinal bleeding: Code(s): K92.2 - Gastrointestinal hemorrhage, unspecified Status: Acute Assessment and Plan: status post EGD esophagitis, gastritis and duodenal ulcer duodenal ulcer was injected with epinephrine cauterized and clipped s/p mutiple PRBC and FFP transfusions hemoglobin dropped to 5.2 this AM and bloody BM noted this AM PRBC per protocol and serial H/Hs GI following - repeat EGD planned today on PPI (4) Shock: Code(s): R57.9 - Shock, unspecified Status: Acute Assessment and Plan: due to hemorrhagic and hypovolemic shock secondary to upper GI bleed IVFs, pressors, and blood product transfusions as needed for support on midodrine and hydrocortisone as well (5) Cellulitis: Code(s): L03.90 - Cellulitis, unspecified Status: Acute Assessment and Plan: suspected on left foot clinical improvement noted with interventions continue supportive therapy Will continue to follow. Subjective Date/time seen: 12/16/21 10:02 S/P repeat EGD yesterday without any signs of active bleeding; still having bowel movements indicative of melena but further hematochezia noted; still requiring low dose levoped to maintain MAP/blood pressure; no acute complaints voiced; at bedside and we discussed the situation. Exam Narrative: General: WD/WN male in NAD Heart: normal S1 and S2; no rub Lungs: clear to auscultation Abdomen: soft, nontender, nondistended, positive bowel sounds; urostomy in right lower quadrant Extremities: no cyanosis or clubbing; no edema Skin: warm and dry Objective Data Vital Signs Vital Signs: Vital Signs Temp Pulse Resp BP Pulse Ox O2 Del Method O2 Flow Rate 12/16/21 08:00 36.4 C 80 18 93/51 L 91 12/16/21 08:00 80 12/16/21 08:00 92 Nasal Cannula 4 12/16/21 08:31 80 14 12/16/21 08:20 76 22 H 94 Nasal Cannula 5 12/16/21 08:19 77 16 12/16/21 06:00 76 12 92/52 L 93 12/16/21 06:00 78 12/16/21 05:32 78 93/57 L 12/16/21 04:00 92 Nasal Cannula 4 12/16/21 04:00 66 12 96/55 L 92 12/16/21 04:00 66 12/16/21 03:23 68 81/49 L 12/16/21 02:47 66 15 12/16/21 02:39 69 18 12/16/21 02:10 69 98/55 L 12/16/21 02:00 68 11 L 98/55 L 99 12/16/21 02:00 68 12/16/21 00:58 36.4 C L 78 19 105/55 L 93 12/16/21 00:45 71 102/53 L 12/16/21 00:00 99 Nasal Cannula 5 12/16/21 00:00 72 12/16/21 00:03 72 113/55 L 12/15/21 23:58 36.3 C L 71 16 113/55 L 98 12/15/21 21:58
--- NOTE | 2021-12-16 11:59 | PCNFU ---
Nutrition Follow-Up Complete: Altered GI function as related to noted Gastritis as evidenced by NPO/EGD. Goal: Meet estimated nutritional needs. Patient is progressing towards goal. We will continue current goal. Pt current nutrition is Clear Liquids. Last recorded weight is 73.2 kg, stable Bowel Motility:urostomy Labs Reviewed:Ca 7.0.Cr 4.5,BUN 132, Na 136, Hct 22.3,Hgb 7.5 Meds Noted:Protonix,Sodium Bicarbonate, Crestor, Albuterol, NovoLog, Midodrine, Levophed, Atrovent, Lantus Skin: WNL Additional Notes: Patient had EGD yesterday, duodenal ulcer noted. Diet order has advanced to clear liquids, limited po intake. Ensure Clear on trays in providing an additional 240 kcals and 8 gms protein. PO intake is encouraged. Monitoring: Will monitor every 3 days.
[2021-12-16] MEDS: ALBUMIN HUMAN 25% 25 GM/100 ML 100 ML IVPB ×2 (12:18→18:02)
[2021-12-16 12:30] LABS: Glucose Point of Care 216 mg/dl (65-105)
[2021-12-16 12:57] LABS: Hematocrit 18.5 % (42.0-52.0); Hemoglobin 6.3 g/dL (14.0-18.0)
--- NOTE | 2021-12-16 13:21 | PM.EVENT ---
Event Note Event Note Event Note: Patient had another bloody bowel movement. Hemoglobin was checked and was 6.3 this afternoon. I ordered DDAVP and 2 units of PRBC transfusion for him. I spoke to Dr. Odonnell and he recommends repeating tagged RBC scan which I have ordered. I will also consult General surgery and discussed case with Dr. Chance and he will see the patient. Will monitor hemoglobin more frequently.
[2021-12-16] MEDS: SODIUM CHLORIDE 0.9% IV 250 ML 30 ML IV CONT ×2 (14:40→23:30)
--- NOTE | 2021-12-16 16:50 | PM.IMPN ---
Progress Note: A&P Assessment and Plan (1) Acute kidney injury superimposed on chronic kidney disease: Code(s): N17.9 - Acute kidney failure, unspecified; N18.9 - Chronic kidney disease, unspecified Status: Acute Assessment and Plan: Most likely multifactorial including dehydration from diarrhea as well as advancing kidney disease. Nephrology Consul, monitor labs -question need for hemodialysis. -possible progression chronic kidney disease (2) Acute hyperkalemia: Code(s): E87.5 - Hyperkalemia Status: Acute Assessment and Plan: Monitor (3) Acidosis: Code(s): E87.2 - Acidosis Status: Acute Assessment and Plan: Metabolic. Complicated by renal failure. (4) UTI (urinary tract infection): Code(s): N39.0 - Urinary tract infection, site not specified Status: Acute Assessment and Plan: Negative urine cultures. (5) Weakness: Code(s): R53.1 - Weakness Status: Acute Assessment and Plan: Question etiology. Likely related to worsening kidney function and uremia. Being managed per Nephrology (6) Hyponatremia: Code(s): E87.1 - Hypo-osmolality and hyponatremia Status: Acute Assessment and Plan: Likely secondary to the decreased p.o. intake and also renal dysfunction. Plan If cultures negative can Dc antibiotics Additional Plan This morning patient was more somnolent and his BP was soft, his stool was black, no esperanza bleeding, patient was given NS 500 bolus which did improve his BP, gave another 500cc bolus, his HGB dropped to 9.8 today from 14.1 on 12/10, RBC tag scan showed Active gastrointestinal bleed which appears to originate in the proximal duodenum in the right upper quadrant which suggests possibility of peptic ulcer disease. Consider endoscopy for further evaluation. D/W Dr. Stakr, will give 2 units of PRBC, 1 L of NS bolus, PPI drip, and transferred to ICU, will Check hgb q4 hours, Called Dr. Odonnell, no answer and sent a text with information, will monitor, will Keep patient NPO. 12/13/2021 interval history: on 12/11 patient hemoglobin dropped to 5.6 patient was taken to GI lab had a EGD and patient had a bleeding duodenal ulcer which was cauterized and clipped patient was transferred to ICU. patient was found to elevated INR 1.9 though is not on any anticoagulation, most likely secondary to liver disease, patient was also given FFP, his hemoglobin is stable and not requiring any more transfusion, patient states is feeling little better compared to when he arrived, will continue to monitor patient is seen by light armored vehicle officer and GI further recommendation to follow. 12/14/2021 interval history: on 12/11 patient hemoglobin dropped to 5.6 patient was taken to GI lab had a EGD and patient had a bleeding duodenal ulcer which was cauterized and clipped patient was transferred to ICU. patient was found to elevated INR 1.9 though he is not on any anticoagulation, most likely secondary to liver disease, patient was also given FFP, his hemoglobin is stable and not requiring any more transfusion, D/W intensitivist, patient BP is improving he on norepine 2mcg per min plan is to wean the patient, also he is wheezing bronchodilators, currently patient is somnolent, will continue to monitor patient is seen by light armored vehicle officer and GI further recommendation to follow. 12/15/2021 interval history: on 12/11 patient hemoglobin dropped to 5.6 patient was taken to GI lab had a EGD and patient had a bleeding duodenal ulcer which was cauterized and clipped patient was transferred to ICU. patient was found to elevated INR 1.9 though he is not on any anticoagulation, most likely secondary to liver disease, patient was also given FFP, his hemoglobin is stable and not requiring any more transfusion, however today his hemoglobin dropped to 5.2 and patient was again taken to EGD and showed bleeding ulcer, and epinephrine was applied to stop the bleeding will cont
[2021-12-16] MEDS: SUCRALFATE SUSP 100 MG/ML 10 ML UDC 1000 MG PO ×2 (17:23→21:19)
[2021-12-16 17:40] LABS: Glucose Point of Care 105 mg/dl (65-105)
[2021-12-16 17:43] LABS: Hematocrit 23.3 % (42.0-52.0); Hemoglobin 7.9 g/dL (14.0-18.0)
[2021-12-16 21:28] LABS: Glucose Point of Care 141 mg/dl (65-105)
[2021-12-16 22:05] LABS: Hematocrit 17.4 % (42.0-52.0); Hemoglobin 5.8 g/dL (14.0-18.0)
[2021-12-17] VITALS (29 sets, daily range): BP systolic 92–116; BP diastolic 38–66; PULSE 74–104; RESP 13–25; TEMP 35.8–37.6; O2SAT 88–100
--- NOTE | 2021-12-17 00:22 | PM.CNGS ---
Assessment and Plan Assessment and plan (1) Stage 3b chronic kidney disease: Code(s): N18.32 - Chronic kidney disease, stage 3b Status: Acute (2) Duodenal ulcer: Code(s): K26.9 - Duodenal ulcer, unspecified as acute or chronic, without hemorrhage or perforation Status: Acute Assessment and Plan: The patient has a known duodenal ulcer from EGD. However, after talking with Dr. Odonnell who twice over the last week when he has scoped the patient said there was not active bleeding at the duodenal ulcer. Of note the first nuclear medicine bleeding scan on I believe the 07 of December did show apparent signs of bleeding in the duodenum. However, the scan today it was simply stated that it was in the proximal small bowel or the transverse colon and proceeded toward the left. Dr. Odonnell interpreted this as perhaps a different site than the duodenal ulcer since he has seen that twice and there was no active bleeding either time & even though the patient had drop in hemoglobin there was not active bleeding. He is suspicious of another site of bleeding in view of the scan and the patient's continuing melena after intervention. ( EGD with cautery and epinephrine injection yesterday 12/15/2021). (3) HARRISON (acute kidney injury): Code(s): N17.9 - Acute kidney failure, unspecified Status: Acute (4) Hypotension: Code(s): I95.9 - Hypotension, unspecified Status: Acute Assessment and Plan: agree with continued support with mod ICU monitoring low-dose pressor as needed to maintain mean arterial pressure 60-65. Agree with further transfusion or to try to avoid significantly morbid surgical intervention with a laparotomy in a patient with multiple comorbidities. (5) Acute anemia: Code(s): D64.9 - Anemia, unspecified Status: Acute Assessment and Plan: Agree with transfusion and careful monitoring. Patient already on serial H&H is and a CBC each morning. (6) Gastrointestinal bleeding: Code(s): K92.2 - Gastrointestinal hemorrhage, unspecified Status: Acute Assessment and Plan: Unknown etiology it may be that this is another site other than the duodenal ulcer that is seen on Upper endoscopy. Because of his nuclear medicine bleeding scan today 12/16/2021 there appears to be continuing bleeding and attempts have been made to transfer him to where there would be a potential for arteriography and possible intravascular intervention since that is not available here. ( I did talk with the patient's and let her know that this was something that might be beneficial & would perhaps avoid having him have a large laparotomy incision). Apparently at this time the hospitalist has checked with both [facility] in [place] and with [facility] and beds are at a premium and full. Therefore, the patient has not been transferred. I would agree with transfer if it becomes available. For now would suggest resuming maximal medical therapy including continuous drip Protonix and around the clock p.o. Carafate since the patient is tolerating liquids and he is not vomiting. (Of note H pylori MARY test was negative at his last endoscopy on 12/16/2021). I have let the patient's know that a laparotomy would probably involve at least upper half of the abdomen midline incision and that it would be fairly painful after the surgery. If I had to do it now I would probably open the bulb of the duodenum and oversewed the duodenal ulcer and then do a exploration of the rest of the small bowel to see if there was signs of an abnormality that could cause bleeding. Patient's stated that he had never had a colonoscopy. However, review of his abdominal CT scan from earlier this admission does not mention any diverticuli. (7) On home oxygen therapy: Code(s): Z99.81 - Dependence on supplemental oxygen Status: Acute Assessment and Plan: Still on O
[2021-12-17] MEDS: ALBUMIN HUMAN 25% 25 GM/100 ML 100 ML IVPB ×3 (00:23→11:54)
[2021-12-17] MEDS: INSULIN ASPART (*BKC) 100 UNITS/ML SUB-Q ×4 (00:29→11:52)
[2021-12-17 00:30] LABS: Glucose Point of Care 243 mg/dl (65-105)
[2021-12-17 02:10] LABS: Hematocrit 18.6 % (42.0-52.0); Hemoglobin 6.3 g/dL (14.0-18.0)
[2021-12-17] MEDS: IPRATROPIUM BR 0.02% INH SOLN 0.5 MG/2.5 ML VIAL INHALATION ×2 (02:53→08:18)
[2021-12-17] MEDS: ALBUTEROL SULFATE NEB 2.5 MG/3 ML INH INHALATION ×2 (02:54→08:19)
[2021-12-17] MEDS: SUCRALFATE SUSP 100 MG/ML 10 ML UDC 1000 MG PO ×2 (04:34→11:49)
[2021-12-17 05:30] LABS: Glucose Point of Care 254 mg/dl (65-105)
[2021-12-17] MEDS: HYDROCORTISONE SODIUM SUCCINATE 100 MG/2 ML VIAL IV PUSH (05:31)
[2021-12-17] MEDS: CENTRAL LINE FLUSH 10 ML IV PUSH (05:31)
[2021-12-17 06:38] LABS: Hematocrit 21.3 % (42.0-52.0); Hemoglobin 7.2 g/dL (14.0-18.0); Immature Platelet Fraction Pct 6.8 % (0.9-11.2); Mean Corpuscular HGB Conc 33.8 g/dl (32-36); Mean Corpuscular Hemoglobin 30.3 pg (26-34); Mean Corpuscular Volume 89.5 fl (80-100); Mean Platelet Volume 11.1 fl (7.4-10.4); Platelet Count Result 48 k/mm3 (150-375); Red Blood Count 2.38 M/mm3 (4.6-6.20); Red Cell Distribution Width 14.6 % (11.5-14.5); White Blood Count 10.5 K/mm3 (4.5-10.0)
[2021-12-17 06:55] LABS: Alanine Aminotransferase 14 U/L (6-50); Albumin Level 2.9 g/dL (3.5-5.1); Alkaline Phosphatase 94 U/L (38-126); Anion Gap 16 mmol/L (8-16); Aspartate Amino Transferase 29 U/L (17-59); Bilirubin,Total 0.4 mg/dL (0.2-1.3); Calcium 7.5 mg/dL (8.4-10.2); Carbon Dioxide 16 mmol/L (22-30); Chloride 104 mmol/L (98-107); Estimated CRCL calculation 11 ml/min; Estimated Glomerular Filt Rate 12; Glucose 246 mg/dL (65-110); Magnesium 1.9 mg/dL (1.6-2.3); Potassium 4.1 mmol/L (3.4-5.0); Sodium 136 mmol/L (137-145)
[2021-12-17 06:58] LABS: Blood Urea Nitrogen 143 mg/dL (9-20)
[2021-12-17 07:27] LABS: Glucose Point of Care 258 mg/dl (65-105)
--- NOTE | 2021-12-17 07:38 | WPDINTPN ---
Progress Note: A&P Assessment and Plan (1) Gastrointestinal bleeding: Code(s): K92.2 - Gastrointestinal hemorrhage, unspecified Status: Acute Assessment and Plan: Status post EGD which showed esophagitis gastritis and duodenal ulcer. Duodenal ulcer was injected with epinephrine cauterized and clipped He received 4 units of PRBC and 2 units of FFP for coagulopathy which was ordered by GI Hemoglobin appears to be stable in the range of 8 now for last 2 days INR is 1.3 this morning 12/15 Hemoglobin dropped to 5.2 this morning and patient also had 1 bowel movement with blood in it Patient was transfused 2 units of PRBC before EGD and 1 unit later in the evening EGD showed reflux esophagitis single crater duodenal ulcer which was injected with epinephrine and cauterized. H pylori came back negative 12/16 Patient had another? bloody bowel movement.? Hemoglobin was checked and was 6.3 this afternoon.? patient was given DDAVP and 2 units of PRBC. I spoke to Dr. Odonnell ? and he recommended repeating tagged RBC scan. I also consulted General surgery and discussed case with Dr. Chance. later in the evening since tagged red cell scan came back positive and showed? Active GI bleed which may originate in the proximal small bowel or the transverse colon. I spoke to again and recommended transfer patient to outside facility for angiogram. Patient was seen by General surgery and please refer to the consultation note. I spoke to Dr. Justin by phone and requested initiating transfer to tertiary facility for angiogram. Please refer to his note for details. overnight patient required 2 more units of PRBC This morning explained the situation to the patient and he is agreeable to transfer to any facility where bed and IR capability is available. I have spoken to transfer center at [facility] and provided patient's information and I am waiting for call back. Meanwhile I will request 1 unit of PRBC to be transfused and another unit on hold. continue to monitor hemoglobin every 6 hours. GI plans to repeat EGD again this morning. Depending on EGD results and if patient is able to be transferred surgery will decide whether to proceed with surgical intervention which is not the best option but will be will be entertained as the last resort. I have spoken to Dr. Chance this morning and he has discussed case with Dr. Odonnell. I will also transfuse 2 units of platelets Continue PPI infusion NPO (2) Acute kidney injury superimposed on chronic kidney disease: Code(s): N17.9 - Acute kidney failure, unspecified; N18.9 - Chronic kidney disease, unspecified Status: Acute Assessment and Plan: Patient is being followed by Nephrology who is managing workup for his acute kidney injury BUN is disproportionately elevated as compared to creatinine secondary to GI bleed His urine output has been adequate till now and creatinine is elevated but stable. his potassium has been and normal range and despite elevated BUN he has been alert oriented x3 nephrology wants to get kidney biopsy but patient has been unstable due to his GI bleeding. as of now hemodialysis has been deferred by Nephrology but anticipate the patient will likely need hemodialysis soon. Since we are trying to transfer patient to a tertiary facility, I will defer initiating hemodialysis unless there is an emergency or patient is not able to be transferred. I will discuss with nephrology. If patient is not transferred and sulfonation equipment operator agrees, may have to initiate hemodialysis at [facility]. Hold diuretics as patient is on Levophed and also has good urine output without any diuretics Continue albumin due to his low blood pressure (3) Shock: Code(s): R57.9 - Shock, unspecified Status: Acute Assessment and Plan: Hemorrhagic and hypovolemic shock secondary to upper GI bleed Patient was given 2 L fluid bolus followed by 4 units of PRBC transfusion 7/8 c
[2021-12-17] MEDS: FLUTICASONE/SALMETEROL 230-21 MCG INHALER 1 PUFF 2 PUFF INHALATION (08:21)
[2021-12-17] MEDS: SODIUM BICARBONATE TAB 650 MG TABLET PO (08:34)
[2021-12-17] MEDS: MIDODRINE HCL 10 MG TABLET PO ×2 (08:34→11:49)
[2021-12-17] MEDS: TIMOLOL MALEATE 0.5% OP SOLN 5 ML BOTTLE 1 DROP LEFT EYE (08:35)
[2021-12-17] MEDS: INSULIN GLARGINE (*BKC) 100 UNITS/ML 10 UNITS SUB-Q (08:47)
--- NOTE | 2021-12-17 08:50 | PM.IMPN ---
Progress Note: A&P Assessment and Plan (1) Gastrointestinal bleeding: Code(s): K92.2 - Gastrointestinal hemorrhage, unspecified Status: Acute Assessment and Plan: Status post EGD which showed esophagitis gastritis and duodenal ulcer. Duodenal ulcer was injected with epinephrine cauterized and clipped He received 4 units of PRBC and 2 units of FFP for coagulopathy which was ordered by GI Hemoglobin appears to be stable in the range of 8 now for last 2 days INR is 1.3 12/15 Hemoglobin dropped to 5.2and patient also had 1 bowel movement with blood in it Patient was transfused 2 units of PRBC before EGD and 1 unit later in the evening EGD showed reflux esophagitis single crater duodenal ulcer which was injected with epinephrine and cauterized. H pylori came back negative 12/16 Patient had another? bloody bowel movement.? Hemoglobin was checked and was 6.3 this afternoon.? patient was given DDAVP and 2 units of PRBC. I spoke to Dr. Odonnell ? and he recommended repeating tagged RBC scan. consulted General surgery and discussed case with Dr. Chance. later in the evening since tagged red cell scan came back positive and showed? Active GI bleed which may originate in the proximal small bowel or the transverse colon. Plan for transfer to outside facility however beds not available Continue to monitor H&H GI plan to repeat EGD. General surgery on board for any need of surgical intervention. IR guided arterial embolization suggested however not available in this hospital. On PPI infusion (2) Acute kidney injury superimposed on chronic kidney disease: Code(s): N17.9 - Acute kidney failure, unspecified; N18.9 - Chronic kidney disease, unspecified Status: Acute Assessment and Plan: Patient is being followed by Nephrology Baseline creatinine of 1.5 Admission creatinine of 3.4 Likely secondary to ongoing GI bleed who is managing workup for his acute kidney injury BUN is disproportionately elevated as compared to creatinine secondary to GI bleed His urine output has been adequate till now and creatinine is elevated but stable. his potassium has been and normal range and despite elevated BUN he has been alert oriented x3 nephrology wants to get kidney biopsy but patient has been unstable due to his GI bleeding. as of now hemodialysis has been deferred by Nephrology but anticipate the patient will likely need hemodialysis soon. Since we are trying to transfer patient to a tertiary facility, I will defer initiating hemodialysis unless there is an emergency or patient is not able to be transferred. I will discuss with nephrology. If patient is not transferred and electrician locomotive agrees, may have to initiate hemodialysis at [facility]. Hold diuretics as patient is on Levophed and also has good urine output without any diuretics Continue albumin due to his low blood pressure (3) Shock: Code(s): R57.9 - Shock, unspecified Status: Acute Assessment and Plan: Hemorrhagic and hypovolemic shock secondary to upper GI bleed Patient was given 2 L fluid bolus followed by 4 units of PRBC transfusion 12/12 central venous catheter was emergently placed and patient was started on Levophed for blood pressure support Patient continues to require very low-dose Levophed to maintain his mean arterial pressure on and off. Currently off of Levophed. will continue Levophed titration to maintain mean arterial pressure 12/13 patient was given 2 units of FFP by GI He has been off of IV fluids and received PRBC transfusion yesterday He has been receiving 25% albumin which I will continue I will transfuse 1 more unit of PRBC this morning Continue midodrine Continue hydrocortisone (4) Duodenal ulcer: Code(s): K26.9 - Duodenal ulcer, unspecified as acute or chronic, without hemorrhage or perforation Status: Acute Assessment and Plan: See above (5) Gastritis: Code(s): K29.70 - Gastriti
--- NOTE | 2021-12-17 08:52 | PCWOUND ---
WOCN NOTE Received orders to burak both right and left abdomen for possible ostomy placement. Marked left abdomen as usual process, marked right abdomen high and more to the center due to patient already has a urostomy on the right side with a large hernia. placed black marker 'X' at locations and covered with tegaderm dressings.
--- NOTE | 2021-12-17 09:28 | WPDANESEPPF ---
Anes - Initial Pre Proc Eval Procedure: Operation Date: 12/11/21 18:00 Proposed Procedures p Esophagogastroduodenoscopy - Vitor Odonnell MD Operation Date: 12/15/21 14:45 Proposed Procedures p Esophagogastroduodenoscopy - Vitor Odonnell MD Operation Date: 12/17/21 10:45 Proposed Procedures p Esophagogastroduodenoscopy - Vtior Odonnell MD Date/Time: 12/17/21 09:28 Surgeon: Robert Trent MD Pre Op Diagnosis: Hyperkalemia Patient Data Age: 76 Gender: M Height: 1.7 m Weight: 85.5 kg Last Vital Signs Temp 36.4 C L 12/17/21 08:57 Pulse 80 12/17/21 08:57 Resp 16 12/17/21 08:57 BP 116/46 L 12/17/21 08:57 Pulse Ox 90 12/17/21 08:57 O2 Del Method Nasal Cannula 12/17/21 08:25 O2 Flow Rate 4 12/17/21 08:25 Allergies Allergy/AdvReac Type Severity Reaction Status Date / Time No Known Allergies Allergy Unknown Verified 12/07/21 19:52 Home Medications Medication Instructions Recorded Confirmed Type niacinamide 500 mg tablet 500 mg PO BID 06/30/21 12/08/21 History insulin glargine 100 unit/mL (3 20 unit (0.2 mL) subcut QPM #15 mL 11/04/21 12/08/21 Rx mL) subcutaneous pen (Basaglar KwikPen U-100 Insulin) cephalexin 500 mg capsule 500 mg PO Q6H #28 caps 12/01/21 12/08/21 Rx doxycycline hyclate 100 mg capsule 1 cap PO BID 12/07/21 12/08/21 History prednisone 20 mg tablet 1.5 tablet PO DAILY 12/07/21 12/08/21 History rosuvastatin 40 mg tablet 1 tablet PO DAILY 12/07/21 12/08/21 History fluticasone furoate 200 1 inh inhalation DAILY 12/08/21 12/08/21 History mcg-vilanterol 25 mcg/dose inhalation powder (Breo Ellipta) metformin 1,000 mg tablet 1 tablet PO BID 12/08/21 12/08/21 History timolol maleate 0.5 % eye drops 1 drp LEFT EYE BID 12/10/21 12/10/21 History Laboratory Tests 12/15/21 12/16/21 12/16/21 05:52 12:15 12:24 WBC RBC Hgb 6.3 g/dL L* g/dL (14.0-18.0) Hct 18.5 % L* % (42.0-52.0) MCV MCH MCHC RDW Plt Count MPV % Immature Plt Fraction Sodium Potassium Chloride Carbon Dioxide Anion Gap BUN Creatinine Estim Creat Clear Calc Estimated GFR Glucose POC Capillary Glucose 216 mg/dl H mg/dl (65-105) Calcium Magnesium Total Bilirubin AST ALT Alkaline Phosphatase Total Protein Albumin Blood Type A Negative Antibody Screen Negative Crossmatch See Detail 12/16/21 12/16/21 12/16/21 17:34 17:35 21:16 WBC RBC Hgb 7.9 g/dL L g/dL (14.0-18.0) Hct 23.3 % L % (42.0-52.0) MCV MCH MCHC RDW Plt Count MPV % Immature Plt Fraction Sodium Potassium Chloride Carbon Dioxide Anion Gap BUN Creatinine Estim Creat Clear Calc Estimated GFR Glucose POC Capillary Glucose 105 mg/dl mg/dl 141 mg/dl H mg/dl (65-105) (65-105) Calcium Magnesium Total Bilirubin AST ALT Alkaline Phosphatase Total Protein Albumin Blood Type Antibody Screen Crossmatch 12/16/21 12/17/21 12/17/21 21:52 00:27 02:02 WBC RBC Hgb 5.8 g/dL L* g/dL 6.3 g/dL L* g/dL (14.0-18.0) (14.0-18.0) Hct 17.4 % L* % 18.6 % L* % (42.0-52.0) (42.0-52.0) MCV MCH MCHC RDW Plt Count MPV % Immatu
--- NOTE | 2021-12-17 10:19 | PCFNICU ---
ICU Rounding Note: Pt current nutrition is NPO today. Nutrition recommendation: Advance diet when appropriate Last recorded weight is 85.5 kg - up from 80kg at admit. Bowel Motility: + BM 12/17 Labs Reviewed: Hgb:7.2, HCT:21.3, Alb:2.9, NA:136, BUN:143, Cr: 4.8, Glu:258 Meds Noted: lantus, lasix, zofran Skin: cellulitis Additional Notes: Pt currently NPO. Was on clear liquids, noted positive bowel movement. Pt to be transferred out today possibly. Following daily in ICU rounds. Will monitor every 3 days.
--- NOTE | 2021-12-17 10:22 | PM.TDS ---
Transfer Discharge Sum: Prov Provider Date of admission: 12/08/21 08:02 Primary care physician: Darvin Last MD Admitting clinician: Jeimy Lugo MD Consults: 12/07/21 22:38 Consult to Physician Routine Comment: Consulting Provider: Neyda Shabazz Reason for consultation: hyperkalemia Has provider been notified: Yes 12/11/21 Consult to Physician Routine Comment: Spoke w/ 10:25 (, [place]) Consulting Provider: Vitor Odonnell Reason for consultation: blood in stool, low hemaglobin Has provider been notified: Yes 12/16/21 Consult to Physician Routine Comment: called [phone] line was busy will call back@[phone](ER) Consulting Provider: Rafat Chance milk driver/MD group to consult: Surgery Reason for consultation: Duodenal Ulcer, Ongoing bleeding Has provider been notified: Yes 12/17/21 Wound/ET Consult Routine Reason for Consult:: WOCN nurse to burak both right and left abdomen for possible ostomy placement sites. DS: Admitting Diagnosis Discharge Date 12/17/2021 Admitting Diagnosis Generalized weakness DS: Discharge Diagnosis Discharge Diagnosis (1) Gastrointestinal bleeding: Code(s): K92.2 - Gastrointestinal hemorrhage, unspecified Status: Acute Assessment and Plan: Patient presented with generalized weakness however while inpatient and started having lower GI bleed. Status post EGD which showed esophagitis gastritis and duodenal ulcer. Duodenal ulcer was injected with epinephrine cauterized and clipped He received 4 units of PRBC and 2 units of FFP for coagulopathy which was ordered by GI 12/15 Hemoglobin dropped to 5.2 and patient also had 1 bowel movement with blood in it Patient was transfused 2 more units of PRBC before EGD and 1 unit later Repeat EGD showed reflux esophagitis single crater duodenal ulcer which was injected with epinephrine and cauterized. H pylori came back negative 12/16 Patient had another? bloody bowel movement.? Hemoglobin was checked and was 6.3.? patient was given DDAVP and 2 units of PRBC. Repeat tagged RBC scan was done which showed active GI bleed. Consulted General surgery. It was suggested to have IR guided intervention for his active GI bleed at which was not available in this facility. He was supported with transfusion of PRBC and platelets. He also required low-dose Levophed during this course. Case was discussed with outside facility and was accepted at [facility]. He is getting transferred there for further treatment. He also remains on PPI infusion (2) Acute kidney injury superimposed on chronic kidney disease: Code(s): N17.9 - Acute kidney failure, unspecified; N18.9 - Chronic kidney disease, unspecified Status: Acute Assessment and Plan: Patient is being followed by Nephrology Baseline creatinine of 1.5 Admission creatinine of 3.4 Likely secondary to ongoing GI bleed who is managing workup for his acute kidney injury Unclear etiology and Nephrology wanted to get a kidney biopsy but has been on stable due to ongoing GI bleed Urine output has been decreasing and consideration of hemodialysis is being made. (3) Shock: Code(s): R57.9 - Shock, unspecified Status: Acute Assessment and Plan: Hemorrhagic and hypovolemic shock secondary to upper GI bleed Patient was given 2 L fluid bolus followed by 4 units of PRBC transfusion 12/12 central venous catheter was emergently placed and patient was started on Levophed for blood pressure support Patient continues to require very low-dose Levophed to maintain his mean arterial pressure on and off. Currently off of Levophed. will continue Levophed titration to maintain mean arterial pressure 12/13 patient was given 2 units of FFP by GI He has been off of IV fluids and received PRBC transfusion He has been receiving 25% albumin this is continued Continue midodrine which was started along with hydrocortisone. (4) D
--- NOTE | 2021-12-17 10:50 | PM.EVENT ---
Event Note Event Note Event Note: patient has been accepted at [facility]. I spoke to accepting physician there and discuss case with him and provided all the information. I spoke to patient's at bedside and explained the reasoning for transfer. she is agreeable to transfer. This patient is transferring, GI has canceled EGD at this time. Patient has received 1 unit of PRBC and will go ahead and transfuse the platelets prior to transfer.
[2021-12-17] MEDS: ACETAMINOPHEN 325 MG TABLET 650 MG PO (11:50)
[2021-12-17 12:00] LABS: Glucose Point of Care 283 mg/dl (65-105)
[2021-12-17 14:57] LABS: Albumin 39 %; Measured Kappa Chains 1.27 mg/dL (<2.00); Measured Lambda Chains 1.93 mg/dL (<2.00); Pro/Creat Ratio 2863 mg/g creat (<=114); Total Kappa Chains 10.16 mg/24 h; Total Lambda Chains 15.44 mg/24 h
== END 2021-12-17 13:13 | disposition short-term general hospital (02) | DRG 682 ==
LOC: ANHED 22:44 → ANH2MED 23:20 → ANHICU 12-11 16:01
PROVIDERS: Chiropractor; Family Medicine; Internal Medicine; Internal Medicine Gastroenterology; Internal Medicine Nephrology; Nurse Practitioner Adult Health; Admitting Provider Internal Medicine; Emergency Provider Emergency Medicine; PCP Family Medicine; Visit Provider Internal Medicine
PROC: 0DJ08ZZ Inspection of Upper Intestinal Tract, Via Natural or Artificial Opening Endoscopic (ICD-10-PCS; CPT 43235; principal; 2021-12-11 18:00)
DX: N17.9 Acute kidney failure, unspecified (principal); K26.4 Chronic or unspecified duodenal ulcer with hemorrhage; R57.8 Other shock; R57.1 Hypovolemic shock; E87.1 Hypo-osmolality and hyponatremia; E87.2 Acidosis; L12.0 Bullous pemphigoid; N39.0 Urinary tract infection, site not specified; D68.9 Coagulation defect, unspecified; L03.116 Cellulitis of left lower limb; E87.5 Hyperkalemia; E78.5 Hyperlipidemia, unspecified; Z85.51 Personal history of malignant neoplasm of bladder; Z87.891 Personal history of nicotine dependence; Z99.81 Dependence on supplemental oxygen; Z91.19 Patient's noncompliance with other medical treatment and regimen; J44.9 Chronic obstructive pulmonary disease, unspecified; E86.0 Dehydration; E11.22 Type 2 diabetes mellitus with diabetic chronic kidney disease; I12.9 Hypertensive chronic kidney disease with stage 1 through stage 4 chronic kidney disease, or unspecified chronic kidney disease; R19.7 Diarrhea, unspecified; E11.21 Type 2 diabetes mellitus with diabetic nephropathy; K20.90 Esophagitis, unspecified without bleeding; K29.70 Gastritis, unspecified, without bleeding; E11.65 Type 2 diabetes mellitus with hyperglycemia; E87.6 Hypokalemia; K76.9 Liver disease, unspecified; N18.32 Chronic kidney disease, stage 3b; K21.00 Gastro-esophageal reflux disease with esophagitis, without bleeding
CPT/HCPCS: 36415; 36430; 36600; 71045; 74176; 76775; 78278; 80048; 80053; 80069; 81001; 82274; 82533; 82550; 82570; 82805; 82948; 83605; 83735; 83880; 83883; 83970; 84100; 84156; 84300; 84443; 85014; 85018; 85025; 85027; 85055; 85384; 85610; 85652; 86038; 86160; 86162; 86334; 86335; 86850; 86900; 86901; 86920; 87040; 87081; 87086; 87088; 93005; 94640; 96361; 96365; 96367; 96374; 96375; 97161; 97165; 99285; A9270; A9560; C1751; C9113; G0378; J0171; J0610; J0696; J1644; J1720; J1815; J1940; J2354; J2370; J2405; J2597; J2704; J2765; J3370; J3430; J3475; J3480; J7030; J7040; J7050; J7060; J7070; J7120; P9016; P9017; P9034; P9047